=== PATIENT | male | born 1935 | race Caucasian/White ===

== ENCOUNTER 2020-03-03 06:42 | Day surgery (SDC) | payer OTHER, BC ==
[2020-02-26 11:04] VITALS: BMI 22.3
--- NOTE | 2020-02-26 11:56 | RAD REPORT ---
EXAM DESCRIPTION: Emi Wylie And Edu (2 Views)02/26/2020 11:23 am CLINICAL HISTORY: Shortness of breath/preop for cardiac catheterization COMPARISON: 2019 FINDINGS: Lungs are hyperaerated. The lungs appear clear of acute infiltrate. The heart is normal size IMPRESSION: No acute abnormalities displayed
[2020-02-26 12:00] LABS: Absolute Lymphocytes (CBC) 2.2 K/uL (0.7-4.9); Basophils % 0.7 % (0-1.3); Hematocrit 45.8 % (39.6-49.0); Lymphocytes % 37.2 % (15.3-44.8); MPV 10.5 fL (7.6-11.3); RBC Red Blood Cell Count 5.07 M/uL (4.33-5.43)
[2020-02-26 12:06] LABS: Protime INR 1.37
[2020-03-03] MEDS ORDERED: LIDOCAINE 1% 20 ML MDV ONE (07:00)
[2020-03-03] MEDS ORDERED: HEPA 1000U/500MLS 1,000 UNIT/500 ML BAG IV ONE (07:00)
[2020-03-03] MEDS ORDERED: MIDAZOLAM HCL 2 MG/2 ML INJ ONE ×2 (07:01→07:54)
[2020-03-03] MEDS ORDERED: ATROPINE SULF 1 MG/10 ML SYR IV ONE (07:03)
[2020-03-03] MEDS ORDERED: FENTANYL CITR 100 MCG/2 ML ONE (07:03)
[2020-03-03] MEDS ORDERED: NA CHLORIDE 0.9% 0 ML ONE (07:04)
[2020-03-03] MEDS ORDERED: NA CHLORIDE 0.9% 500 ML ONE (07:18)
--- NOTE | 2020-03-03 08:41 | OP ---
Date of Procedure: 03/03/2020 Surgeon: Dustin Hutchins MD [employer]: Lou Vance. Procedure: Left heart catheterization, selective coronary arteriogram. Indication: Unstable angina. Indication: Mr. Brown is a patient who is 84 years old, has a history of atrial fibrillation on Xare lto that has been stable. His atrial fibrillation is paroxysmal. Came into the office with classic unstable angina symptoms, was scheduled for a heart catheterization today on 03/03/2020. He was brou ght to the geophysical laboratory chief as an outpatient, prepped and draped in the routine sterile fashion. Given Verse d and fentanyl for sedation. Using the Seldinger technique, 10 cc of xylocaine. A 6-Danish sheath w as introduced in the right common femoral artery. Angiography in the region was normal. StarClose w as used to close the case. Deangelo catheter left and right were used to do the coronary arteriograph y. His right coronary artery was normal. He had a codominant system. The circumflex was normal, bu t he had a 60% to 70% distal left main stenosis with 80 to 90% ostial all the way to the proximal sec ond diagonal LAD stenosis. A 6-Danish sheath and catheters were used. There were no complications. Anesthesia: Total conscious sedation was 45 minutes. Postoperative Diagnosis: Severe coronary artery disease. Plan: For CABG. I will make arrangements for him to be transferred to [place] for his surgery. We will hold Ketty for now. SELINA/ILIANA Voice ID: [id number] Report ID: [id number]
[2020-03-03 11:27] VITALS: O2SAT 99
[2020-03-03 12:03] VITALS: BP 148/62; TEMP 97.1
== END 2020-03-03 12:00 | disposition short-term general hospital (02) ==
LOC: CCL 06:42
DX: I25.110 Atherosclerotic heart disease of native coronary artery with unstable angina pectoris (principal); I48.0 Paroxysmal atrial fibrillation; I34.0 Nonrheumatic mitral (valve) insufficiency; E78.2 Mixed hyperlipidemia; Z79.01 Long term (current) use of anticoagulants; Z87.891 Personal history of nicotine dependence; Z20.828 Contact with and (suspected) exposure to other viral communicable diseases
CPT/HCPCS: 85025; 80048; 36415; 85610; 85730; 71046; 93454; U0002; C1893; J2250; J3010; J7040; J1644; J0583

== ENCOUNTER 2021-06-14 18:36 | Inpatient (IN) | payer OTHER, BC ==
--- OUTSIDE RECORDS SUMMARY | 2021-06-14 18:39 | XMS REPORT | Continuity of Care Document ---
:[address] [facility] t Address [address] [place] [address] Care Team Providers Name Role Phone TONY PRIEST Primary Care Physician Unavailable COOPER DE LA ROSA Attending Clinician Unavailable COOPER DE LA ROSA Admitting Clinician Unavailable Payers Payer Name Policy Type Policy Number Effective Date Expiration Date S ource MEDICARE A B [id number] [facility] INDEMNITY [place] [id number] 2001 OS 00:00:00 Problems This patient has no known problems. Allergies, Adverse Reactions, Alerts Allergy Allergy Status Severity Reaction(s) Onset Inactive Treating Comm ents Source Name Type Date Date Clinician NO KNOWN Allergy Active Medications This patient has no known medications. Vital Signs Vital Name Observation Time Observation Value Comments Source WEIGHT 2020-03-07 04:00:00 75.161 kg WEIGHT 2020-03-06 04:40:00 75.388 kg WEIGHT 2020-03-05 03:58:00 75.796 kg WEIGHT 2020-03-18 10:57:00 74.844 kg WEIGHT 2020-03-07 04:00:00 75.161 kg WEIGHT 2020-03-06 04:40:00 75.388 kg WEIGHT 2020-03-05 03:58:00 75.796 kg Procedures This patient has no known procedures. Encounters Start End Encounter Admission Attending Care Care Encounter Source Date/Time Date/Time Type Type Clinicians Facility Department ID 2021-01-08 Inpatient ER HIRA DE LA ROSA [facility] [id number] [facility] 18:20:23 [place] 2020-03-18 2020-03-18 Out[facility] [id number] 00:00:00 00:00:00 [place] 2020-03-16 2020-03-16 Outpatient [facility] [id number] 00:[facility]:00 00:00:00 [place] Results Test Description Test Time Test Comments Results Result Comments Source TISSUE EXAM 2020-03-09 Surgical Pathology 16:17:00 Report Case: [id number] Authorizing Provider: Nadeem De La Rosa, Collected: 03/03/2020 03:01 PM Ordering Location: [facility] Received: 03/04/2020 08:21 AM PERIOPERATIVE SERVICES Pathologist: Tre Eugene MD Specimen: Chest, Mole in chest SKIN, CHEST, EXCISION: - SEBORRHEIC KERATOSIS, IRRITATED AND INFLAMED Signing Pathologist Direct Phone Line: [phone] ically signed by Tre Eugene MD on 03/09/2020 at 4:17 [id number] artery disease with angina pectoris, unspecified vessel or lesion type, unspecified whether eagle or transplanted heart ChestReceived in formalin labeled the patient's name, accession number and "mole in chest" is a unoriented 2.4 x 0.4 cm guerrero-pink skin ellipse that is excised to a depth of 0.7 cm. There is a 0.5 x 0.4 x 0.1 cm guerrero asymmetrical, keratotic lesion that is abutting the nearest long axis margin, and is 0.7 cm from the nearest tip. The margin is inked blue. The specimen is serially sectioned and entirely submitted in A1-A2, with the tips in A1.MAYCO Hunt HT (ASCP)Sections show skin with acanthosis, hyperkeratosis, and horn pseudocysts. Some keratinocytes form squamous eddies. Reactive changes are present. There is an associated infiltrate of lymphocytes and histiocytes. POCT-GLUCOSE METER 2020-03-08 10:21:00 Test Item Value Reference Range Interpretation Comme nts POC-GLUCOSE METER (BEAKER) 135 mg/dL 70-110 H : TESTED AT [facility] [address] (test code = 1538) [place], [id number]: Manager Of International/Techni suma ID = [id number] for MO DUGGAN [place] BASIC METABOLIC [id number] 07:18:00 Test Item Value Reference Range Interpretation Comments SODIUM (BEAKER) 135 meq/L 136-145 L (test code = 381) POTASSIUM (BEAKER) 3.6 meq/L 3.5-5.1 (test code = 379) CHLORIDE (BEAKER) 96 meq/L 98-107 L (test code = 382) CO2 (BEAKER) (test 31 meq/L 22-29 H code = 355) BLOOD UREA NITROGEN 12 mg/dL 7-21 (BEAKER) (test code = 354) CREATININE (BEAKER) 0.81 mg/dL 0.57-1.25 (test code = 358) GLUCOSE RANDOM 105 mg/dL 70-105 (BEAKER) (test code = 652) CALCIUM (BEAKER) 8.3 mg/dL 8.4-10.2 L (test code = 697) EGFR (BEAKER) (test 91 mL/min/1.73 ESTIMA LULU GFR IS code = 1092) sq m NOT ACCURATE CREATININE CLEARANCE IN PREDICTING GLOMERULAR FILTRATION RATE . ESTIMATED GFR I S NOT APPLICABLE FOR DIALYSIS PATIEN TS. Manager Of International ID - FIDEL [id number] 07:18:00 Test Item Value Reference Range Interpretation Comments MAGNESIUM (BEAKER) (test code = 1.7 mg/dL 1.6-2.6 627) Manager Of International ID - FIDEL [id number] 07:18:00 Test Item Value Reference Range Interpretation Comments PHOSPHORUS (BEAKER) (test code = 2.7 mg/dL 2.3-4.7 604) Manager Of International ID - FIDEL LPOCT-GLUCOSE [id number] 07:02:00 Test Item Value Reference Range Interpretation Comments POC-GLUCOSE METER 116 mg/dL 70-110 H : TESTED A T [facility] 6720 (BEAKER) (test code = [facility], 1538) [address]: Manager Of International/Techni suma ID = [id number] for FLOYD LIN POCT-GLUCOSE [id number] 07:01:00 Test Item Value Reference Range Interpretation Comments POC-GLUCOSE METER 124 mg/dL 70-110 H : TESTED A T [facility] 6720 (BEAKER) (test code = [facility], 1538) [address]: Manager Of International/Techni suma ID = [id number] for FLOYD LIN CBC (HEMOGRAM ONLY)2020-03-08 06:44:00 Test Item Value Reference Range Interpretation Comments WHITE BLOOD CELL COUNT (BEAKER) 7.4 K/ L 3.5-10.5 (test code = 775) RED BLOOD CELL COUNT (BEAKER) 3.10 M/ L 4.63-6.08 L (test code = 761) HEMOGLOBIN (BEAKER) (test code = 9.4 GM/DL 13.7-17.5 L 410) HEMATOCRIT (BEAKER) (test code = 28.4 % 40.1-51.0 L 411) MEAN CORPUSCULAR VOLUME (BEAKER) 91.6 fL 79.0-92.2 (test code = 753) MEAN CORPUSCULAR HEMOGLOBIN 30.3 pg 25.7-32.2 (BEAKER) (test code = 751) MEAN CORPUSCULAR HEMOGLOBIN CONC 33.1 GM/DL 32.3-36.5 (BEAKER) (test code = 752) RED CELL DISTRIBUTION WIDTH 12.5 % 11.6-14.4 (BEAKER) (test code = 412) PLATELET COUNT (BEAKER) (test 139 K/CU MM 150-450 L code = 756) MEAN PLATELET VOLUME (BEAKER) 12.1 fL 9.4-12.4 (test code = 754) NUCLEATED RED BLOOD CELLS 0 /100 WBC 0-0 (BEAKER) (test code = 413) POCT-GLUCOSE [id number] 21:50:00 Test Item Value Reference Range Interpretation Comments POC-GLUCOSE METER 122 mg/dL 70-110 H : TESTED A T [facility] [address] (BEAKER) (test code = [place], 1538) [address]: Manager Of International/Techni suma ID = [id number] for PE RALES, EDGARDO CT, CHEST, WITHOUT [id number] 09:41:00Unlisted Reason for Exam - Click Yes and Enter Reason Below->No [facility] 1935 Sex: MFINAL REPORT CT of the chest, without contrast, 03/07/2020. Hist ory: Shortness of breath. Posterior cardiovascular surgery. Comparison: Chest x- ray 03/05/2020, 03/03/2020. Technique: Multidetector CT scanning of the chest was performed from the level of the thoracic inlet to the upper abdomen without IV or oral contrast. This exam was performed according to our departmental dose- optimization program which includes automated exposure control, adjustment of the mA and/or kV according to patient size and/or use of iterative reconstruction technique. Discussion: Evaluation of the heart and mediastinal structures is limited secondary to lack of intravenous contrast. The heart, aorta, and pulmonary vessels are normal in size. Median sternotomy wires and post ACB findings are noted. There is no axillary or mediastinal adenopathy. The central airways are patent. 2 areas of linear opacities are present in the left lower lobe suggestive of postsurgical change versus prior chest tube tract. Small bilateral pleural effusions are present, left slightly more than right. Bibasilar dependent atelectasis isnoted. A calcified granuloma is present in the left lower lobe. There is no evidence of consolidation or suspicious nodule. The soft tissues and osseous structures are unremarkable. Limited evaluationof the upper abdomen shows normal adrenal glands. IMPRESSION:Bibasilar atelectasis and small bilateral pleural effusions. No evidence of CHF or pneumonia. Signed: Nadeem Moya MDReport Verified Date/Time: 03/07/2020 09:41:32 Reading Location: [facility] [address] [place] [address] Consult Reading Room POCT-GLUCOSE [id number] 08:43:00 Test Item Value Reference Range Interpretation Comments POC-GLUCOSE METER 110 mg/dL 70-110 : TESTED A T [facility] [address] [facility] (test code = [place], 1538) [address]: Manager Of International/Techni suma ID = [id number] for FLOYD LIN BASIC METABOLIC [id number] 05:39:00 Test Item Value Reference Range Interpretation Comments SODIUM (BEAKER) 133 meq/L 136-145 L (test code = 381) POTASSIUM (BEAKER) 3.7 meq/L 3.5-5.1 (test code = 379) CHLORIDE (BEAKER) 96 meq/L 98-107 L (test code = 382) CO2 (BEAKER) (test 29 meq/L 22-29 code = 355) BLOOD UREA NITROGEN 13 mg/dL 7-21 (BEAKER) (test code = 354) CREATININE (BEAKER) 0.83 mg/dL 0.57-1.25 (test code = 358) GLUCOSE RANDOM 116 mg/dL 70-105 H (BEAKER) (test code = 652) CALCIUM (BEAKER) 8.4 mg/dL 8.4-10.2 (test code = 697) EGFR (BEAKER) (test 88 mL/min/1.73 ESTIMA LULU GFR IS code = 1092) sq m NOT ACCURATE CREATININE CLEARANCE IN PREDICTING GLOMERULAR FILTRATION RATE . ESTIMATED GFR I S NOT APPLICABLE FOR DIALYSIS PATIEN TS. Manager Of International ID - [id number] 05:39:00 Test Item Value Reference Range Interpretation Comments MAGNESIUM (BEAKER) (test code = 1.7 mg/dL 1.6-2.6 627) Manager Of International ID - [id number] 05:39:00 Test Item Value Reference Range Interpretation Comments PHOSPHORUS (BEAKER) (test code = 2.5 mg/dL 2.3-4.7 604) Manager Of International ID - EDASICBC (HEMOGRAM ONLY)2020-03-07 05:00:00 Test Item Value Reference Range Interpretation Comments WHITE BLOOD CELL COUNT (BEAKER) 7.2 K/ L 3.5-10.5 (test code = 775) RED BLOOD CELL COUNT (BEAKER) 3.15 M/ L 4.63-6.08 L (test code = 761) HEMOGLOBIN (BEAKER) (test code = 9.5 GM/DL 13.7-17.5 L 410) HEMATOCRIT (BEAKER) (test code = 29.1 % 40.1-51.0 L 411) MEAN CORPUSCULAR VOLUME (BEAKER) 92.4 fL 79.0-92.2 H (test code = 753) MEAN CORPUSCULAR HEMOGLOBIN 30.2 pg 25.7-32.2 (BEAKER) (test code = 751) MEAN CORPUSCULAR HEMOGLOBIN CONC 32.6 GM/DL 32.3-36.5 (BEAKER) (test code = 752) RED CELL DISTRIBUTION WIDTH 12.4 % 11.6-14.4 (BEAKER) (test code = 412) PLATELET COUNT (BEAKER) (test 108 K/CU MM 150-450 L code = 756) MEAN PLATELET VOLUME (BEAKER) 12.7 fL 9.4-12.4 H (test code = 754) NUCLEATED RED BLOOD CELLS 0 /100 WBC 0-0 (BEAKER) (test code = 413) BUN AND CREATININE [id number] 17:55:00 Test Item Value Reference Range Interpretation Comments BLOOD UREA NITROGEN 12 mg/dL 7-21 (BEAKER) (test code = 354) CREATININE (BEAKER) 0.84 mg/dL 0.57-1.25 (test code = 358) BUN/CREAT RATIO 14 For a normal (BEAKER) (test code individu al on a = [id number]) normal diet, t he reference inter karol for the mass ra casie ranges between 12:1 and 20:1 (BUN i n mg/dL/creatinin e in mg/dL) EGFR (BEAKER) (test 87 mL/min/1.73 ESTIMA LULU GFR IS code = 1092) sq m NOT ACCURATE CREATININE CLEARANCE IN PREDICTING GLOMERULAR FILTRATION RATE . ESTIMATED GFR I S NOT APPLICABLE FOR DIALYSIS PATIEN TS. Manager Of International ID - ADMINPOCT-GLUCOSE [id number] 16:29:00 Test Item Value Reference Range Interpretation Comments POC-GLUCOSE METER 139 mg/dL 70-110 H : TESTED A T [facility] [address] ([employer]) (test code = [facility], 1538) [address]: Manager Of International/Techni suma ID = [id number] for Roxanne Manley POCT-GLUCOSE [id number] 12:23:00 Test Item Value Reference Range Interpretation Comments POC-GLUCOSE METER 143 mg/dL 70-110 H : TESTED A T [facility] 67[address] ([employer]) (test code = [facility], 1538) [address]: Manager Of International/Techni suma ID = [id number] for Roxanne Manley POCT-GLUCOSE [id number] 08:52:00 Test Item Value Reference Range Interpretation Comments POC-GLUCOSE METER 132 mg/dL 70-110 H : TESTED A T [facility] 6720 (BEAKER) (test code = CALE Frye [facility], 1538) [address]: Manager Of International/Techni suma ID = [id number] for Roxanne Manley BASIC METABOLIC [id number] 06:11:00 Test Item Value Reference Range Interpretation Comments SODIUM (BEAKER) 136 meq/L 136-145 (test code = 381) POTASSIUM (BEAKER) 4.0 meq/L 3.5-5.1 (test code = 379) CHLORIDE (BEAKER) 101 meq/L 98-107 (test code = 382) CO2 (BEAKER) (test 28 meq/L 22-29 code = 355) BLOOD UREA NITROGEN 13 mg/dL 7-21 (BEAKER) (test code = 354) CREATININE (BEAKER) 0.74 mg/dL 0.57-1.25 (test code = 358) GLUCOSE RANDOM 115 mg/dL 70-105 H (BEAKER) (test code = 652) CALCIUM (BEAKER) 8.3 mg/dL 8.4-10.2 L (test code = 697) EGFR (BEAKER) (test 101 mL/min/1.73 ESTIM ATED GFR IS code = 1092) sq m NOT ACCURATE CREATININE CLEARANCE IN PREDICTING GLOMERULAR FILTRATION RATE . ESTIMATED GFR I S NOT APPLICABLE FOR DIALYSIS PATIEN TS. Manager Of International ID - [id number] 06:11:00 Test Item Value Reference Range Interpretation Comments PHOSPHORUS (BEAKER) (test code = 2.1 mg/dL 2.3-4.7 L 604) Manager Of International ID - ADMINCBC W/PLT COUNT & AUTO [id number] 05:34:00 Test Item Value Reference Range Interpretation Comments WHITE BLOOD CELL COUNT (BEAKER) 7.5 K/ L 3.5-10.5 (test code = 775) RED BLOOD CELL COUNT (BEAKER) 3.06 M/ L 4.63-6.08 L (test code = 761) HEMOGLOBIN (BEAKER) (test code = 9.3 GM/DL 13.7-17.5 L 410) HEMATOCRIT (BEAKER) (test code = 28.4 % 40.1-51.0 L 411) MEAN CORPUSCULAR VOLUME (BEAKER) 92.8 fL 79.0-92.2 H (test code = 753) MEAN CORPUSCULAR HEMOGLOBIN 30.4 pg 25.7-32.2 (BEAKER) (test code = 751) MEAN CORPUSCULAR HEMOGLOBIN CONC 32.7 GM/DL 32.3-36.5 (BEAKER) (test code = 752) RED CELL DISTRIBUTION WIDTH 12.3 % 11.6-14.4 (BEAKER) (test code = 412) PLATELET COUNT (BEAKER) (test code 77 K/CU MM 150-450 L = 756) MEAN PLATELET VOLUME (BEAKER) 12.7 fL 9.4-12.4 H (test code = 754) NUCLEATED RED BLOOD CELLS (BEAKER) 0 /100 WBC 0-0 (test code = 413) NEUTROPHILS RELATIVE PERCENT 72 % (BEAKER) (test code = 429) LYMPHOCYTES RELATIVE PERCENT 17 % (BEAKER) (test code = 430) MONOCYTES RELATIVE PERCENT 9 % (BEAKER) (test code = 431) EOSINOPHILS RELATIVE PERCENT 2 % (BEAKER) (test code = 432) BASOPHILS RELATIVE PERCENT 0 % (BEAKER) (test code = 437) NEUTROPHILS ABSOLUTE COUNT 5.41 K/ L 1.78-5.38 H (BEAKER) (test code = 670) LYMPHOCYTES ABSOLUTE COUNT 1.23 K/ L 1.32-3.57 L (BEAKER) (test code = 414) MONOCYTES ABSOLUTE COUNT (BEAKER) 0.68 K/ L 0.30-0.82 (test code = 415) EOSINOPHILS ABSOLUTE COUNT 0.11 K/ L 0.04-0.54 (BEAKER) (test code = 416) BASOPHILS ABSOLUTE COUNT (BEAKER) 0.02 K/ L 0.01-0.08 (test code = 417) IMMATURE GRANULOCYTES-RELATIVE 0 % 0-1 PERCENT (BEAKER) (test code = 2801) POCT-GLUCOSE [id number] 22:09:00 Test Item Value Reference Range Interpretation Comments POC-GLUCOSE METER 127 mg/dL 70-110 H : TESTED A T [facility] 6720 (BEAKER) (test code = [place], 1538) [address]: Manager Of International/Techni suma ID = [id number] for Re yes, Sairy POCT-GLUCOSE [id number] 17:18:00 Test Item Value Reference Range Interpretation Comments POC-GLUCOSE METER 129 mg/dL 70-110 H : TESTED A T [facility] 6720 (BEAKER) (test code = [facility] Melva [facility], 1538) [address]: Manager Of International/Techni suma ID = [id number] for GO MEZ (V), SULEYDI POCT-GLUCOSE [id number] 12:42:00 Test Item Value Reference Range Interpretation Comments POC-GLUCOSE METER 151 mg/dL 70-110 H : TESTED A T [facility] 6720 (BEAKER) (test code = [facility], 1538) 31256: Manager Of International/Techni suma ID = [id number] for OR STONEY RAZO RAD, CHEST, 1 VIEW, NON [id number] 10:28:00Reason for exam:->shortness of breathShould this be performed at the bedside?->Yes [facility] 1935 Sex: MFINAL REPORT INDICATION: shortness of breath COMPARISON: March 04, 2020 TECHNIQUE: Single frontal view of the chest. FINDINGS: Lungs and pleura: Clear lungs. No effusion.Heart and mediastinum: Normal heart size. Unremarkable mediastinal contours.Osseous structures: Noacute abnormality.Other: None. IMPRESSION: No acute intrathoracic abnormality. Signed: Eddie Khalil Verified Date/Time: 03/05/2020 10:28:06 Reading Location: [facility] Reading Room POCT-GLUCOSE [id number] 08:12:00 Test Item Value Reference Range Interpretation Comments POC-GLUCOSE METER 100 mg/dL 70-110 : TESTED A T [facility] 6720 (BEAKER) (test code = [place], 1538) [address]: Manager Of International/Techni suma ID = [id number] for OR CHRISTOPHERSTONEY Porter BASIC METABOLIC [id number] 06:22:00 Test Item Value Reference Range Interpretation Comments SODIUM (BEAKER) 135 meq/L 136-145 L (test code = 381) POTASSIUM (BEAKER) 3.9 meq/L 3.5-5.1 (test code = 379) CHLORIDE (BEAKER) 101 meq/L 98-107 (test code = 382) CO2 (BEAKER) (test 26 meq/L 22-29 code = 355) BLOOD UREA NITROGEN 15 mg/dL 7-21 (BEAKER) (test code = 354) CREATININE (BEAKER) 0.86 mg/dL 0.57-1.25 (test code = 358) GLUCOSE RANDOM 120 mg/dL 70-105 H (BEAKER) (test code = 652) CALCIUM (BEAKER) 8.1 mg/dL 8.4-10.2 L (test code = 697) EGFR (BEAKER) (test 85 mL/min/1.73 ESTIMA LULU GFR IS code = 1092) sq m NOT ACCURATE CREATININE CLEARANCE IN PREDICTING GLOMERULAR FILTRATION RATE . ESTIMATED GFR I S NOT APPLICABLE FOR DIALYSIS PATIEN TS. Manager Of International ID - JEFRY [id number] 06:22:00 Test Item Value Reference Range Interpretation Comments MAGNESIUM (BEAKER) (test code = 1.9 mg/dL 1.6-2.6 627) Manager Of International ID - JEFRY [id number] 06:22:00 Test Item Value Reference Range Interpretation Comments PHOSPHORUS (BEAKER) (test code = 2.0 mg/dL 2.3-4.7 L 604) Manager Of International ID - JEFRY MCBC (HEMOGRAM ONLY)2020-03-05 05:14:00 Test Item Value Reference Range Interpretation Comments WHITE BLOOD CELL COUNT (BEAKER) 8.5 K/ L 3.5-10.5 (test code = 775) RED BLOOD CELL COUNT (BEAKER) 2.99 M/ L 4.63-6.08 L (test code = 761) HEMOGLOBIN (BEAKER) (test code = 9.1 GM/DL 13.7-17.5 L 410) HEMATOCRIT (BEAKER) (test code = 28.3 % 40.1-51.0 L 411) MEAN CORPUSCULAR VOLUME (BEAKER) 94.6 fL 79.0-92.2 H (test code = 753) MEAN CORPUSCULAR HEMOGLOBIN 30.4 pg 25.7-32.2 (BEAKER) (test code = 751) MEAN CORPUSCULAR HEMOGLOBIN CONC 32.2 GM/DL 32.3-36.5 L (BEAKER) (test code = 752) RED CELL DISTRIBUTION WIDTH 12.4 % 11.6-14.4 (BEAKER) (test code = 412) PLATELET COUNT (BEAKER) (test code 70 K/CU MM 150-450 L = 756) MEAN PLATELET VOLUME (BEAKER) 12.4 fL 9.4-12.4 (test code = 754) NUCLEATED RED BLOOD CELLS (BEAKER) 0 /100 WBC 0-0 (test code = 413) POCT-GLUCOSE [id number] 21:40:00 Test Item Value Reference Range Interpretation Comments POC-GLUCOSE METER 134 mg/dL 70-110 H : TESTED A T [facility] 6720 (BEAKER) (test code = [facility], 1538) 04692: Manager Of International/Techni suma ID = [id number] for Re yes, Sairy POCT-GLUCOSE [id number] 17:30:00 Test Item Value Reference Range Interpretation Comments POC-GLUCOSE METER 117 mg/dL 70-110 H : TESTED A T [facility] 6720 (BEAKER) (test code = [facility], 1538) 23630: Manager Of International/Techni suma ID = [id number] for MU BERNY LEVIN [id number] 11:56:00 Test Item Value Reference Range Interpretation Comments MAGNESIUM (BEAKER) (test code = 2.1 mg/dL 1.6-2.6 627) Manager Of International ID - AAHAMIDPOCT-GLUCOSE [id number] 10:28:00 Test Item Value Reference Range Interpretation Comments POC-GLUCOSE METER 136 mg/dL 70-110 H : TESTED A T [facility] 6720 (BEAKER) (test code = CALE Frye [facility], 1538) 50[address]: Manager Of International/Techni suma ID = [id number] for BERNY CALL LACTIC ACID, [id number] 05:34:00 Test Item Value Reference Range Interpretation Comments LACTATE BLOOD ARTERIAL (2) 1.2 mmol/L 0.5-2.2 (BEAKER) (test code = 2874) Manager Of International ID - EDASIBLOOD GAS, [id number] 05:19:00 Test Item Value Reference Range Interpretation Comments PH ARTERIAL (BEAKER) (test code = 7.38 7.35-7.45 383) PCO2 ARTERIAL (BEAKER) (test code 43 mm Hg 35-45 = 384) PO2 ARTERIAL (BEAKER) (test code 142 mm Hg 80-90 H = 385) O2 SATURATION ARTERIAL (BEAKER) 98.7 % 96.0-97.0 H (test code = 386) HCO3 ARTERIAL (BEAKER) (test code 25 mmol/L 21-29 = 388) BASE EXCESS ARTERIAL (BEAKER) -0.4 mmol/L -2.0-3.0 (test code = 387) PATIENT TEMPERATURE (BEAKER) 37.5 (test code = 1818) FIO2 (BEAKER) (test code = 1819) 36.0 POCT-GLUCOSE [id number] 05:17:00 Test Item Value Reference Range Interpretation Comments POC-GLUCOSE METER 168 mg/dL 70-110 H : TESTED A T [facility] 6720 (BEAKER) (test code = CALE Frye [facility], 153) 62479: Manager Of International/Techni suma ID = [id number] for Jv Domingo RAD, CHEST, 1 VIEW, NON [id number] 03:28:00while patient is intubated or has chest tubes.Reason for exam:->Status post CV SurgeryShould thisbe performed at the bedside?->Yes [facility] 1935 Sex: MFINAL REPORT CLINICAL INDICATION: Postop Comparison: 03/03/2020 The e xamination is limited by exclusion of the left costophrenic sulcus. The cardiomediastinal contours are stable. The lung volumes are stable after extubation. There is no focal consolidation, pneumothorax, large pleural effusion or evidence of overt pulmonary edema. Remaining support lines are stable. Signed: Jamil Cox MDReport Verified Date/Time: 03/04/2020 03:28:16 BASIC METABOLIC [id number] 03:25:00 Test Item Value Reference Range Interpretation Comments SODIUM (BEAKER) 138 meq/L 136-145 (test code = 381) POTASSIUM (BEAKER) 4.3 meq/L 3.5-5.1 (test code = 379) CHLORIDE (BEAKER) 106 meq/L 98-107 (test code = 382) CO2 (BEAKER) (test 21 meq/L 22-29 L code = 355) BLOOD UREA NITROGEN 13 mg/dL 7-21 (BEAKER) (test code = 354) CREATININE (BEAKER) 0.81 mg/dL 0.57-1.25 (test code = 358) GLUCOSE RANDOM 186 mg/dL 70-105 H (BEAKER) (test code = 652) CALCIUM (BEAKER) 7.8 mg/dL 8.4-10.2 L (test code = 697) EGFR (BEAKER) (test 91 mL/min/1.73 ESTIMA LULU GFR IS code = 1092) sq m NOT ACCURATE CREATININE CLEARANCE IN PREDICTING GLOMERULAR FILTRATION RATE . ESTIMATED GFR I S NOT APPLICABLE FOR DIALYSIS PATIEN TS. Manager Of International ID - [id number] 03:09:00 Test Item Value Reference Range Interpretation Comments MAGNESIUM (BEAKER) (test code = 1.8 mg/dL 1.6-2.6 627) Manager Of International ID - [id number] 03:09:00 Test Item Value Reference Range Interpretation Comments PHOSPHORUS (BEAKER) (test code = 3.1 mg/dL 2.3-4.7 604) Manager Of International ID - EDASICBC (HEMOGRAM ONLY)2020-03-04 02:54:00 Test Item Value Reference Range Interpretation Comments WHITE BLOOD CELL COUNT (BEAKER) 8.4 K/ L 3.5-10.5 (test code = 775) RED BLOOD CELL COUNT (BEAKER) 3.04 M/ L 4.63-6.08 L (test code = 761) HEMOGLOBIN (BEAKER) (test code = 9.1 GM/DL 13.7-17.5 L 410) HEMATOCRIT (BEAKER) (test code = 28.3 % 40.1-51.0 L 411) MEAN CORPUSCULAR VOLUME (BEAKER) 93.1 fL 79.0-92.2 H (test code = 753) MEAN CORPUSCULAR HEMOGLOBIN 29.9 pg 25.7-32.2 (BEAKER) (test code = 751) MEAN CORPUSCULAR HEMOGLOBIN CONC 32.2 GM/DL 32.3-36.5 L (BEAKER) (test code = 752) RED CELL DISTRIBUTION WIDTH 12.1 % 11.6-14.4 (BEAKER) (test code = 412) PLATELET COUNT (BEAKER) (test code 70 K/CU MM 150-450 L = 756) MEAN PLATELET VOLUME (BEAKER) 12.2 fL 9.4-12.4 (test code = 754) NUCLEATED RED BLOOD CELLS (BEAKER) 0 /100 WBC 0-0 (test code = 413) LACTIC ACID, [id number] 00:26:00 Test Item Value Reference Range Interpretation Comments LACTATE BLOOD ARTERIAL (2) 1.6 mmol/L 0.5-2.2 (BEAKER) (test code = 2874) Manager Of International ID - JEFRY MPOCT-GLUCOSE [id number] 00:19:00 Test Item Value Reference Range Interpretation Comments POC-GLUCOSE METER 171 mg/dL 70-110 H : TESTED A T [facility] 6720 (BEAKER) (test code = [place], 1538) [address]: Manager Of International/Techni suma ID = [id number] for Jv Domingo BLOOD GAS, [id number] 00:16:00 Test Item Value Reference Range Interpretation Comments PH ARTERIAL (BEAKER) (test code = 7.36 7.35-7.45 383) PCO2 ARTERIAL (BEAKER) (test code 42 mm Hg 35-45 = 384) PO2 ARTERIAL (BEAKER) (test code 145 mm Hg 80-90 H = 385) O2 SATURATION ARTERIAL (BEAKER) 98.7 % 96.0-97.0 H (test code = 386) HCO3 ARTERIAL (BEAKER) (test code 23 mmol/L 21-29 = 388) BASE EXCESS ARTERIAL (BEAKER) -2.2 mmol/L -2.0-3.0 L (test code = 387) PATIENT TEMPERATURE (BEAKER) 37.5 (test code = 1818) FIO2 (BEAKER) (test code = 1819) 36.0 BLOOD GAS, [id number] 21:27:00 Test Item Value Reference Range Interpretation Comments PH ARTERIAL (BEAKER) (test code = 7.37 7.35-7.45 383) PCO2 ARTERIAL (BEAKER) (test code 41 mm Hg 35-45 = 384) PO2 ARTERIAL (BEAKER) (test code 146 mm Hg 80-90 H = 385) O2 SATURATION ARTERIAL (BEAKER) 98.9 % 96.0-97.0 H (test code = 386) HCO3 ARTERIAL (BEAKER) (test code 23 mmol/L 21-29 = 388) BASE EXCESS ARTERIAL (BEAKER) -2.1 mmol/L -2.0-3.0 L (test code = 387) PATIENT TEMPERATURE (BEAKER) 36.1 (test code = 1818) FIO2 (BEAKER) (test code = 1819) 40.0 LACTIC ACID, [id number] 19:55:00 Test Item Value Reference Range Interpretation Comments LACTATE BLOOD 2.3 mmol/L 0.5-2.2 H Specimen sligh tly ARTERIAL (2) (BEAKER) hemoly zed (test code = 2874) Manager Of International ID - BSCBC W/PLT COUNT & AUTO [id number] 19:39:00 Test Item Value Reference Range Interpretation Comments WHITE BLOOD CELL COUNT (BEAKER) 15.2 K/ L 3.5-10.5 H (test code = 775) RED BLOOD CELL COUNT (BEAKER) 3.39 M/ L 4.63-6.08 L (test code = 761) HEMOGLOBIN (BEAKER) (test code = 10.4 GM/DL 13.7-17.5 L 410) HEMATOCRIT (BEAKER) (test code = 31.8 % 40.1-51.0 L 411) MEAN CORPUSCULAR VOLUME (BEAKER) 93.8 fL 79.0-92.2 H (test code = 753) MEAN CORPUSCULAR HEMOGLOBIN 30.7 pg 25.7-32.2 (BEAKER) (test code = 751) MEAN CORPUSCULAR HEMOGLOBIN CONC 32.7 GM/DL 32.3-36.5 (BEAKER) (test code = 752) RED CELL DISTRIBUTION WIDTH 12.2 % 11.6-14.4 (BEAKER) (test code = 412) PLATELET COUNT (BEAKER) (test code 91 K/CU MM 150-450 L = 756) MEAN PLATELET VOLUME (BEAKER) 12.1 fL 9.4-12.4 (test code = 754) NUCLEATED RED BLOOD CELLS (BEAKER) 0 /100 WBC 0-0 (test code = 413) NEUTROPHILS RELATIVE PERCENT 76 % (BEAKER) (test code = 429) LYMPHOCYTES RELATIVE PERCENT 19 % (BEAKER) (test code = 430) MONOCYTES RELATIVE PERCENT 4 % (BEAKER) (test code = 431) EOSINOPHILS RELATIVE PERCENT 1 % (BEAKER) (test code = 432) BASOPHILS RELATIVE PERCENT 0 % (BEAKER) (test code = 437) NEUTROPHILS ABSOLUTE COUNT 11.51 K/ L 1.78-5.38 H (BEAKER) (test code = 670) LYMPHOCYTES ABSOLUTE COUNT 2.87 K/ L 1.32-3.57 (BEAKER) (test code = 414) MONOCYTES ABSOLUTE COUNT (BEAKER) 0.57 K/ L 0.30-0.82 (test code = 415) EOSINOPHILS ABSOLUTE COUNT 0.10 K/ L 0.04-0.54 (BEAKER) (test code = 416) BASOPHILS ABSOLUTE COUNT (BEAKER) 0.04 K/ L 0.01-0.08 (test code = 417) IMMATURE GRANULOCYTES-RELATIVE 1 % 0-1 PERCENT (BEAKER) (test code = 2801) CALCIUM, [id number] 19:36:00 Test Item Value Reference Range Interpretation Comments CALCIUM IONIZED (BEAKER) (test 1.06 mmol/L 1.12-1.27 L code = 698) PH, BLOOD (BEAKER) (test code = 7.42 1810) BLOOD GAS, [id number] 19:36:00 Test Item Value Reference Range Interpretation Comments PH ARTERIAL (BEAKER) (test code = 7.42 7.35-7.45 383) PCO2 ARTERIAL (BEAKER) (test code 34 mm Hg 35-45 L = 384) PO2 ARTERIAL (BEAKER) (test code 178 mm Hg 80-90 H = 385) O2 SATURATION ARTERIAL (BEAKER) 99.3 % 96.0-97.0 H (test code = 386) HCO3 ARTERIAL (BEAKER) (test code 22 mmol/L 21-29 = 388) BASE EXCESS ARTERIAL (BEAKER) -2.9 mmol/L -2.0-3.0 L (test code = 387) PATIENT TEMPERATURE (BEAKER) 35.0 (test code = 1818) FIO2 (BEAKER) (test code = 1819) 40.0 GLUCOSE-STAT [id number] 19:36:00 Test Item Value Reference Range Interpretation Comments GLUCOSE RANDOM (BEAKER) (test code 148 mg/dL 70-110 H = 652) HGB/HCT (H&H) - STAT [id number] 19:36:00 Test Item Value Reference Range Interpretation Comments HEMOGLOBIN (BEAKER) (test code = 12.0 GM/DL 13.0-16.8 L 410) HEMATOCRIT (BEAKER) (test code = 35.0 % 40.0-50.0 L 411) SODIUM NA-STAT [id number] 19:35:00 Test Item Value Reference Range Interpretation Comments SODIUM (BEAKER) (test code = 381) 135 meq/L 136-145 L POTASSIUM-STAT [id number] 19:35:00 Test Item Value Reference Range Interpretation Comments POTASSIUM (BEAKER) (test code = 4.2 meq/L 3.6-5.5 379) SARS-COV2/RT-PCR ([facility])2020-03-03 18:50:00 Test Item Value Reference Range Interpretation Comments SARS-COV2/RT-PCR (test Negative Not Detected, Negative, code = 3130971) See external report for linked test SARS-COV-[address] [facility] (test code = 3566122) Negative result for this test determines that SARS-CoV-2 RNA was not present in the specimen above the Limit of Detection (LOD). However, Negative results do not preclude SARS-CoV-2 infection and should not be used as the sole basis for treatment or patient management decisions. Negative results mustbe combined with clinical observations, patient history, and epidemiological information. A false negative result may occur if a specimen is improperly collected, transported or handled. A false negative result should be considered if patient's recent exposures or clinical presentation indicate that COVID-19 (SARS-CoV-2) is likely and diagnostic tests for other causes of illness are negative. Re-testing should be considered in cases of suspected false negatives.The limit of detection for this assay is 800 copies/mL.This SARS CoV-2 test is a real-time RT-PCR test intended for the qualitative detection of nucleic acid from SARS-CoV-2 in a nasopharyngeal swab specimen collected from individuals susp ected of COVID-19 by their healthcare provider.This test has not been Food and Drug Administration (FDA) cleared or approved. This is a modified version of an approved Emergency Use Authorization (EUA) and is in the process of review by the FDA. Once authorized by the FDA, the issued EUA will be effective until the declaration that circumstances exist justifying the authorization of the emergency use of in vitro diagnostic tests for detection and/or diagnosis of COVID-19 is terminated under Section 564(b)(2) of the Act or the EUA is revoked under Section 564(g) of the Act.Fact Sheet for Healthcare Providers:https://www.[employer].com/sites/default/files/product/documents/Fact_Shee j_WP_Ztgxavqhc_Ayge_EAIP-LaQ-9.pdfFact Sheet for Healthcare Patients:https://www.[employer].com/sites/default/files/product/ documents/Eyss_Zkinu_Xendyjwv_Srqr_EPOX-RjM-4.pdfPerforming Laboratory:[facility], [place] [address]AX/[id number] 18:18:00 Test Item Value Reference Range Interpretation Comments PROTIME (BEAKER) (test code = 18.4 seconds 11.9-14.2 H 759) INR (BEAKER) (test code = 370) 1.58 <=5.90 PARTIAL THROMBOPLASTIN TIME 28.1 seconds 22.5-36.0 (BEAKER) (test code = 760) Effective 08/29/2018: PT Reference Range ChangeNew: 11.9-14.2 Previous: 11.7- 14.7RECOMMENDED COUMADIN/WARFARIN INR THERAPY RANGESSTANDARD DOSE: 2.0-3.0 Includes: PROPHYLAXIS for venous thrombosis, systemic embolization; TREATMENT for venous thrombosis and/or pulmonary embolus.HIGH RISK: Target INR is2.5-3.5 for patients wiht mechanical heart valves.[id number] 18:02:00 Test Item Value Reference Range Interpretation Comments MAGNESIUM (BEAKER) 1.9 mg/dL 1.6-2.6 Specimen slightly (test code = 627) hemolyzed Manager Of International ID - [id number] 18:02:00 Test Item Value Reference Range Interpretation Comments PHOSPHORUS (BEAKER) 3.3 mg/dL 2.3-4.7 Specimen slightly (test code = 604) hemolyzed Manager Of International ID - [id number] 18:00:00 Test Item Value Reference Range Interpretation Comments MAGNESIUM (BEAKER) 2.3 mg/dL 1.6-2.6 Specimen slightly (test code = 627) hemolyzed Manager Of International ID - [id number] 18:00:00 Test Item Value Reference Range Interpretation Comments PHOSPHORUS (BEAKER) 2.6 mg/dL 2.3-4.7 Specimen slightly (test code = 604) hemolyzed Manager Of International ID - BSBASIC METABOLIC [id number] 18:00:00 Test Item Value Reference Range Interpretation Comments SODIUM (BEAKER) 135 meq/L 136-145 L (test code = 381) POTASSIUM (BEAKER) 4.6 meq/L 3.5-5.1 Specimen slightly (test code = 379) hemolyzed CHLORIDE (BEAKER) 110 meq/L 98-107 H (test code = 382) CO2 (BEAKER) (test 20 meq/L 22-29 L code = 355) BLOOD UREA NITROGEN 12 mg/dL 7-21 (BEAKER) (test code = 354) CREATININE (BEAKER) 0.75 mg/dL 0.57-1.25 Specimen slightly (test code = 358) hemolyzed GLUCOSE RANDOM 137 mg/dL 70-105 H (BEAKER) (test code = 652) CALCIUM (BEAKER) 9.2 mg/dL 8.4-10.2 (test code = 697) EGFR (BEAKER) (test 99 mL/min/1.73 ESTIMA LULU GFR IS code = 1092) sq m NOT ACCURATE CREATININE CLEARANCE IN PREDICTING GLOMERULAR FILTRATION RATE . ESTIMATED GFR I S NOT APPLICABLE FOR DIALYSIS PATIEN TS. Manager Of International ID - BSRAD, CHEST, 1 VIEW, NON [id number] 18:00:00Reason for exam:- >s/p cv [facility] 1935 Sex: MFINAL REPORT CHEST ONE VIEW HISTORY: Status post cardiovascular surge ry COMPARISON: None FINDINGS: Single portable AP examination of the chest was performed. Sternotomywires are present. An endotracheal tube is present, with its tip 5.5 cm proximal to the alejandro. Right jugular catheter tip is in the SVC region. Nasogastric tube passes below the diaphragm, with the tip not imaged. A substernal drain and left-sided chest tube are present. No pneumothorax is identified. The cardiac shadow and thoracic aorta are normal in caliber. No pleural effusions are visualized. Signed: Katie [place] Verified Date/Time: 03/03/2020 18:00:39 Reading Location: [address] Transitional Reading Room LACTIC ACID, [id number] 17:56:00 Test Item Value Reference Range Interpretation Comments LACTATE BLOOD 1.2 mmol/L 0.5-2.2 Specimen sligh tly ARTERIAL (2) (BEAKER) hemoly zed (test code = 2874) Manager Of International ID - ADMINPROTHROMBIN TIME/[id number] 17:50:00 Test Item Value Reference Range Interpretation Comments PROTIME (BEAKER) (test code = 17.5 seconds 11.9-14.2 H 759) INR (BEAKER) (test code = 370) 1.48 <=5.90 Effective 08/29/2018: PT Reference Range ChangeNew: 11.9-14.2 Previous: 11.7- 14.7RECOMMENDED COUMADIN/WARFARIN INR THERAPY RANGESSTANDARD DOSE: 2.0-3.0 Includes: PROPHYLAXIS for venous thrombosis, systemic embolization; TREATMENT for venous thrombosis and/or pulmonary embolus.HIGH RISK: Target INR is2.5-3.5 for patients wiht mechanical heart valves.[id number] 17:50:00 Test Item Value Reference Range Interpretation Comments FIBRINOGEN LEVEL (BEAKER) (test 233 mg/dl 225-434 code = 658) [id number] 17:50:00 Test Item Value Reference Range Interpretation Comments PARTIAL THROMBOPLASTIN TIME 28.3 seconds 22.5-36.0 (BEAKER) (test code = 760) CBC W/PLT COUNT & AUTO [id number] 17:47:00 Test Item Value Reference Range Interpretation Comments WHITE BLOOD CELL COUNT (BEAKER) 16.9 K/ L 3.5-10.5 H (test code = 775) RED BLOOD CELL COUNT (BEAKER) 3.97 M/ L 4.63-6.08 L (test code = 761) HEMOGLOBIN (BEAKER) (test code = 11.8 GM/DL 13.7-17.5 L 410) HEMATOCRIT (BEAKER) (test code = 36.2 % 40.1-51.0 L 411) MEAN CORPUSCULAR VOLUME (BEAKER) 91.2 fL 79.0-92.2 (test code = 753) MEAN CORPUSCULAR HEMOGLOBIN 29.7 pg 25.7-32.2 (BEAKER) (test code = 751) MEAN CORPUSCULAR HEMOGLOBIN CONC 32.6 GM/DL 32.3-36.5 (BEAKER) (test code = 752) RED CELL DISTRIBUTION WIDTH 12.2 % 11.6-14.4 (BEAKER) (test code = 412) PLATELET COUNT (BEAKER) (test 108 K/CU MM 150-450 L code = 756) MEAN PLATELET VOLUME (BEAKER) 11.8 fL 9.4-12.4 (test code = 754) NUCLEATED RED BLOOD CELLS 0 /100 WBC 0-0 (BEAKER) (test code = 413) NEUTROPHILS RELATIVE PERCENT 79 % (BEAKER) (test code = 429) LYMPHOCYTES RELATIVE PERCENT 13 % (BEAKER) (test code = 430) MONOCYTES RELATIVE PERCENT 6 % (BEAKER) (test code = 431) EOSINOPHILS RELATIVE PERCENT 1 % (BEAKER) (test code = 432) BASOPHILS RELATIVE PERCENT 0 % (BEAKER) (test code = 437) NEUTROPHILS ABSOLUTE COUNT 13.38 K/ L 1.78-5.38 H (BEAKER) (test code = 670) LYMPHOCYTES ABSOLUTE COUNT 2.26 K/ L 1.32-3.57 (BEAKER) (test code = 414) MONOCYTES ABSOLUTE COUNT (BEAKER) 0.93 K/ L 0.30-0.82 H (test code = 415) EOSINOPHILS ABSOLUTE COUNT 0.14 K/ L 0.04-0.54 (BEAKER) (test code = 416) BASOPHILS ABSOLUTE COUNT (BEAKER) 0.04 K/ L 0.01-0.08 (test code = 417) IMMATURE GRANULOCYTES-RELATIVE 1 % 0-1 PERCENT (BEAKER) (test code = 2801) POTASSIUM-STAT [id number] 17:34:00 Test Item Value Reference Range Interpretation Comments POTASSIUM (BEAKER) (test code = 4.7 meq/L 3.6-5.5 379) OXYGEN SATURATION, [id number] 17:34:00 Test Item Value Reference Range Interpretation Comments O2 SATURATION (MEASURED) (BEAKER) 69.3 % (test code = 1455) CALCIUM, [id number] 17:34:00 Test Item Value Reference Range Interpretation Comments CALCIUM IONIZED (BEAKER) (test 1.34 mmol/L 1.12-1.27 H code = 698) PH, BLOOD (BEAKER) (test code = 7.45 1810) BLOOD GAS, [id number] 17:34:00 Test Item Value Reference Range Interpretation Comments PH ARTERIAL (BEAKER) (test code = 7.45 7.35-7.45 383) PCO2 ARTERIAL (BEAKER) (test code 32 mm Hg 35-45 L = 384) PO2 ARTERIAL (BEAKER) (test code 226 mm Hg 80-90 H = 385) O2 SATURATION ARTERIAL (BEAKER) 99.5 % 96.0-97.0 H (test code = 386) HCO3 ARTERIAL (BEAKER) (test code 23 mmol/L 21-29 = 388) BASE EXCESS ARTERIAL (BEAKER) -1.3 mmol/L -2.0-3.0 (test code = 387) PATIENT TEMPERATURE (BEAKER) 35.4 (test code = 1818) FIO2 (BEAKER) (test code = 1819) 50.0 SODIUM NA-STAT [id number] 17:34:00 Test Item Value Reference Range Interpretation Comments SODIUM (BEAKER) (test code = 381) 133 meq/L 136-145 L GLUCOSE-STAT [id number] 17:34:00 Test Item Value Reference Range Interpretation Comments GLUCOSE RANDOM (BEAKER) (test code 137 mg/dL 70-110 H = 652) HGB/HCT (H&H) - STAT [id number] 17:34:00 Test Item Value Reference Range Interpretation Comments HEMOGLOBIN (BEAKER) (test code = 12.8 GM/DL 13.0-16.8 L 410) HEMATOCRIT (BEAKER) (test code = 38.0 % 40.0-50.0 L 411) [id number] 17:24:00 Test Item Value Reference Range Interpretation Comments ACTIVATED CLOTTING TIME 109 sec : 74 -137 seconds, (BEAKER) (test code = Baseli ne: TESTED AT 441) [facility] [address] [place] [address], [facility] 30: Manager Of International/Techni suma ID = [id number] for MASON TRAVIS [id number] 17:24:00 Test Item Value Reference Range Interpretation Comments ACTIVATED CLOTTING TIME 488 sec : 74 -137 seconds, (BEAKER) (test code = Baseli ne: TESTED AT 441) [address], [facility] 30: Manager Of International/Techni suma ID = [id number] for MASON TRAVIS [id number] 17:24:00 Test Item Value Reference Range Interpretation Comments ACTIVATED CLOTTING TIME 494 sec : 74 -137 seconds, (BEAKER) (test code = Baseli ne: TESTED AT 441) [address], [facility] 30: Manager Of International/Techni suma ID = [id number] for MAOSN TRAVIS [id number] 17:23:00 Test Item Value Reference Range Interpretation Comments ACTIVATED CLOTTING TIME 527 sec : 74 -137 seconds, (BEAKER) (test code = Baseli ne: TESTED AT 441) [address], [facility] 30: Manager Of International/Techni suma ID = [id number] for MASON TRAVIS PLATELET [id number] 17:14:00 Test Item Value Reference Range Interpretation Comments PLATELET COUNT (BEAKER) (test code 91 K/CU MM 150-450 L = 756) Manager Of International ID - [id number] ID - [id number] 16:59:00 Test Item Value Reference Range Interpretation Comments FIBRINOGEN LEVEL (BEAKER) (test 233 mg/dl 225-434 code = 658) HGB/HCT (H&H) - STAT [id number] 16:40:00 Test Item Value Reference Range Interpretation Comments HEMOGLOBIN (BEAKER) (test code = 10.7 GM/DL 13.0-16.8 L 410) HEMATOCRIT (BEAKER) (test code = 31.0 % 40.0-50.0 L 411) CALCIUM, [id number] 16:39:00 Test Item Value Reference Range Interpretation Comments CALCIUM IONIZED (BEAKER) (test 1.17 mmol/L 1.12-1.27 code = 698) PH, BLOOD (BEAKER) (test code = 7.36 1810) POTASSIUM-STAT [id number] 16:39:00 Test Item Value Reference Range Interpretation Comments POTASSIUM (BEAKER) (test code = 5.0 meq/L 3.6-5.5 379) BLOOD GAS, [id number] 16:39:00 Test Item Value Reference Range Interpretation Comments PH ARTERIAL (BEAKER) (test code = 7.36 7.35-7.45 383) PCO2 ARTERIAL (BEAKER) (test code 44 mm Hg 35-45 = 384) PO2 ARTERIAL (BEAKER) (test code 406 mm Hg 80-90 H = 385) O2 SATURATION ARTERIAL (BEAKER) 99.8 % 96.0-97.0 H (test code = 386) HCO3 ARTERIAL (BEAKER) (test code 25 mmol/L 21-29 = 388) BASE EXCESS ARTERIAL (BEAKER) -1.2 mmol/L -2.0-3.0 (test code = 387) PATIENT TEMPERATURE (BEAKER) 36.0 (test code = 1818) FIO2 (BEAKER) (test code = 1819) 100.0 SODIUM NA-STAT [id number] 16:39:00 Test Item Value Reference Range Interpretation Comments SODIUM (BEAKER) (test code = 381) 131 meq/L 136-145 L GLUCOSE-STAT [id number] 16:39:00 Test Item Value Reference Range Interpretation Comments GLUCOSE RANDOM (BEAKER) (test code 156 mg/dL 70-110 H = 652) BLOOD GAS, [id number] 16:10:00 Test Item Value Reference Range Interpretation Comments PH ARTERIAL (BEAKER) (test code = 7.42 7.35-7.45 383) PCO2 ARTERIAL (BEAKER) (test code 38 mm Hg 35-45 = 384) PO2 ARTERIAL (BEAKER) (test code 330 mm Hg 80-90 H = 385) O2 SATURATION ARTERIAL (BEAKER) 99.7 % 96.0-97.0 H (test code = 386) HCO3 ARTERIAL (BEAKER) (test code 24 mmol/L 21-29 = 388) BASE EXCESS ARTERIAL (BEAKER) -0.6 mmol/L -2.0-3.0 (test code = 387) PATIENT TEMPERATURE (BEAKER) 36.6 (test code = 1818) FIO2 (BEAKER) (test code = 1819) 70.0 SODIUM NA-STAT [id number] 16:10:00 Test Item Value Reference Range Interpretation Comments SODIUM (BEAKER) (test code = 381) 129 meq/L 136-145 L POTASSIUM-STAT [id number] 16:10:00 Test Item Value Reference Range Interpretation Comments POTASSIUM (BEAKER) (test code = 5.6 meq/L 3.6-5.5 H 379) GLUCOSE-STAT [id number] 16:10:00 Test Item Value Reference Range Interpretation Comments GLUCOSE RANDOM (BEAKER) (test code 174 mg/dL 70-110 H = 652) HGB/HCT (H&H) - STAT [id number] 16:10:00 Test Item Value Reference Range Interpretation Comments HEMOGLOBIN (BEAKER) (test code = 10.5 GM/DL 13.0-16.8 L 410) HEMATOCRIT (BEAKER) (test code = 31.0 % 40.0-50.0 L 411) POTASSIUM-STAT [id number] 15:42:00 Test Item Value Reference Range Interpretation Comments POTASSIUM (BEAKER) (test code = 4.5 meq/L 3.6-5.5 379) BLOOD GAS, [id number] 15:42:00 Test Item Value Reference Range Interpretation Comments PH ARTERIAL (BEAKER) (test code = 7.42 7.35-7.45 383) PCO2 ARTERIAL (BEAKER) (test code 37 mm Hg 35-45 = 384) PO2 ARTERIAL (BEAKER) (test code 310 mm Hg 80-90 H = 385) O2 SATURATION ARTERIAL (BEAKER) 99.7 % 96.0-97.0 H (test code = 386) HCO3 ARTERIAL (BEAKER) (test code 26 mmol/L 21-29 = 388) BASE EXCESS ARTERIAL (BEAKER) -0.8 mmol/L -2.0-3.0 (test code = 387) PATIENT TEMPERATURE (BEAKER) 28.5 (test code = 1818) FIO2 (BEAKER) (test code = 1819) 60.0 SODIUM NA-STAT [id number] 15:42:00 Test Item Value Reference Range Interpretation Comments SODIUM (BEAKER) (test code = 381) 130 meq/L 136-145 L GLUCOSE-STAT [id number] 15:42:00 Test Item Value Reference Range Interpretation Comments GLUCOSE RANDOM (BEAKER) (test code 168 mg/dL 70-110 H = 652) HGB/HCT (H&H) - STAT [id number] 15:42:00 Test Item Value Reference Range Interpretation Comments HEMOGLOBIN (BEAKER) (test code = 10.7 GM/DL 13.0-16.8 L 410) HEMATOCRIT (BEAKER) (test code = 31.0 % 40.0-50.0 L 411) BLOOD GAS, [id number] 15:29:00 Test Item Value Reference Range Interpretation Comments PH ARTERIAL (BEAKER) (test code = 7.33 7.35-7.45 L 383) PCO2 ARTERIAL (BEAKER) (test code 41 mm Hg 35-45 = 384) PO2 ARTERIAL (BEAKER) (test code 424 mm Hg 80-90 H = 385) O2 SATURATION ARTERIAL (BEAKER) 99.8 % 96.0-97.0 H (test code = 386) HCO3 ARTERIAL (BEAKER) (test code 22 mmol/L 21-29 = 388) BASE EXCESS ARTERIAL (BEAKER) -4.8 mmol/L -2.0-3.0 L (test code = 387) PATIENT TEMPERATURE (BEAKER) 35.0 (test code = 1818) FIO2 (BEAKER) (test code = 1819) 80.0 SODIUM NA-STAT [id number] 15:29:00 Test Item Value Reference Range Interpretation Comments SODIUM (BEAKER) (test code = 381) 125 meq/L 136-145 L HGB/HCT (H&H) - STAT [id number] 15:29:00 Test Item Value Reference Range Interpretation Comments HEMOGLOBIN (BEAKER) (test code = 9.8 GM/DL 13.0-16.8 L 410) HEMATOCRIT (BEAKER) (test code = 29.0 % 40.0-50.0 L 411) GLUCOSE-STAT [id number] 15:27:00 Test Item Value Reference Range Interpretation Comments GLUCOSE RANDOM (BEAKER) (test code = 91 mg/dL 70-110 652) POTASSIUM-STAT [id number] 15:27:00 Test Item Value Reference Range Interpretation Comments POTASSIUM (BEAKER) (test code = 3.9 meq/L 3.6-5.5 379) BLOOD GAS, [id number] 14:51:00 Test Item Value Reference Range Interpretation Comments PH ARTERIAL (BEAKER) (test code = 7.44 7.35-7.45 383) PCO2 ARTERIAL (BEAKER) (test code 36 mm Hg 35-45 = 384) PO2 ARTERIAL (BEAKER) (test code 479 mm Hg 80-90 H = 385) O2 SATURATION ARTERIAL (BEAKER) 99.9 % 96.0-97.0 H (test code = 386) HCO3 ARTERIAL (BEAKER) (test code 24 mmol/L 21-29 = 388) BASE EXCESS ARTERIAL (BEAKER) -0.2 mmol/L -2.0-3.0 (test code = 387) PATIENT TEMPERATURE (BEAKER) 36.0 (test code = 1818) FIO2 (BEAKER) (test code = 1819) 100.0 CALCIUM, [id number] 14:51:00 Test Item Value Reference Range Interpretation Comments CALCIUM IONIZED (BEAKER) (test 1.11 mmol/L 1.12-1.27 L code = 698) PH, BLOOD (BEAKER) (test code = 7.43 1810) GLUCOSE-STAT [id number] 14:50:00 Test Item Value Reference Range Interpretation Comments GLUCOSE RANDOM (BEAKER) (test code 108 mg/dL 70-110 = 652) SODIUM NA-STAT [id number] 14:50:00 Test Item Value Reference Range Interpretation Comments SODIUM (BEAKER) (test code = 381) 137 meq/L 136-145 POTASSIUM-STAT [id number] 14:50:00 Test Item Value Reference Range Interpretation Comments POTASSIUM (BEAKER) (test code = 3.6 meq/L 3.6-5.5 379) HGB/HCT (H&H) - STAT [id number] 14:50:00 Test Item Value Reference Range Interpretation Comments HEMOGLOBIN (BEAKER) (test code = 14.6 GM/DL 13.0-16.8 410) HEMATOCRIT (BEAKER) (test code = 43.0 % 40.0-50.0 411) COMPREHENSIVE METABOLIC [id number] 14:15:00 Test Item Value Reference Range Interpretation Comments TOTAL PROTEIN 6.7 gm/dL 6.0-8.3 (BEAKER) (test code = 770) ALBUMIN (BEAKER) 4.0 g/dL 3.5-5.0 (test code = 1145) ALKALINE PHOSPHATASE 77 U/L 40-150 (BEAKER) (test code = 346) BILIRUBIN TOTAL 0.6 mg/dL 0.2-1.2 (BEAKER) (test code = 377) SODIUM (BEAKER) (test 137 meq/L 136-145 code = 381) POTASSIUM (BEAKER) 4.3 meq/L 3.5-5.1 (test code = 379) CHLORIDE (BEAKER) 103 meq/L 98-107 (test code = 382) CO2 (BEAKER) (test 30 meq/L 22-29 H code = 355) BLOOD UREA NITROGEN 12 mg/dL 7-21 (BEAKER) (test code = 354) CREATININE (BEAKER) 0.85 mg/dL 0.57-1.25 (test code = 358) GLUCOSE RANDOM 89 mg/dL 70-105 (BEAKER) (test code = 652) CALCIUM (BEAKER) 8.9 mg/dL 8.4-10.2 (test code = 697) AST (SGOT) (BEAKER) 16 U/L 5-34 (test code = 353) ALT (SGPT) (BEAKER) 8 U/L 6-55 (test code = 347) EGFR (BEAKER) (test 86 mL/min/1.73 ESTIMA LULU GFR IS code = 1092) sq m NOT ACCURATE CREATININE CLEARANCE IN PREDICTING GLOMERULAR FILTRATION RATE . ESTIMATED GFR I S NOT APPLICABLE FOR DIALYSIS PATIEN TS. Manager Of International ID - ROSIANGCBC W/PLT COUNT & AUTO [id number] 14:12:00 Test Item Value Reference Range Interpretation Comments WHITE BLOOD CELL COUNT (BEAKER) 7.1 K/ L 3.5-10.5 (test code = 775) RED BLOOD CELL COUNT (BEAKER) 4.82 M/ L 4.63-6.08 (test code = 761) HEMOGLOBIN (BEAKER) (test code = 14.7 GM/DL 13.7-17.5 410) HEMATOCRIT (BEAKER) (test code = 44.5 % 40.1-51.0 411) MEAN CORPUSCULAR VOLUME (BEAKER) 92.3 fL 79.0-92.2 H (test code = 753) MEAN CORPUSCULAR HEMOGLOBIN 30.5 pg 25.7-32.2 (BEAKER) (test code = 751) MEAN CORPUSCULAR HEMOGLOBIN CONC 33.0 GM/DL 32.3-36.5 (BEAKER) (test code = 752) RED CELL DISTRIBUTION WIDTH 12.2 % 11.6-14.4 (BEAKER) (test code = 412) PLATELET COUNT (BEAKER) (test 155 K/CU MM 150-450 code = 756) MEAN PLATELET VOLUME (BEAKER) 12.0 fL 9.4-12.4 (test code = 754) NUCLEATED RED BLOOD CELLS 0 /100 WBC 0-0 (BEAKER) (test code = 413) NEUTROPHILS RELATIVE PERCENT 52 % (BEAKER) (test code = 429) LYMPHOCYTES RELATIVE PERCENT 39 % (BEAKER) (test code = 430) MONOCYTES RELATIVE PERCENT 7 % (BEAKER) (test code = 431) EOSINOPHILS RELATIVE PERCENT 2 % (BEAKER) (test code = 432) BASOPHILS RELATIVE PERCENT 1 % (BEAKER) (test code = 437) NEUTROPHILS ABSOLUTE COUNT 3.67 K/ L 1.78-5.38 (BEAKER) (test code = 670) LYMPHOCYTES ABSOLUTE COUNT 2.72 K/ L 1.32-3.57 (BEAKER) (test code = 414) MONOCYTES ABSOLUTE COUNT (BEAKER) 0.49 K/ L 0.30-0.82 (test code = 415) EOSINOPHILS ABSOLUTE COUNT 0.12 K/ L 0.04-0.54 (BEAKER) (test code = 416) BASOPHILS ABSOLUTE COUNT (BEAKER) 0.05 K/ L 0.01-0.08 (test code = 417) IMMATURE GRANULOCYTES-RELATIVE 0 % 0-1 PERCENT (BEAKER) (test code = 2801) PROTHROMBIN TIME/[id number] 14:09:00 Test Item Value Reference Range Interpretation Comments PROTIME (BEAKER) (test code = 13.1 seconds 11.9-14.2 759) INR (BEAKER) (test code = 370) 1.02 <=5.90 Effective 08/29/2018: PT Reference Range ChangeNew: 11.9-14.2 Previous: 11.7- 14.7RECOMMENDED COUMADIN/WARFARIN INR THERAPY RANGESSTANDARD DOSE: 2.0-3.0 Includes: PROPHYLAXIS for venous thrombosis, systemic embolization; TREATMENT for venous thrombosis and/or pulmonary embolus.HIGH RISK: Target INR is2.5-3.5 for patients wiht mechanical heart valves.
[2021-06-14 19:08] LABS: Absolute Lymphocytes (CBC) 2.4 K/uL (0.7-4.9); Hematocrit 44.9 % (39.6-49.0); Lymphocytes % 42.7 % (15.3-44.8); MPV 10.8 fL (7.6-11.3); RBC Red Blood Cell Count 5.06 M/uL (4.33-5.43)
[2021-06-14] MEDS ORDERED: METHYLPREDNISOLONE 125 MG INJ ONE (19:11)
[2021-06-14] MEDS ORDERED: ALBUTEROL 2.5 MG/3 ML NEB SOL ONE (19:12)
[2021-06-14 19:13] LABS: Protime INR 1.09
[2021-06-14] MEDS ORDERED: Levofloxacin500mg IV 500 MG/100 ML BAG IV ONE (19:25)
[2021-06-14 19:56] LABS: Albumin 3.9 g/dL (3.4-5.0); Bilirubin Direct 0.2 mg/dL (0-0.2); Bilirubin Total 0.6 mg/dL (0.2-1.0); C-Reactive Protein 15.2 mg/L (<3.00); Ferritin 276.3 ng/mL (26-388); Potassium 4.4 mmol/L (3.5-5.1); Protein, Total 7.6 g/dL (6.4-8.2)
--- NOTE | 2021-06-14 20:26 | RAD REPORT ---
EXAM DESCRIPTION: Emi Single View06/14/2021 8:03 pm CLINICAL HISTORY: sob COMPARISON: 2020 FINDINGS: The lungs are hyperaerated The lungs appear clear of acute infiltrate. The heart is normal size. Postsurgical changes involve the chest. IMPRESSION: No acute abnormalities displayed
[2021-06-14] MEDS ORDERED: NA CHLORIDE 0.9% 500 ML ONE (20:51)
--- NOTE | 2021-06-14 21:06 | RAD REPORT ---
EXAM DESCRIPTION: CT - Chest For Pe Angio - 06/14/2021 8:47 pm CLINICAL HISTORY: sob COMPARISON: None. TECHNIQUE: Dynamically enhanced axial 3 mm thick images of the chest were obtained during administra tion of <100> mL Isovue 370 IV contrast. Coronal and oblique reconstruction images were generated and reviewed. Exam utilizes a protocol for optimal evaluation of pulmonary arterial tree. Maximum intensity projections 3D imaging was utilized All CT scans are performed using dose optimization technique as appropriate and may include automated exposure control or mA/KV adjustment according to patient size. FINDINGS: A pulmonary embolus is not seen. A thoracic aortic aneurysm is not noted. A pleural effusion is not seen. A pericardial effusion is not seen. A lung consolidation is not present. Moderate COPD IMPRESSION: Negative for a pulmonary embolism.
[2021-06-14 21:16] LABS: SARS-COV-2 RT PCR NEGATIVE (NEGATIVE)
--- NOTE | 2021-06-14 21:42 | EDPHYS ---
Physician Documentation [facility] Name: Jacques Brown Age: 86 yrs Sex: Male : 1935 Arrival Date: 06/14/2021 Time: 18:38 Bed 8 Private MD: Jose Medina V ED Physician Raji Martinez HPI: 06/14 20:22 This 86 yrs old Male presents to ER via Wheelchair with complaints of Shortness Of jr8 Breath. 20:22 The patient has shortness of breath at rest. Onset: The symptoms/episode began/occurred jr8 acutely, today. Duration: The symptoms are continuous. The patient's shortness of breath is aggravated by exertion. Associated signs and symptoms: Pertinent positives: non-productive cough. Severity of symptoms: At their worst the symptoms were moderate in the emergency department the symptoms are unchanged. It is unknown whether or not the patient has had similar symptoms in the past. The patient has been recently seen by a physician:. Patient stated that he was feeling bad since this past Monday. Stated that he had cough and congestion. Was tested for covid which was negative. Had increased shortness of breath today. EMS arrived and found patient to be hypoxic in the low 80s . Historical: - Allergies: 18:52 No Known Allergies; ap3 - Home Meds: 19:49 metoprolol tartrate 25 mg Oral tab 1 tab 2 times per day [Active]; duloxetine 30 mg sm5 oral CDRS 1 cap once daily [Active]; Lasix 20 mg Oral tab 1 tab once daily [Active]; aspirin 81 mg Oral tab daily [Active]; pregabalin 50 mg Oral cap daily [Active]; - Immunization history:: Client reports receiving the 2nd dose of the Covid vaccine, and booster. - Social history:: Smoking status: Patient reports use of chewing tobacco. ROS: 20:24 Eyes: Negative for injury, pain, redness, and discharge, ENT: Negative for injury, jr8 pain, and discharge, Neck: Negative for injury, pain, and swelling, Cardiovascular: Negative for chest pain, palpitations, and edema, Abdomen/GI: Negative for abdominal pain, nausea, vomiting, diarrhea, and constipation, Back: Negative for injury and pain, MS/Extremity: Negative for injury and deformity, Skin: Negative for injury, rash, and discoloration, Neuro: Negative for headache, weakness, numbness, tingling, and seizure. 20:24 Respiratory: Positive for cough, dyspnea on exertion, shortness of breath. Exam: 20:24 Constitutional: This is a well developed, well nourished patient who is awake, alert, jr8 and in no acute distress. ENT: Nares patent. No nasal discharge, no septal abnormalities noted. Tympanic membranes are normal and external auditory canals are clear. Oropharynx with no redness, swelling, or masses, exudates, or evidence of obstruction, uvula midline. Mucous membranes moist. Neck: Trachea midline, no thyromegaly or masses palpated, and no cervical lymphadenopathy. Supple, full range of motion without nuchal rigidity, or vertebral point tenderness. No Meningismus. Cardiovascular: Regular rate and rhythm with a normal S1 and S2. No gallops, murmurs, or rubs. Normal PMI, no JVD. No pulse deficits. Abdomen/GI: Soft, non-tender, with normal bowel sounds. No distension or tympany. No guarding or rebound. No evidence of tenderness throughout. Back: No spinal tenderness. No costovertebral tenderness. Full range of motion. Skin: Warm, dry with normal turgor. Normal color with no rashes, no lesions, and no evidence of cellulitis. MS/ Extremity: Pulses equal, no cyanosis. Neurovascular intact. Full, normal range of motion. Neuro: Awake and alert, GCS 15, oriented to person, place, time, and situation. Cranial nerves II-XII grossly intact. Motor strength 5/5 in all extremities. Sensory grossly intact. 20:24 Respiratory: mild respiratory distress is noted, Respirations: tachypnea, that is mild, Breath sounds: wheezing: expiratory that is mild, is heard diffusely. Vital Signs: 18:38 BP 179 / 91; Pulse 95; Resp 29; Temp 98.9; Pulse Ox 91% on R/A; Weight 68.49 kg; Height ap3 5 ft. 11 in. (180.34 cm); 19:00 BP 149 / 86; Pulse 88; Resp 23; Pulse Ox 100% on 15% Non-rebreather mask; sm5 20:00 BP 146 / 77; Pulse 92; Resp 22; Pulse Ox 100% on 15% Non-rebreather mask; sm5 21:00 BP 137 / 73; Pulse 92; Resp 22; Pulse Ox 100% on 5 lpm NC; sm5 22:00 BP 145 / 86; Pulse 88; Resp 20; Pulse Ox 100% on 2 lpm NC; sm5 18:38 Body Mass Index 21.06 (68.49 kg, 180.34 cm) ap3 MDM: 18:48 Patient medically screened. [facility] 21:39 Data reviewed: vital signs, nurses notes, lab test result(s), EKG, radiologic studies, [facility] CT scan, plain films. Data interpreted: Pulse oximetry: on room air is 80 %. Interpretation: hypoxia. Counseling: I had a detailed discussion with the patient and/or guardian regarding: the historical points, exam findings, and any diagnostic results supporting the discharge/admit diagnosis, lab results, radiology results, the need for further work-up and treatment in the hospital. Physician consultation: Jose Medina MD was called at 21:40, was contacted at 21:40, regarding admission, to the telemetry unit. and will see patient. 06/14 18:50 Order name: BMP [facility] 06/14 18:50 Order name: Blood Culture Adult (2) [facility] 06/14 18:50 Order name: C-Reactive Protein; Complete Time: 20:00 [facility] 06/14 18:50 Order name: CBC with Diff; Complete Time: 19:15 [facility] 06/14 18:50 Order name: Ferritin; Complete Time: 20:00 [facility] 06/14 18:50 Order name: LFT's; Complete Time: 20: [facility] 06/14 18:50 Order name: Lactate; Complete Time: 20:00 [facility] 06/14 18:50 Order name: PT-INR; Complete Time: 19:15 [facility] 06/14 18:50 Order name: Procalcitonin; Complete Time: 20:00 [facility] 06/14 18:50 Order name: Ptt, Activated; Complete Time: 19:15 [facility] 06/14 18:50 Order name: Troponin HS; Complete Time: 20:00 06/14 18:51 Order name: Basic Metabolic Panel; Complete Time: 20:00 EDMS 06/14 18:52 Order name: COVID-19/FLU A+B (Document "Date of Onset" if Symptomatic); Complete Time: [facility] 06/14 20:26 Order name: BNP 06/14 18:50 Order name: CXR XRAY; Complete Time: 20:28 06/14 18:50 Order name: EKG; Complete Time: 18:51 06/14 18:50 Order name: Cardiac monitoring; Complete Time: 19:06/14 18:50 Order name: Droplet/Contact Precautions; Complete Time: 19: 06/14 18:50 Order name: EKG - Nurse/Tech; Complete Time: 19:06/14 18:50 Order name: IV Start; Complete Time: 19:06/14 18:50 Order name: Labs collected and sent; Complete Time: 19: 06/14 20:26 Order name: NT PRO-BNP; Complete Time: 21:04 EDMS 06/14 20:28 Order name: CT Chest For PE Angio; Complete Time: 21:22 06/14 22:08 Order name: Urine Dipstick-Ancillary; Complete Time: 22:37 EDMS 06/14 22:17 Order name: Lactate Sepsis 2 HR Follow-up; Complete Time: 22:37 EDMS 06/14 18:50 Order name: O2 Per Protocol; Complete Time: :06/14 18:50 Order name: O2 Sat Monitoring; Complete Time: : Administered Medications: 19:19 Drug: Albuterol 2.5 mg Route: Inhalation; ke1 19:19 Drug: SOLU-Medrol (methylPrednisoLONE) 125 mg Route: IVP; Site: right antecubital; ke1 23:51 Follow up: Response: No adverse reaction ke1 19:32 Drug: LevaQUIN (levofloxacin) 500 mg Volume: 100 ml; Route: IVPB; Infused Over: 60 ke1 mins; Site: right antecubital; 23:51 Follow up: IV Status: Completed infusion ke1 21:05 Drug: NS 0.9% 500 ml Route: IV; Rate: bolus; Site: right antecubital; sm5 23:51 Follow up: IV Status: Completed infusion ke1 21:59 Drug: Tamiflu (oseltamivir) 75 mg Route: PO; ke1 23:50 Follow up: Response: No adverse reaction ke1 Disposition Summary: 06/14/21 21:41 Hospitalization Ordered Hospitalization Status: Inpatient Admission jr8 Provider: Jose Meidna jr8 [facility] jr8 Condition: Stable jr8 Problem: new jr8 Symptoms: have improved jr8 Bed/Room Type: Standard 8 Room Assignment: 225(06/14/21 22:21) mw Diagnosis - Acute respiratory failure with hypoxia jr8 - Influenza due to identified novel influenza A virus jr8 Forms: - Medication Reconciliation Form jr8 - SBAR form jr8 Signatures: Dispatcher [employer] EDMS Marimar Wiggins RN RN mw Keyshawn Anaya PA PA jr8 Sharron Durand RN RN ap3 Shara Frye RN RN sm5 Juanito Rios RN RN ke1 Corrections: (The following items were deleted from the chart) 22:21 21:41 jr8
--- NOTE | 2021-06-14 21:42 | ER ---
Nurse's Notes [facility] Name: Jacques Brown Age: 86 yrs Sex: Male : 1935 Arrival Date: 06/14/2021 Time: 18:38 Bed 8 Private MD: Jose Medina V Diagnosis: Acute respiratory failure with hypoxia;Influenza due to identified novel influenza A virus Presentation: 06/14 18:38 Initial Sepsis Screen: Does the patient meet any 2 criteria? RR > 20 per min. No. ap3 Patient's initial sepsis screen is negative. Does the patient have a suspected source of infection? No. Patient's initial sepsis screen is negative. 18:50 Chief complaint: Patient states: he started having shortness of breath Monday ap3 06/11/2021. Patient comes into the ED today for worsening of symptoms. Coronavirus screen: Client presents with at least one sign or symptom that may indicate coronavirus-19. Ebola Screen: No symptoms or risks identified at this time. 18:50 Method Of Arrival: Wheelchair ap3 18:52 Risk Assessment: Do you want to hurt yourself or someone else? Patient reports no ap3 desire to harm self or others. Onset of symptoms was June 11, 2021. 18:52 Acuity: FRAN 2 ap3 Triage Assessment: 18:38 Respiratory: Reports shortness of breath Airway is patent Respiratory effort is even, ap3 labored, Respiratory pattern is regular, tachypnea patient appears blue in color around the lips Breath sounds are diminished Breath sounds with wheezes Onset: The symptoms/episode began/occurred gradually, the patient has severe shortness of breath. 18:52 General: Appears distressed, Behavior is calm. Pain: Denies pain. Neuro: Level of ap3 Consciousness is awake, alert, obeys commands, Oriented to person, place, time, situation, Speech is normal. Cardiovascular: Patient's skin is warm and dry. Historical: - Allergies: 18:52 No Known Allergies; ap3 - Home Meds: 19:49 metoprolol tartrate 25 mg Oral tab 1 tab 2 times per day [Active]; duloxetine 30 mg sm5 oral CDRS 1 cap once daily [Active]; Lasix 20 mg Oral tab 1 tab once daily [Active]; aspirin 81 mg Oral tab daily [Active]; pregabalin 50 mg Oral cap daily [Active]; - Immunization history:: Client reports receiving the 2nd dose of the Covid vaccine, and booster. - Social history:: Smoking status: Patient reports use of chewing tobacco. Screenin:54 Abuse screen: Denies threats or abuse. Nutritional screening: No deficits noted. ap3 Tuberculosis screening: No symptoms or risk factors identified. 19:30 Fall Risk No fall in past 12 months (0 pts). No secondary diagnosis (0 pts). IV access ke1 (20 points). Ambulatory Aid- None/Bed Rest/Nurse Assist (0 pts). Gait- Normal/Bed Rest/Wheelchair (0 pts) Mental Status- Oriented to own ability (0 pts). Total Wolfe Fall Scale indicates No Risk (0-24 pts). Assessment: 18:59 General: Appears in no apparent distress. uncomfortable, Behavior is calm, cooperative, ab2 appropriate for age. Pain: Denies pain. Neuro: Level of Consciousness is awake, alert, obeys commands, Oriented to person, place, time, situation, Appropriate for age Sales Service Promoter are equal bilaterally Moves all extremities. Gait is steady, Speech is normal. Cardiovascular: No deficits noted. Denies chest pain, shortness of breath, Heart tones S1 S2 present Patient's skin is warm and dry. Rhythm is sinus rhythm. Respiratory: Airway is patent Respiratory effort is labored, Respiratory pattern is symmetrical, Breath sounds are diminished bilaterally. GI: No deficits noted. No signs and/or symptoms were reported involving the gastrointestinal system. : No deficits noted. No signs and/or symptoms were reported regarding the genitourinary system. EENT: No deficits noted. No signs and/or symptoms were reported regarding the EENT system. Derm: No deficits noted. No signs and/or symptoms reported regarding the dermatologic system. Skin is intact, is healthy with good turgor, Skin is pink, warm \\T\\ dry. Musculoskeletal: No deficits noted. No signs and/or symptoms reported regarding the musculoskeletal system. 21:05 Reassessment: pt taken off of nonrebreather and placed on 5L nasal cannula. 5 21:45 Reassessment: O2 decreased to 2 L. ke1 22:25 Reassessment: attempted to call report to floor, nurse unavailable. 5 22:30 Reassessment: Patient at 100 % at 2 L per NC, NC removed, will continue to monitor. ke1 22:31 Respiratory: Respiratory effort is even, unlabored, Respiratory pattern is regular, ke1 symmetrical. Vital Signs: 18:38 BP 179 / 91; Pulse 95; Resp 29; Temp 98.9; Pulse Ox 91% on R/A; Weight 68.49 kg; Height ap3 5 ft. 11 in. (180.34 cm); 19:00 BP 149 / 86; Pulse 88; Resp 23; Pulse Ox 100% on 15% Non-rebreather mask; sm5 20:00 BP 146 / 77; Pulse 92; Resp 22; Pulse Ox 100% on 15% Non-rebreather mask; sm5 21:00 BP 137 / 73; Pulse 92; Resp 22; Pulse Ox 100% on 5 lpm NC; sm5 22:00 BP 145 / 86; Pulse 88; Resp 20; Pulse Ox 100% on 2 lpm NC; sm5 18:38 Body Mass Index 21.06 (68.49 kg, 180.34 cm) ap3 ED Course: 18:38 Patient arrived in ED. as 18:38 Jose Medina MD is Private Physician. as 18:43 Akhil Reyes PA is PHCP. cp 18:43 Raji Martinez MD is Attending Physician. cp 18:44 Raji Martinez MD is Attending Physician. cp 18:48 Keyshawn Anaya PA is PHCP. jr8 18:52 Triage completed. ap3 18:54 Arm band placed on right wrist. ap3 18:59 Bryon Colvin is Primary Nurse. ab2 19:00 No provider procedures requiring assistance completed. Inserted saline lock: 18 gauge ab2 in right antecubital area, using aseptic technique. Blood collected. 19:01 BMP Sent. ab2 19:02 Blood Culture Adult (2) Sent. ab2 19:02 C-Reactive Protein Sent. ab2 19:02 CBC with Diff Sent. ab2 19:02 Ferritin Sent. ab2 19:02 LFT's Sent. ab2 19:02 Lactate Sent. ab2 19:02 PT-INR Sent. ab2 19:02 Procalcitonin Sent. ab2 19:02 Ptt, Activated Sent. ab2 19:02 Troponin HS Sent. ab2 19:03 Juanito Rios, BINH is Primary Nurse. ke1 19:03 Patient has correct armband on for positive identification. Bed in low position. Call ab2 light in reach. Side rails up X2. Adult w/ patient. 19:03 Basic Metabolic Panel Sent. ab2 19:05 COVID-19/FLU A+B (Document "Date of Onset" if Symptomatic) Sent. ab2 20:08 CXR XRAY In Process Unspecified. EDMS 20:47 CT Chest For PE Angio In Process Unspecified. EDMS 21:40 Jose Medina MD is Hospitalizing Provider. jr8 Administered Medications: 19:19 Drug: Albuterol 2.5 mg Route: Inhalation; ke1 19:19 Drug: SOLU-Medrol (methylPrednisoLONE) 125 mg Route: IVP; Site: right antecubital; ke1 23:51 Follow up: Response: No adverse reaction ke1 19:32 Drug: LevaQUIN (levofloxacin) 500 mg Volume: 100 ml; Route: IVPB; Infused Over: 60 ke1 mins; Site: right antecubital; 23:51 Follow up: IV Status: Completed infusion ke1 21:05 Drug: NS 0.9% 500 ml Route: IV; Rate: bolus; Site: right antecubital; sm5 23:51 Follow up: IV Status: Completed infusion ke1 21:59 Drug: Tamiflu (oseltamivir) 75 mg Route: PO; ke1 23:50 Follow up: Response: No adverse reaction ke1 Outcome: 21:41 Decision to Hospitalize by Provider. jr8 23:50 Admitted to Med/surg accompanied by tech. ke1 23:50 Condition: good 23:50 Instructed on the need for admit. 23:52 Patient left the ED. ke1 Signatures: Dispatcher [employer] EDMS Preethi Calero Josh, PA PA jr8 Akhil Reyes PA PA cp Prokisch, Amanda RN RN ap3 Shara Frye RN RN 5 Bryon Colvin Juanito Rios RN RN ke1 Corrections: (The following items were deleted from the chart) 22:32 22:30 Reassessment: Patient at 100 % at 2 L per NC, NC removed ke1 ke1
[2021-06-14] MEDS ORDERED: OSELTAMIVIR 75 MG CAP ONE (21:51)
[2021-06-14 22:07] LABS: Urine Blood Negative (Negative); Urine Glucose Negative (Negative); Urine Protein Negative (Negative); Urine Specific Gravity 1.015 (1.005-1.030); Urine pH 5.5 (5.0-7.0)
[2021-06-15] MEDS ORDERED: ONDANSETRON 4 MG/2 ML VIAL IV PRN (00:01)
[2021-06-15] MEDS ORDERED: ACETAMINOPHEN 500 MG TAB PO PRN (00:01)
[2021-06-15] MEDS ORDERED: ALBUTEROL 2.5 MG/3 ML NEB SOL NEB PRN (00:01)
[2021-06-15 00:23] VITALS: BMI 21.0
[2021-06-15] MEDS: METHYLPREDNISOLONE 40 MG INJ IV SCH ×3 (00:44→16:40)
[2021-06-15 04:46] LABS: Absolute Lymphocytes (CBC) 0.4 K/uL (0.7-4.9); Lymphocytes % 19.7 % (15.3-44.8); MPV 10.8 fL (7.6-11.3); RBC Red Blood Cell Count 4.51 M/uL (4.33-5.43)
[2021-06-15 04:53] LABS: Potassium 4.3 mmol/L (3.5-5.1)
[2021-06-15] MEDS: IPRATROPIUM BROM 0.5MG/2.5ML NEB PRN ×2 (05:06→13:56)
[2021-06-15 05:22] LABS: Blood Morphology Comment NOTED (NOT SEEN); Burr Cells 2+; Platelet Estimate DECR; White Blood Cell Scan OK (OK)
[2021-06-15] MEDS ORDERED: cloNIDine HCL 0.1 MG TAB PO PRN (05:39)
[2021-06-15] MEDS ORDERED: PNEUMOCOCCAL VACCINE 0.5 ML IMVAC ONE (08:00)
--- NOTE | 2021-06-15 08:26 | P.SSS ---
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 HIS PULSE OX WAS DOWN TO 70% ON RA LAST NIGHT, AND THIS AM IS UP TO95% ON 1 LT NC. HE IS ALSO FLU POS BUT COVID NEG AND CT SHOWS NO PNEUMONIA OR EMBOLISM. Allergies No Known Allergies Allergy (Unverified 02/26/20 11:05) Home Medications: Aspirin [Aspirin EC 81 MG] 81 mg PO DAILY 06/15/21 Duloxetine HCl [Cymbalta] 30 mg PO DAILY 06/15/21 Furosemide [Lasix] 20 mg PO DAILY 06/15/21 Metoprolol Tartrate 25 mg PO BID 06/15/21 - Past Medical/Surgical History Has patient received pneumonia vaccine in the past: No Diabetic: No -: A fib -: CABG - Social History Smoking Status: Former smoker Place of Residence: Home Review of Systems 10-point ROS is otherwise unremarkable General: Weakness Respiratory: Shortness of Breath Physical Examination - Vital Signs Temperature: 98.1 F Blood Pressure: 157/79 Pulse: 97 Respirations: 17 Pulse Ox (%): 97 - Physical Exam General: Oriented x3, Mild distress HEENT: Atraumatic, PERRLA, Mucous membr. moist/pink, EOMI, Sclerae nonicteric Neck: Supple, 2+ carotid pulse no bruit, No LAD, Without JVD or thyroid abnormality Respiratory: Clear to auscultation bilaterally, Normal air movement Cardiovascular: Regular rate/rhythm, Normal S1 S2 Gastrointestinal: Normal bowel sounds, No tenderness Musculoskeletal: No tenderness Integumentary: No rashes Neurological: Normal gait, Normal speech, Normal strength at 5/5 x4 extr, Normal tone, Normal affect Lymphatics: No axilla or inguinal lymphadenopathy - Studies Laboratory Data (last 24 hrs) 06/14/21 18:50: PT 12.0, INR 1.09, APTT 34.1 06/14/21 18:50: WBC 5.60, Hgb 15.0, Hct 44.9, Plt Count 130 L 06/14/21 18:50: Sodium 133 L, Potassium 4.4, BUN 23 H, Creatinine 1.35 H, Glucose 121 H, Total Bilirubin 0.6, AST 48 H, ALT 38, Alkaline Phosphatase 130 H - Diagnosis (Problem(s)) (1) COPD (chronic obstructive pulmonary disease) Current Visit: Yes Status: Acute Plan: IV STEROIDS NEBS TAMILFLU BID. HE HAS IMPROVED WELL. HE WANTS TO GO HOME. I WILL WAIT UNTIL ABOUT 3 PM, LET HIM AMBULATE AND DECIDE. DOES NOT WANT HIM TO COME HOME. (2) Influenza Current Visit: Yes Status: Acute (3) Bicytopenia Current Visit: Yes Status: Acute Plan: REDO CBC VIRAL INFECTION CAN GIVE RISE TO THIS. HEMATOLOGY CONSULTED. MOST LIKELY WILL IMPROVE ON ITS OWN. - Disposition Disposition: ROUTINE DISCHARGE
[2021-06-15] MEDS: DULOXETINE 30 MG CAP PO SCH (08:56)
[2021-06-15] MEDS: METOPROLOL TAR 25 MG TAB PO SCH ×2 (08:56→21:51)
[2021-06-15] MEDS: OSELTAMIVIR PHOSPHATE 30 MG/5 ML SUSPENSION UD PO SCH ×2 (08:57→21:51)
[2021-06-15 09:00] LABS: Absolute Lymphocytes (CBC) 0.3 K/uL (0.7-4.9); MPV 10.3 fL (7.6-11.3); RBC Red Blood Cell Count 4.67 M/uL (4.33-5.43)
[2021-06-15] MEDS ORDERED: OSELTAMIVIR 75 MG CAP PO ONE (09:00)
[2021-06-15] MEDS ORDERED: ASPIRIN EC 81 MG TAB PO SCH (09:00)
[2021-06-15 09:40] LABS: Thyroid Stimulating Hormone 1.73 uIU/mL (0.360-3.740)
[2021-06-15 09:50] LABS: Blood Morphology Comment NOT SEEN (NOT SEEN); Platelet Estimate DECR; White Blood Cell Scan OK (OK)
[2021-06-16 01:05] VITALS: O2SAT 94
[2021-06-16] MEDS: METHYLPREDNISOLONE 40 MG INJ IV SCH ×2 (01:08→08:59)
[2021-06-16 05:59] LABS: Absolute Lymphocytes (CBC) 1.1 K/uL (0.7-4.9); Lymphocytes % 18.1 % (15.3-44.8); MPV 10.3 fL (7.6-11.3); RBC Red Blood Cell Count 4.98 M/uL (4.33-5.43)
[2021-06-16 06:14] LABS: Potassium 4.1 mmol/L (3.5-5.1)
--- NOTE | 2021-06-16 07:27 | EKG ---
Test Date: 2021-06-14 Test Time: 18:03:52 Skein Bander: EMILI MEASUREMENT RESULTS: Intervals: Rate: 86 NM: QRSD: 74 QT: 350 QTc: 418 [place]: P: NM: QRS: 103 T: 74 INTERPRETIVE STATEMENTS: Atrial fibrillation with premature ventricular or aberrantly conducted complexes Rightward axis Septal infarct, age undetermined Abnormal ECG No previous ECG available for comparison Electronically Signed On 06-16-21 07:22:26 CDT by Dustin Hutchins
[2021-06-16] MEDS: METOPROLOL TAR 25 MG TAB PO SCH (08:59)
[2021-06-16] MEDS: OSELTAMIVIR PHOSPHATE 30 MG/5 ML SUSPENSION UD PO SCH (08:59)
[2021-06-16] MEDS: DULOXETINE 30 MG CAP PO SCH (08:59)
[2021-06-16 12:01] VITALS: BP 173/72; TEMP 97.8
--- NOTE | 2021-06-16 18:12 | P.DS ---
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 HIS PULSE OX WAS DOWN TO 70% ON RA LAST NIGHT, AND THIS AM IS UP TO95% ON 1 LT NC. HE IS ALSO FLU POS BUT COVID NEG AND CT SHOWS NO PNEUMONIA OR EMBOLISM. Hospital Course: RAGHU CAME WITH DYSPNEA, COUGH, FLU WAS POSITIVE. HE IMPROVED WITH STEROIDS, NEBS AND TAMIFLU. HE NEEDED OXYGEN SUPPLY FOR HOME. 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 I ASKED HIM TO REDUCE DOSE TO HALF OR 1/4TH. HE LIKED ATROVENT ALONE BETTER. Vital Signs/Physical Exam: Temp Pulse Resp BP Pulse Ox 97.8 F 77 16 173/72 H 91 06/16/21 12:00 06/16/21 12:00 06/16/21 12:00 06/16/21 12:00 06/16/21 12:00 Laboratory Data at Discharge: WBC 5.90 K/uL (4.3-10.9) D 06/16/21 05:45 Hgb 14.6 g/dL (13.6-17.9) 06/16/21 05:45 Hct 44.0 % (39.6-49.0) 06/16/21 05:45 Plt Count 134 K/uL (152-406) L D 06/16/21 05:45 PT 12.0 SECONDS (9.5-12.5) 06/14/21 18:50 INR 1.09 06/14/21 18:50 APTT 34.1 SECONDS (24.3-36.9) 06/14/21 18:50 Sodium 134 mmol/L (136-145) L 06/16/21 05:45 Potassium 4.1 mmol/L (3.5-5.1) 06/16/21 05:45 BUN 21 mg/dL (7-18) H 06/16/21 05:45 Creatinine 1.29 mg/dL (0.55-1.3) 06/16/21 05:45 Glucose 143 mg/dL (74-106) H 06/16/21 05:45 Magnesium 2.0 mg/dL (1.8-2.4) 06/15/21 03:41 Total Bilirubin 0.6 mg/dL (0.2-1.0) 06/14/21 18:50 AST 48 U/L (15-37) H 06/14/21 18:50 ALT 38 U/L (12-78) 06/14/21 18:50 Alkaline Phosphatase 130 U/L (45-117) H 06/14/21 18:50 Home Medications: Aspirin [Aspirin EC 81 MG] 81 mg PO DAILY 06/15/21 Duloxetine HCl [Cymbalta] 30 mg PO DAILY 06/15/21 Furosemide [Lasix] 20 mg PO DAILY 06/15/21 Metoprolol Tartrate 25 mg PO BID 06/15/21 Oseltamivir [Tamiflu] 75 mg PO BID #8 cap 06/16/21 dexAMETHasone [Decadron*] 4 mg PO BID #30 tab 06/16/21 New Medications: dexAMETHasone [Decadron*] 4 mg PO BID #30 tab Oseltamivir [Tamiflu] 75 mg PO BID #8 cap Followup: Jose Medina MD [Primary Care Provider] - (Call to schedule follow up appointment)
== END 2021-06-16 14:15 | disposition home or self-care (01) | DRG 193 ==
LOC: ER 18:36 → ERHOLD 22:16 → 2ND 22:51
PROVIDERS: ADMIT Internal Medicine; ATTEND Internal Medicine
DX: J09.X2 Influenza due to identified novel influenza A virus with other respiratory manifestations (principal); J96.01 Acute respiratory failure with hypoxia; J44.9 Chronic obstructive pulmonary disease, unspecified; Z79.82 Long term (current) use of aspirin; Z79.899 Other long term (current) drug therapy; Z95.1 Presence of aortocoronary bypass graft; Z87.891 Personal history of nicotine dependence; Z20.822 Contact with and (suspected) exposure to COVID-19
CPT/HCPCS: 0240U; 36415; 71045; 71275; 80048; 80076; 81003; 82607; 82728; 83605; 83735; 83880; 84145; 84443; 84484; 85025; 85610; 85730; 86140; 87040; 93005; 94010; 94640; 94760; 96365; 96366; 96375; 99285; J2920; J2930; J7040; Q9967

== ENCOUNTER 2021-06-19 08:43 | Inpatient (IN) | payer OTHER, BC ==
--- OUTSIDE RECORDS SUMMARY | 2021-06-19 08:48 | XMS REPORT | Continuity of Care Document ---
:1935 Author Organization [facility] t Address [address] [place] [address] Care Team Providers Name Role Phone TONY PRIEST Primary Care Physician Unavailable COOPER DE LA ROSA Attending Clinician Unavailable COOPER DE LA ROSA Admitting Clinician Unavailable Payers Payer Name Policy Type Policy Number Effective Date Expiration Date S ource MEDICARE A B [id number] [facility] [place] [id number] 2001 OS 00:00:00 Problems This patient has no known problems. Allergies, Adverse Reactions, Alerts Allergy Allergy Status Severity Reaction(s) Onset Inactive Treating Comm ents Source Name Type Date Date Clinician NO KNOWN Allergy Active [facility] Medications This patient has no known medications. [...] Inpatient ER HIRA DE LA ROSA Surgery [id number] [facility] 18:20:23 NADEEM 2020-03-18 2020-03-18 Outpatient EL HIRA DE LA ROSA [facility] [id number] [facility] 00:00:00 00:00:00 NADEEM 2020-03-16 2020-03-16 Outpatient EL HIRA DE LA ROSA [facility] [id number] [facility] 00:00:00 00:00:00 NADEEM Results Test Description Test Time Test Comments Results Result Comments Source TISSUE EXAM 2020-03-09 Surgical Pathology 16:17:00 Report Case: [id number] Authorizing Provider: Nadeem De La Rosa, Collected: 03/03/2020 03:01 PM Ordering Location: [facility] Received: 03/04/2020 08:21 AM PERIOPERATIVE SERVICES Pathologist: Tre Eugene MD Specimen: Chest, Mole in chest SKIN, CHEST, EXCISION: - SEBORRHEIC KERATOSIS, IRRITATED AND INFLAMED Signing Pathologist Direct Phone Line: [phone] ically signed by Tre Eugene MD on 03/09/2020 at 4:17 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 Banana Grader ID - FIDEL [id number] 07:18:00 Test Item Value Reference Range Interpretation Comments MAGNESIUM (BEAKER) (test code = 1.7 mg/dL 1.6-2.6 627) Banana Grader ID - FIDEL [id number] 07:18:00 Test Item Value Reference Range Interpretation Comments PHOSPHORUS (BEAKER) (test code = 2.7 mg/dL 2.3-4.7 604) Banana Grader ID - FIDEL LPOCT-GLUCOSE [id number] 07:02:00 Test Item Value Reference Range Interpretation Comments POC-GLUCOSE METER 116 mg/dL 70-110 H : TESTED A T [facility] [address]20 (BEAKER) (test code = [facility], 1538) [address]: Banana Grader/Techni suma ID = [id number] for FLOYD LIN POCT-GLUCOSE [id number] 07:01:00 Test Item Value Reference Range Interpretation Comments POC-GLUCOSE METER 124 mg/dL 70-110 H : TESTED A T [facility] 6720 (BEAKER) (test code = [facility], 1538) [address]: Banana Grader/Techni suma ID = [id number] for FLOYD LIN CBC (HEMOGRAM ONLY)2020-03-08 06:44:00 [...] 0-0 (BEAKER) (test code = 413) POCT-GLUCOSE [id number] 21:50:00 Test Item Value Reference Range Interpretation Comments POC-GLUCOSE METER 122 mg/dL 70-110 H : TESTED A T [facility] [address] (BEAKER) (test code = [place], 1538) [address]: Banana Grader/Techni suma ID = [id number] for PE RALES, EDGARDO CT, CHEST, WITHOUT [id number] 09:41:00Unlisted Reason for Exam - Click Yes and Enter Reason Below->No [facility] 1935 Sex: MFINAL [...] MDReport Verified Date/Time: 03/07/2020 09:41:32 Reading Location: [facility] [address] [place] [address] Consult Reading Room POCT-GLUCOSE [id number] 08:43:00 Test Item Value Reference Range Interpretation Comments POC-GLUCOSE METER 110 mg/dL 70-110 : TESTED A T [facility] [address] [facility] (test code = [place], 1538) [address]: Banana Grader/Techni suma ID = [id number] for FLOYD LIN BASIC METABOLIC [id number] 05:39:00 Test Item Value Reference Range Interpretation [...] S NOT APPLICABLE FOR DIALYSIS PATIEN TS. Banana Grader ID - [id number] 05:39:00 Test Item Value Reference Range Interpretation Comments MAGNESIUM (BEAKER) (test code = 1.7 mg/dL 1.6-2.6 627) Banana Grader ID - [id number] 05:39:00 Test Item Value Reference Range Interpretation Comments PHOSPHORUS (BEAKER) (test code = 2.5 mg/dL 2.3-4.7 604) Banana Grader ID - EDASICBC (HEMOGRAM ONLY)2020-03-07 05:00:00 Test [...] (test code = 413) BUN AND CREATININE [id number] 17:55:00 Test Item Value Reference Range Interpretation Comments BLOOD UREA NITROGEN 12 mg/dL 7-21 (BEAKER) (test code = 354) CREATININE (BEAKER) 0.84 mg/dL 0.57-1.25 (test code = 358) BUN/CREAT RATIO 14 For a normal (BEAKER) (test code individu al on a = [id number]) normal diet, t he reference inter karol for the mass ra casie ranges between 12:1 and 20:1 (BUN i n mg/dL/creatinin e in mg/dL) EGFR (BEAKER) (test 87 mL/min/1.73 ESTIMA LULU GFR IS code = 1092) sq m NOT ACCURATE CREATININE CLEARANCE IN PREDICTING GLOMERULAR FILTRATION RATE . ESTIMATED GFR I S NOT APPLICABLE FOR DIALYSIS PATIEN TS. Banana Grader ID - ADMINPOCT-GLUCOSE [id number] 16:29:00 Test Item Value Reference Range Interpretation Comments POC-GLUCOSE METER 139 mg/dL 70-110 H : TESTED A T [facility] 67[address] ([employer]) (test code = [facility], 1538) [address]: Banana Grader/Techni suma ID = [id number] for Roxanne Manley POCT-GLUCOSE [id number] 12:23:00 Test Item Value Reference Range Interpretation Comments POC-GLUCOSE METER 143 mg/dL 70-110 H : TESTED A T [facility] [address] ([employer]) (test code = [facility], 1538) [address]: Banana Grader/Techni suma ID = [id number] for Roxanne Manley POCT-GLUCOSE [id number] 08:52:00 Test Item Value Reference Range Interpretation Comments POC-GLUCOSE METER 132 mg/dL 70-110 H : TESTED A T [facility] 6720 (BEAKER) (test code = [facility] [facility], 1538) [address]: Banana Grader/Techni suma ID = [id number] for Roxanne Manley BASIC METABOLIC [id number] 06:11:00 Test Item Value Reference Range Interpretation [...] S NOT APPLICABLE FOR DIALYSIS PATIEN TS. Banana Grader ID - [id number] 06:11:00 Test Item Value Reference Range Interpretation Comments PHOSPHORUS (BEAKER) (test code = 2.1 mg/dL 2.3-4.7 L 604) Banana Grader ID - ADMINCBC W/PLT COUNT & AUTO [id number] 05:34:00 Test Item Value Reference Range Interpretation [...] PERCENT (BEAKER) (test code = 2801) POCT-GLUCOSE [id number] 22:09:00 Test Item Value Reference Range Interpretation Comments POC-GLUCOSE METER 127 mg/dL 70-110 H : TESTED A T [facility] [address] (BEAKER) (test code = [place], 1538) [address]: Banana Grader/Techni suma ID = [id number] for Re yes, Sairy POCT-GLUCOSE [id number] 17:18:00 Test Item Value Reference Range Interpretation Comments POC-GLUCOSE METER 129 mg/dL 70-110 H : TESTED A T [facility] 6720 (BEAKER) (test code = [facility] Melva [facility], 1538) [address]: Banana Grader/Techni suma ID = [id number] for GO MEZ (V), SULEYDI POCT-GLUCOSE [id number] 12:42:00 Test Item Value Reference Range Interpretation Comments POC-GLUCOSE METER 151 mg/dL 70-110 H : TESTED A T [facility] 6720 (BEAKER) (test code = [facility], 1538) [address]: Banana Grader/Techni suma ID = [id number] for OR STONEY RAZO RAD, CHEST, 1 VIEW, NON [id number] 10:28:00Reason for exam:->shortness of breathShould this be performed at the bedside?->Yes [facility] 1935 Sex: MFINAL REPORT INDICATION: shortness of breath COMPARISON: March 04, 2020 TECHNIQUE: Single frontal view of the chest. FINDINGS: Lungs and pleura: Clear lungs. No effusion.Heart and mediastinum: Normal heart size. Unremarkable mediastinal contours.Osseous structures: Noacute abnormality.Other: None. IMPRESSION: No acute intrathoracic abnormality. Signed: Eddie Khalil Verified Date/Time: 03/05/2020 10:28:06 Reading Location: [facility] Radiology Reading Room POCT-GLUCOSE [id number] 08:12:00 Test Item Value Reference Range Interpretation Comments POC-GLUCOSE METER 100 mg/dL 70-110 : TESTED A T [facility] [address] (BEAKER) (test code = [place], 1538) [address]: Banana Grader/Techni suma ID = [id number] for OR CHRISTOPHERSTONEY Porter BASIC METABOLIC [id number] 06:22:00 Test Item Value Reference Range Interpretation [...] S NOT APPLICABLE FOR DIALYSIS PATIEN TS. Banana Grader ID - JEFRY [id number] 06:22:00 Test Item Value Reference Range Interpretation Comments MAGNESIUM (BEAKER) (test code = 1.9 mg/dL 1.6-2.6 627) Banana Grader ID - JEFRY [id number] 06:22:00 Test Item Value Reference Range Interpretation Comments PHOSPHORUS (BEAKER) (test code = 2.0 mg/dL 2.3-4.7 L 604) Banana Grader ID - JEFRY MCBC (HEMOGRAM ONLY)2020-03-05 05:14:00 [...] WBC 0-0 (test code = 413) POCT-GLUCOSE [id number] 21:40:00 Test Item Value Reference Range Interpretation Comments POC-GLUCOSE METER 134 mg/dL 70-110 H : TESTED A T [facility] 6720 (BEAKER) (test code = [facility], 1538) [address]: Banana Grader/Techni suma ID = [id number] for Re yes, Sairy POCT-GLUCOSE [id number] 17:30:00 Test Item Value Reference Range Interpretation Comments POC-GLUCOSE METER 117 mg/dL 70-110 H : TESTED A T [facility] 67[address] (BEAKER) (test code = [facility], 1538) [address]: Banana Grader/Techni suam ID = [id number] for MU BERNY LEVIN [id number] 11:56:00 Test Item Value Reference Range Interpretation Comments MAGNESIUM (BEAKER) (test code = 2.1 mg/dL 1.6-2.6 627) Banana Grader ID - AAHAMIDPOCT-GLUCOSE [id number] 10:28:00 Test Item Value Reference Range Interpretation Comments POC-GLUCOSE METER 136 mg/dL 70-110 H : TESTED A T [facility] [address]20 (BEAKER) (test code = [facility] [facility], 1538) [address]: Banana Grader/Techni suma ID = [id number] for BERNY CALL LACTIC ACID, [id number] 05:34:00 Test Item Value Reference Range Interpretation Comments LACTATE BLOOD ARTERIAL (2) 1.2 mmol/L 0.5-2.2 (BEAKER) (test code = 2874) Banana Grader ID - EDASIBLOOD GAS, [id number] 05:19:00 Test Item Value Reference Range Interpretation [...] (BEAKER) (test code = 1819) 36.0 POCT-GLUCOSE [id number] 05:17:00 Test Item Value Reference Range Interpretation Comments POC-GLUCOSE METER 168 mg/dL 70-110 H : TESTED A T [facility] 6720 (BEAKER) (test code = [place] [facility], 153) [address]: Banana Grader/Techni suma ID = [id number] for Jv Domingo RAD, CHEST, 1 VIEW, NON [id number] 03:28:00while patient is intubated or has chest tubes.Reason for exam:->Status post CV SurgeryShould thisbe performed at the bedside?->Yes [facility] 1935 Sex: MFINAL REPORT [...] MDReport Verified Date/Time: 03/04/2020 03:28:16 BASIC METABOLIC [id number] 03:25:00 Test Item Value Reference Range Interpretation [...] S NOT APPLICABLE FOR DIALYSIS PATIEN TS. Banana Grader ID - [id number] 03:09:00 Test Item Value Reference Range Interpretation Comments MAGNESIUM (BEAKER) (test code = 1.8 mg/dL 1.6-2.6 627) Banana Grader ID - [id number] 03:09:00 Test Item Value Reference Range Interpretation Comments PHOSPHORUS (BEAKER) (test code = 3.1 mg/dL 2.3-4.7 604) Banana Grader ID - EDASICBC (HEMOGRAM ONLY)2020-03-04 02:54:00 Test [...] 0-0 (test code = 413) LACTIC ACID, [id number] 00:26:00 Test Item Value Reference Range Interpretation Comments LACTATE BLOOD ARTERIAL (2) 1.6 mmol/L 0.5-2.2 (BEAKER) (test code = 2874) Banana Grader ID - JEFRY MPOCT-GLUCOSE [id number] 00:19:00 Test Item Value Reference Range Interpretation Comments POC-GLUCOSE METER 171 mg/dL 70-110 H : TESTED A T [facility] [address] (BEAKER) (test code = [place], 1538) [address]: Banana Grader/Techni suma ID = [id number] for Jv Domingo BLOOD GAS, [id number] 00:16:00 Test Item Value Reference Range Interpretation [...] (test code = 1819) 36.0 BLOOD GAS, [id number] 21:27:00 Test Item Value Reference Range Interpretation [...] (test code = 1819) 40.0 LACTIC ACID, [id number] 19:55:00 Test Item Value Reference Range Interpretation Comments LACTATE BLOOD 2.3 mmol/L 0.5-2.2 H Specimen sligh tly ARTERIAL (2) (BEAKER) hemoly zed (test code = 2874) Banana Grader ID - BSCBC W/PLT COUNT & AUTO [id number] 19:39:00 Test Item Value Reference Range Interpretation [...] PERCENT (BEAKER) (test code = 2801) CALCIUM, [id number] 19:36:00 Test Item Value Reference Range Interpretation Comments CALCIUM IONIZED (BEAKER) (test 1.06 mmol/L 1.12-1.27 L code = 698) PH, BLOOD (BEAKER) (test code = 7.42 1810) BLOOD GAS, [id number] 19:36:00 Test Item Value Reference Range Interpretation [...] (BEAKER) (test code = 1819) 40.0 GLUCOSE-STAT [id number] 19:36:00 Test Item Value Reference Range Interpretation Comments GLUCOSE RANDOM (BEAKER) (test code 148 mg/dL 70-110 H = 652) HGB/HCT (H&H) - STAT [id number] 19:36:00 Test Item Value Reference Range Interpretation Comments HEMOGLOBIN (BEAKER) (test code = 12.0 GM/DL 13.0-16.8 L 410) HEMATOCRIT (BEAKER) (test code = 35.0 % 40.0-50.0 L 411) SODIUM NA-STAT [id number] 19:35:00 Test Item Value Reference Range Interpretation Comments SODIUM (BEAKER) (test code = 381) 135 meq/L 136-145 L POTASSIUM-STAT [id number] 19:35:00 Test Item Value Reference Range Interpretation Comments POTASSIUM (BEAKER) (test code = 4.2 meq/L 3.6-5.5 379) SARS-COV2/RT-PCR ([facility])2020-03-03 18:50:00 Test Item Value Reference Range Interpretation Comments SARS-COV2/RT-PCR (test Negative Not Detected, Negative, code = 3383633) See external report for linked test SARS-COV-2 PERFORMING LAB [facility] (test code = 5735384) Negative result for this test determines that [...] 564(g) of the Act.Fact Sheet for Healthcare Providers:https://www.MyOutdoorTV.comidel.com/sites/default/files/product/documents/Fact_Shee s_FT_Agvxzkqpn_Rowj_OSGH-WvL-6.pdfFact Sheet for Healthcare Patients:https://www.MyOutdoorTV.comidel.com/sites/default/files/product/ documents/Boux_Blfdc_Wfctikpm_Tuot_XVVO-KhD-3.pdfPerforming Laboratory:[facility], [place] [address]EG/[id number] 18:18:00 Test Item Value Reference Range Interpretation [...] INR is2.5-3.5 for patients wiht mechanical heart valves.[id number] 18:02:00 Test Item Value Reference Range Interpretation Comments MAGNESIUM (BEAKER) 1.9 mg/dL 1.6-2.6 Specimen slightly (test code = 627) hemolyzed Banana Grader ID - [id number] 18:02:00 Test Item Value Reference Range Interpretation Comments PHOSPHORUS (BEAKER) 3.3 mg/dL 2.3-4.7 Specimen slightly (test code = 604) hemolyzed Banana Grader ID - [id number] 18:00:00 Test Item Value Reference Range Interpretation Comments MAGNESIUM (BEAKER) 2.3 mg/dL 1.6-2.6 Specimen slightly (test code = 627) hemolyzed Banana Grader ID - [id number] 18:00:00 Test Item Value Reference Range Interpretation Comments PHOSPHORUS (BEAKER) 2.6 mg/dL 2.3-4.7 Specimen slightly (test code = 604) hemolyzed Banana Grader ID - BSBASIC METABOLIC [id number] 18:00:00 Test Item Value Reference Range Interpretation [...] S NOT APPLICABLE FOR DIALYSIS PATIEN TS. Banana Grader ID - BSRAD, CHEST, 1 VIEW, NON [id number] 18:00:00Reason for exam:- >s/p cv surgery [facility] 1935 Sex: MFINAL [...] [place] Verified Date/Time: 03/03/2020 18:00:39 Reading Location: [address] Transitional Reading Room LACTIC ACID, [id number] 17:56:00 Test Item Value Reference Range Interpretation Comments LACTATE BLOOD 1.2 mmol/L 0.5-2.2 Specimen sligh tly ARTERIAL (2) (BEAKER) hemoly zed (test code = 2874) Banana Grader ID - ADMINPROTHROMBIN [id number] 17:50:00 Test Item Value Reference Range Interpretation [...] INR is2.5-3.5 for patients wiht mechanical heart valves.[id number] 17:50:00 Test Item Value Reference Range Interpretation Comments FIBRINOGEN LEVEL (BEAKER) (test 233 mg/dl 225-434 code = 658) [id number] 17:50:00 Test Item Value Reference Range Interpretation Comments PARTIAL THROMBOPLASTIN TIME 28.3 seconds 22.5-36.0 (BEAKER) (test code = 760) CBC W/PLT COUNT & AUTO [id number] 17:47:00 Test Item Value Reference Range Interpretation [...] PERCENT (BEAKER) (test code = 2801) POTASSIUM-STAT [id number] 17:34:00 Test Item Value Reference Range Interpretation Comments POTASSIUM (BEAKER) (test code = 4.7 meq/L 3.6-5.5 379) OXYGEN SATURATION, [id number] 17:34:00 Test Item Value Reference Range Interpretation Comments O2 SATURATION (MEASURED) (BEAKER) 69.3 % (test code = 1455) CALCIUM, [id number] 17:34:00 Test Item Value Reference Range Interpretation Comments CALCIUM IONIZED (BEAKER) (test 1.34 mmol/L 1.12-1.27 H code = 698) PH, BLOOD (BEAKER) (test code = 7.45 1810) BLOOD GAS, [id number] 17:34:00 Test Item Value Reference Range Interpretation [...] (test code = 1819) 50.0 SODIUM NA-STAT [id number] 17:34:00 Test Item Value Reference Range Interpretation Comments SODIUM (BEAKER) (test code = 381) 133 meq/L 136-145 L GLUCOSE-STAT [id number] 17:34:00 Test Item Value Reference Range Interpretation Comments GLUCOSE RANDOM (BEAKER) (test code 137 mg/dL 70-110 H = 652) HGB/HCT (H&H) - STAT [id number] 17:34:00 Test Item Value Reference Range Interpretation Comments HEMOGLOBIN (BEAKER) (test code = 12.8 GM/DL 13.0-16.8 L 410) HEMATOCRIT (BEAKER) (test code = 38.0 % 40.0-50.0 L 411) [id number] 17:24:00 Test Item Value Reference Range Interpretation Comments ACTIVATED CLOTTING TIME 109 sec : 74 -137 seconds, (BEAKER) (test code = Baseli ne: TESTED AT 441) [facility] [address] [place] [address], [facility] 30: Banana Grader/Techni suma ID = [id number] for MASON TRAVIS [id number] 17:24:00 Test Item Value Reference Range Interpretation Comments ACTIVATED CLOTTING TIME 488 sec : 74 -137 seconds, (BEAKER) (test code = Baseli ne: TESTED AT 441) [address], [facility] 30: Banana Grader/Techni suma ID = [id number] for MASON TRAVIS [id number] 17:24:00 Test Item Value Reference Range Interpretation Comments ACTIVATED CLOTTING TIME 494 sec : 74 -137 seconds, (BEAKER) (test code = Baseli ne: TESTED AT 441) [address], [facility] 30: Banana Grader/Techni suma ID = [id number] for MASON TRAVIS [id number] 17:23:00 Test Item Value Reference Range Interpretation Comments ACTIVATED CLOTTING TIME 527 sec : 74 -137 seconds, (BEAKER) (test code = Baseli ne: TESTED AT 441) [address], [facility] 30: Banana Grader/Techni suma ID = [id number] for MASON TRAVIS PLATELET [id number] 17:14:00 Test Item Value Reference Range Interpretation Comments PLATELET COUNT (BEAKER) (test code 91 K/CU MM 150-450 L = 756) Banana Grader ID - [id number] ID - [id number] 16:59:00 Test Item Value Reference Range Interpretation Comments FIBRINOGEN LEVEL (BEAKER) (test 233 mg/dl 225-434 code = 658) HGB/HCT (H&H) - STAT [id number] 16:40:00 Test Item Value Reference Range Interpretation Comments HEMOGLOBIN (BEAKER) (test code = 10.7 GM/DL 13.0-16.8 L 410) HEMATOCRIT (BEAKER) (test code = 31.0 % 40.0-50.0 L 411) CALCIUM, [id number] 16:39:00 Test Item Value Reference Range Interpretation Comments CALCIUM IONIZED (BEAKER) (test 1.17 mmol/L 1.12-1.27 code = 698) PH, BLOOD (BEAKER) (test code = 7.36 1810) POTASSIUM-STAT [id number] 16:39:00 Test Item Value Reference Range Interpretation Comments POTASSIUM (BEAKER) (test code = 5.0 meq/L 3.6-5.5 379) BLOOD GAS, [id number] 16:39:00 Test Item Value Reference Range Interpretation [...] (test code = 1819) 100.0 SODIUM NA-STAT [id number] 16:39:00 Test Item Value Reference Range Interpretation Comments SODIUM (BEAKER) (test code = 381) 131 meq/L 136-145 L GLUCOSE-STAT [id number] 16:39:00 Test Item Value Reference Range Interpretation Comments GLUCOSE RANDOM (BEAKER) (test code 156 mg/dL 70-110 H = 652) BLOOD GAS, [id number] 16:10:00 Test Item Value Reference Range Interpretation [...] (test code = 1819) 70.0 SODIUM NA-STAT [id number] 16:10:00 Test Item Value Reference Range Interpretation Comments SODIUM (BEAKER) (test code = 381) 129 meq/L 136-145 L POTASSIUM-STAT [id number] 16:10:00 Test Item Value Reference Range Interpretation Comments POTASSIUM (BEAKER) (test code = 5.6 meq/L 3.6-5.5 H 379) GLUCOSE-STAT [id number] 16:10:00 Test Item Value Reference Range Interpretation Comments GLUCOSE RANDOM (BEAKER) (test code 174 mg/dL 70-110 H = 652) HGB/HCT (H&H) - STAT [id number] 16:10:00 Test Item Value Reference Range Interpretation Comments HEMOGLOBIN (BEAKER) (test code = 10.5 GM/DL 13.0-16.8 L 410) HEMATOCRIT (BEAKER) (test code = 31.0 % 40.0-50.0 L 411) POTASSIUM-STAT [id number] 15:42:00 Test Item Value Reference Range Interpretation Comments POTASSIUM (BEAKER) (test code = 4.5 meq/L 3.6-5.5 379) BLOOD GAS, [id number] 15:42:00 Test Item Value Reference Range Interpretation [...] (test code = 1819) 60.0 SODIUM NA-STAT [id number] 15:42:00 Test Item Value Reference Range Interpretation Comments SODIUM (BEAKER) (test code = 381) 130 meq/L 136-145 L GLUCOSE-STAT [id number] 15:42:00 Test Item Value Reference Range Interpretation Comments GLUCOSE RANDOM (BEAKER) (test code 168 mg/dL 70-110 H = 652) HGB/HCT (H&H) - STAT [id number] 15:42:00 Test Item Value Reference Range Interpretation Comments HEMOGLOBIN (BEAKER) (test code = 10.7 GM/DL 13.0-16.8 L 410) HEMATOCRIT (BEAKER) (test code = 31.0 % 40.0-50.0 L 411) BLOOD GAS, [id number] 15:29:00 Test Item Value Reference Range Interpretation [...] (test code = 1819) 80.0 SODIUM NA-STAT [id number] 15:29:00 Test Item Value Reference Range Interpretation Comments SODIUM (BEAKER) (test code = 381) 125 meq/L 136-145 L HGB/HCT (H&H) - STAT [id number] 15:29:00 Test Item Value Reference Range Interpretation Comments HEMOGLOBIN (BEAKER) (test code = 9.8 GM/DL 13.0-16.8 L 410) HEMATOCRIT (BEAKER) (test code = 29.0 % 40.0-50.0 L 411) GLUCOSE-STAT [id number] 15:27:00 Test Item Value Reference Range Interpretation Comments GLUCOSE RANDOM (BEAKER) (test code = 91 mg/dL 70-110 652) POTASSIUM-STAT [id number] 15:27:00 Test Item Value Reference Range Interpretation Comments POTASSIUM (BEAKER) (test code = 3.9 meq/L 3.6-5.5 379) BLOOD GAS, [id number] 14:51:00 Test Item Value Reference Range Interpretation [...] (BEAKER) (test code = 1819) 100.0 CALCIUM, [id number] 14:51:00 Test Item Value Reference Range Interpretation Comments CALCIUM IONIZED (BEAKER) (test 1.11 mmol/L 1.12-1.27 L code = 698) PH, BLOOD (BEAKER) (test code = 7.43 1810) GLUCOSE-STAT [id number] 14:50:00 Test Item Value Reference Range Interpretation Comments GLUCOSE RANDOM (BEAKER) (test code 108 mg/dL 70-110 = 652) SODIUM NA-STAT [id number] 14:50:00 Test Item Value Reference Range Interpretation Comments SODIUM (BEAKER) (test code = 381) 137 meq/L 136-145 POTASSIUM-STAT [id number] 14:50:00 Test Item Value Reference Range Interpretation Comments POTASSIUM (BEAKER) (test code = 3.6 meq/L 3.6-5.5 379) HGB/HCT (H&H) - STAT [id number] 14:50:00 Test Item Value Reference Range Interpretation Comments HEMOGLOBIN (BEAKER) (test code = 14.6 GM/DL 13.0-16.8 410) HEMATOCRIT (BEAKER) (test code = 43.0 % 40.0-50.0 411) COMPREHENSIVE METABOLIC [id number] 14:15:00 Test Item Value Reference Range Interpretation [...] S NOT APPLICABLE FOR DIALYSIS PATIEN TS. Ban[employer]ader ID - [id number] W/PLT COUNT & AUTO [id number] 14:12:00 Test Item Value Reference Range Interpretation [...] PERCENT (BEAKER) (test code = 2801) PROTHROMBIN [id number] 14:09:00 Test Item Value Reference Range Interpretation [...]
[2021-06-19] MEDS ORDERED: ALBUTEROL 2.5 MG/3 ML NEB SOL NEB PRN (09:09)
[2021-06-19] MEDS ORDERED: IPRATROPIUM BROM 0.5MG/2.5ML NEB PRN (09:09)
[2021-06-19] MEDS ORDERED: ONDANSETRON 4 MG/2 ML VIAL IV PRN (09:09)
[2021-06-19] MEDS ORDERED: NA CHLORIDE 0.9% 250 ML ONE ×2 (09:10→20:56)
[2021-06-19] MEDS ORDERED: AZITHROMYCIN 500 MG INJ IVPB ONE (09:10)
[2021-06-19] MEDS ORDERED: CEFTRIAXONE 1000 MG/VIAL ONE ×2 (09:10→20:22)
[2021-06-19 09:35] LABS: Absolute Lymphocytes (CBC) 2.1 K/uL (0.7-4.9); Hematocrit 47.2 % (39.6-49.0); Lymphocytes % 16.3 % (15.3-44.8); MPV 10.1 fL (7.6-11.3); RBC Red Blood Cell Count 5.39 M/uL (4.33-5.43)
[2021-06-19 09:42] LABS: Protime INR 0.94
[2021-06-19] MEDS ORDERED: LEVALBUTEROL 1.25 MG/3 ML NEB ONE (09:42)
[2021-06-19] MEDS ORDERED: METHYLPREDNISOLONE 125 MG INJ ONE (09:42)
[2021-06-19] MEDS ORDERED: IPRATROPIUM BROM 0.5MG/2.5ML ONE (09:42)
--- NOTE | 2021-06-19 09:42 | RAD REPORT ---
EXAM DESCRIPTION: Emi Single View06/19/2021 9:35 am CLINICAL HISTORY: Congestion COMPARISON: June 14, 2021 FINDINGS: Lungs are moderately hyperaerated. Nodular opacities which overlie the lung bases represen t nipple shadows. The lungs appear clear of acute infiltrate. The heart is normal size IMPRESSION: COPD without visualization of an acute abnormality
[2021-06-19 09:54] LABS: Albumin 3.6 g/dL (3.4-5.0); Bilirubin Direct 0.4 mg/dL (0-0.2); CKMB Creatine Kinase MB 5.7 ng/mL (1.0-3.6); Magnesium 2.2 mg/dL (1.8-2.4); Potassium 3.6 mmol/L (3.5-5.1)
--- NOTE | 2021-06-19 10:03 | EDPHYS ---
Physician Documentation [facility] Name: Jacques Brown Age: 86 yrs Sex: Male : 1935 Arrival Date: 06/19/2021 Time: 08:44 Bed 6 Private MD: Jose Medina V ED Physician Alfredito Ruiz HPI: 06/19 08:56 This 86 yrs old Male presents to ER via Unassigned with complaints of Shortness Of ma2 Breath. 08:56 Onset: The symptoms/episode began/occurred gradually, 1 day(s) ago. Associated signs ma2 and symptoms: Pertinent negatives: productive cough, fever, loss of consciousness, numbness in extremities. Severity of symptoms: At their worst the symptoms were mild. The patient has experienced similar episodes in the past. Historical: - Allergies: 08:59 Albuterol; vg1 08:59 Mold; vg1 08:59 Dust mites; vg1 - Home Meds: 08:59 aspirin 81 mg Oral tab daily [Active]; duloxetine 30 mg Oral CDRS 1 cap once daily vg1 [Active]; Lasix 20 mg Oral tab 1 tab once daily [Active]; metoprolol tartrate 25 mg Oral tab 1 tab 2 times per day [Active]; pregabalin 50 mg Oral cap daily [Active]; Lyrica Oral [Active]; - PMHx: 08:59 Atrial fibrillation; Shingles; Restless Leg Syndrome; vg1 - PSHx: 08:59 Coronary artery bypass graft; vg1 - Immunization history:: Adult Immunizations up to date. - Social history:: Patient/guardian denies using alcohol, street drugs, The patient lives with family, Smoking status: Patient denies any tobacco usage or history of. - Family history:: not pertinent. ROS: 08:56 Constitutional: Negative for fever, chills, and weight loss. ma2 08:56 All other systems are negative. Exam: 08:56 Constitutional: This is a well developed, well nourished patient who is awake, alert, ma2 and in no acute distress. ENT: Nares patent. No nasal discharge, no septal abnormalities noted. Tympanic membranes are normal and external auditory canals are clear. Oropharynx with no redness, swelling, or masses, exudates, or evidence of obstruction, uvula midline. Mucous membranes moist. Neck: Trachea midline, no thyromegaly or masses palpated, and no cervical lymphadenopathy. Supple, full range of motion without nuchal rigidity, or vertebral point tenderness. No Meningismus. Chest/axilla: Normal chest wall appearance and motion. Nontender with no deformity. No lesions are appreciated. Cardiovascular: Regular rate and rhythm with a normal S1 and S2. No gallops, murmurs, or rubs. Normal PMI, no JVD. No pulse deficits. Respiratory: Lungs have equal breath sounds bilaterally, clear to auscultation and percussion. No rales, rhonchi or wheezes noted. No increased work of breathing, no retractions or nasal flaring. Abdomen/GI: Soft, non-tender, with normal bowel sounds. No distension or tympany. No guarding or rebound. No evidence of tenderness throughout. MS/ Extremity: Pulses equal, no cyanosis. Neurovascular intact. Full, normal range of motion. Neuro: Awake and alert, GCS 15, oriented to person, place, time, and situation. Cranial nerves II-XII grossly intact. Motor strength 5/5 in all extremities. Sensory grossly intact. Cerebellar exam normal. Normal gait. Vital Signs: 08:55 BP 152 / 89; Pulse 97; Resp 29; Temp 98.1; Pulse Ox 93% on 4 lpm NC; Weight 68.04 kg; vg1 Height 5 ft. 11 in. (180.34 cm); Pain 0/10; 10:02 BP 157 / 104; Pulse 92; Resp 24; Pulse Ox 96% on 4 lpm NC; huynh 08:55 Body Mass Index 20.92 (68.04 kg, 180.34 cm) vg1 MDM: 08:53 Patient medically screened. ma2 10:01 Differential diagnosis: asthma, Bronchitis CHF exacerbation, Chronic Obstructive ma2 Pulmonary Disease. Data reviewed: vital signs, EMS record. Data reviewed: [facility] records. Counseling: I had a detailed discussion with the patient and/or guardian regarding: the historical points, exam findings, and any diagnostic results supporting the discharge/admit diagnosis, the presence of at least one elevated blood pressure reading (>120/80) during this emergency department visit, the need for outpatient follow up. Response to treatment: the patient's symptoms have markedly improved after treatment. 06/19 08:55 Order name: BMP [facility] 06/19 08:55 Order name: Blood Culture Adult (2) [facility] 06/19 08:55 Order name: CBC with Diff; Complete Time: 10:01 [facility] 06/19 08:55 Order name: CPK; Complete Time: 10:01 [facility] 06/19 08:55 Order name: Ckmb; Complete Time: 10:01 [facility] 06/19 08:55 Order name: Hepatic Function; Complete Time: 10:01 [facility] 06/19 08:55 Order name: Lipase; Complete Time: 10:01 [facility] 06/19 08:55 Order name: Magnesium; Complete Time: 10:01 [facility] 06/19 08:55 Order name: NT PRO-BNP; Complete Time: 10:01 [facility] 06/19 08:55 Order name: PT-INR; Complete Time: 10:01 [facility] 06/19 08:55 Order name: Ptt, Activated; Complete Time: 10:01 [facility] 06/19 08:55 Order name: SARS-COV-2 RT PCR (Document "Date of Onset" if Symptomatic) [facility] 06/19 08:56 Order name: Basic Metabolic Panel; Complete Time: 10:01 [facility] 06/19 09:13 Order name: Basic Metabolic Panel [facility] 06/19 08:55 Order name: XRAY CXR (1 view) [facility] 06/19 08:55 Order name: EKG; Complete Time: 08:56 [facility] 06/19 09:13 Order name: Regular [facility] 06/19 09:13 Order name: Basic Metabolic Panel [facility] 06/19 09:13 Order name: CBC with Automated Diff [facility] 06/19 09:13 Order name: CBC with Automated Diff [facility] 06/19 09:13 Order name: NT PRO-BNP [facility] 06/19 09:13 Order name: NT PRO-BNP [facility] 06/19 09:43 Order name: RAD; Complete Time: 10:01 [facility] 06/19 10:54 Order name: CT [facility] 06/19 11:49 Order name: ABG Arterial Blood Gas [facility] 06/19 08:55 Order name: Cardiac monitoring; Complete Time: 09:33 [facility] 06/19 08:55 Order name: EKG - Nurse/Tech; Complete Time: 08:59 [facility] 06/19 08:55 Order name: IV Saline Lock; Complete Time: 09:33 [facility] 06/19 08:55 Order name: Labs collected and sent; Complete Time: : [facility] 06/19 08:55 Order name: O2 Per Protocol; Complete Time: [facility] 06/19 08:55 Order name: O2 Sat Monitoring; Complete Time: ma Administered Medications: 09:32 Drug: Rocephin (cefTRIAXone) 1 grams Route: IV; Rate: calculated rate; Site: right huynh antecubital; 09:32 Drug: AZITHromycin 500 mg Route: IVPB; Infused Over: 1 hrs; Site: right antecubital; huynh 09:45 Drug: SOLU-Medrol (methylPrednisoLONE) 125 mg Route: IVP; Site: right antecubital; 09:46 Follow up: Response: No adverse reaction 09:45 Drug: Xopenex (levalbuterol) 1.25 mg Route: Inhalation; 09:46 Drug: AtroVENT (ipratropium) Aerosol 0.5 mg Route: Inhalation; Disposition Summary: 06/19/21 10:02 Hospitalization Ordered Hospitalization Status: Observation [facility] Provider: Jose Medina [facility] Location: Telemetry/MedSurg (observation) ma2 Condition: Stable ma2 Problem: new ma2 Symptoms: are unchanged co2 Bed/Room Type: Standard [facility] Room Assignment: [facility](06/19/21 11:58) Diagnosis - COPD/ Chronic obstructive pulmonary disease with (acute) exacerbation [facility] Forms: - Medication Reconciliation Form ma2 - SBAR form co2 Signatures: Dispatcher [employer] EDMS Alfredito Ruiz MD MD co2 Kathy Carrera Victoria, RN RN vg1 Janice Louise RN RN huynh Corrections: (The following items were deleted from the chart) 11:58 10:02 [facility] eb
--- NOTE | 2021-06-19 10:03 | ER ---
Nurse's Notes [facility] Name: Jacques Brown Age: 86 yrs Sex: Male : 1935 Arrival Date: 06/19/2021 Time: 08:44 Bed 6 Private MD: Jose Medina V Diagnosis: COPD/ Chronic obstructive pulmonary disease with (acute) exacerbation Presentation: 06/19 08:55 Chief complaint: Patient states: around mid night last night pt states became Shortness vg1 of breath; states was d/c on Monday, was admitted with Flu; pt states productive cough, denies chest pain. Pt is on 2L NC at home, in room pt O2 was 87% on 2 L, placed pt on 4 L NC O2 at 93%. Coronavirus screen: Vaccine status: Client denies travel out of the [place] in the last 14 days. Client presents with at least one sign or symptom that may indicate coronavirus-19. Standard/surgical mask placed on the client. Ebola Screen: Patient negative for fever greater than or equal to 101.5 degrees Fahrenheit, and additional compatible Ebola Virus Disease symptoms. Initial Sepsis Screen: Does the patient meet any 2 criteria? RR > 20 per min. Risk Assessment: Do you want to hurt yourself or someone else? Patient reports no desire to harm self or others. Onset of symptoms was June 18, 2021. 08:55 Method Of Arrival: Wheelchair vg1 08:55 Acuity: FRAN 3 vg1 09:35 Initial Sepsis Screen: Does the patient have a suspected source of infection? No. huynh Patient's initial sepsis screen is negative. Triage Assessment: 08:59 General: Appears in no apparent distress. uncomfortable, Behavior is calm, cooperative. vg1 Pain: Denies pain. Respiratory: Reports shortness of breath at rest on exertion cough that is productive, labored breathing Onset: The symptoms/episode began/occurred June 18 2021, the patient has moderate shortness of breath. Historical: - Allergies: 08:59 Albuterol; vg1 08:59 Mold; vg1 08:59 Dust mites; vg1 - Home Meds: 08:59 aspirin 81 mg Oral tab daily [Active]; duloxetine 30 mg Oral CDRS 1 cap once daily vg1 [Active]; Lasix 20 mg Oral tab 1 tab once daily [Active]; metoprolol tartrate 25 mg Oral tab 1 tab 2 times per day [Active]; pregabalin 50 mg Oral cap daily [Active]; Lyrica Oral [Active]; - PMHx: 08:59 Atrial fibrillation; Shingles; Restless Leg Syndrome; vg1 - PSHx: 08:59 Coronary artery bypass graft; vg1 - Immunization history:: Adult Immunizations up to date. - Social history:: Patient/guardian denies using alcohol, street drugs, The patient lives with family, Smoking status: Patient denies any tobacco usage or history of. - Family history:: not pertinent. Screenin:34 Abuse screen: Denies threats or abuse. Denies injuries from another. Nutritional huynh screening: No deficits noted. Tuberculosis screening: No symptoms or risk factors identified. Fall Risk IV access (20 points). Assessment: 09:34 Cardiovascular: Reports shortness of breath, Rhythm is atrial fibrillation. huynh Respiratory: Airway is patent Respiratory effort is labored, shallow, Breath sounds with crackles bilaterally. Vital Signs: 08:55 BP 152 / 89; Pulse 97; Resp 29; Temp 98.1; Pulse Ox 93% on 4 lpm NC; Weight 68.04 kg; vg1 Height 5 ft. 11 in. (180.34 cm); Pain 0/10; 10:02 BP 157 / 104; Pulse 92; Resp 24; Pulse Ox 96% on 4 lpm NC; huynh 08:55 Body Mass Index 20.92 (68.04 kg, 180.34 cm) vg1 ED Course: 08:44 Patient arrived in ED. as 08:44 Jose Medina MD is Private Physician. as 08:51 Janice Louise, RN is Primary Nurse. huynh 08:53 Alfredito Ruiz MD is Attending Physician. ma2 08:59 Triage completed. vg1 08:59 Arm band placed on. vg1 09:32 SARS-COV-2 RT PCR (Document "Date of Onset" if Symptomatic) Sent. huynh 09:32 Basic Metabolic Panel Sent. huynh 09:32 BMP Sent. huynh 09:33 Blood Culture Adult (2) Sent. huynh 09:33 CBC with Diff Sent. huynh 09:33 CPK Sent. huynh 09:33 Hepatic Function Sent. huynh 09:33 Ckmb Sent. huynh 09:33 Lipase Sent. huynh 09:33 Magnesium Sent. huynh 09:33 NT PRO-BNP Sent. huynh 09:33 PT-INR Sent. huynh 09:33 Ptt, Activated Sent. huynh 09:34 Patient has correct armband on for positive identification. Bed in low position. huynh 09:34 No provider procedures requiring assistance completed. Inserted saline lock: 20 gauge huynh in right antecubital area, using aseptic technique. 10:02 Jose Medina MD is Hospitalizing Provider. ma2 Administered Medications: 09:32 Drug: Rocephin (cefTRIAXone) 1 grams Route: IV; Rate: calculated rate; Site: right huynh antecubital; 09:32 Drug: AZITHromycin 500 mg Route: IVPB; Infused Over: 1 hrs; Site: right antecubital; huynh 09:45 Drug: SOLU-Medrol (methylPrednisoLONE) 125 mg Route: IVP; Site: right antecubital; huynh 09:46 Follow up: Response: No adverse reaction huynh 09:45 Drug: Xopenex (levalbuterol) 1.25 mg Route: Inhalation; huynh 09:46 Drug: AtroVENT (ipratropium) Aerosol 0.5 mg Route: Inhalation; huynh Outcome: 10:02 Decision to Hospitalize by Provider. ma2 12:41 Patient left the ED. mb7 Signatures: Preethi Calero Mohammad, MD MD ma2 Jenn Olivares RN RN Tamra Khan mb7 Janice Louise RN RN huynh
--- NOTE | 2021-06-19 10:13 | P.HP ---
Certification for Inpatient Patient admitted to: Inpatient With expected LOS: >2 Midnights Practitioner: I am a practitioner with admitting privileges, knowledge of patient current condition, hospital course, and medical plan of care. Services: Services provided to patient in accordance with Admission requirements found in Title 42 Section 412.3 of the Code of Federal Regulations Patient History Date of Service: 06/19/21 Reason for admission: DYSPNEA History of Present Illness: MR. PACKER IS COPD PATIENT WHO RECENTLY HAD FLU. HE WAS GOOD UNTIL LAST NIGHT. HE GOT DYSPNEA AND WAS BROUGHT HERE. I SAW HIM IN ER JUST HE CAME IN I WAS SEEING SOME OTHER PATIENT OF MINE. Allergies No Known Allergies Allergy (Unverified 02/26/20 11:05) Home medications list reviewed: Yes Home Medications: Aspirin [Aspirin EC 81 MG] 81 mg PO DAILY 06/15/21 Duloxetine HCl [Cymbalta] 30 mg PO DAILY 06/15/21 Furosemide [Lasix] 20 mg PO DAILY 06/15/21 Metoprolol Tartrate 25 mg PO BID 06/15/21 Oseltamivir [Tamiflu] 75 mg PO BID #8 cap 06/16/21 dexAMETHasone [Decadron*] 4 mg PO BID #30 tab 06/16/21 - Past Medical/Surgical History Diabetic: No -: A fib -: CABG Review of Systems 10-point ROS is otherwise unremarkable General: Weakness, Malaise Respiratory: Shortness of Breath, SOB with Excertion Physical Examination - Physical Exam General: Oriented x3, Moderate distress, Other HEENT: Atraumatic, PERRLA, Mucous membr. moist/pink, EOMI, Sclerae nonicteric Neck: Supple, 2+ carotid pulse no bruit, No LAD, Without JVD or thyroid abnormality Respiratory: Diminished, Expiratory wheezes Cardiovascular: Regular rate/rhythm, Normal S1 S2 Gastrointestinal: Normal bowel sounds, No tenderness Musculoskeletal: No tenderness Integumentary: No rashes Neurological: Normal gait, Normal speech, Normal strength at 5/5 x4 extr, Normal tone, Normal affect Lymphatics: No axilla or inguinal lymphadenopathy - Studies Laboratory Data (last 24 hrs) 06/19/21 09:00: PT 10.3, INR 0.94, APTT 24.0 L 06/19/21 09:00: WBC 12.80 H D, Hgb 15.5, Hct 47.2, Plt Count 145 L 06/19/21 09:00: Sodium 138, Potassium 3.6, BUN 22 H, Creatinine 1.01, Glucose 104, Magnesium 2.2, Total Bilirubin 1.0, AST 31, ALT 43, Alkaline Phosphatase 93, Lipase 129 Assessment and Plan - Problems (Diagnosis) (1) COPD (chronic obstructive pulmonary disease) Current Visit: No Status: Chronic Plan: IV STEROIDS NEBS DR BLANCO PROGNOSIS IS GUARDED CT ANGIO CHEST Qualifiers: COPD type: COPD with acute exacerbation Qualified Code(s): J44.1 - Chronic obstructive pulmonary disease with (acute) exacerbation - Advance Directives Does patient have a Living Will: Yes Does patient have a Durable POA for Healthcare: Yes
--- NOTE | 2021-06-19 10:15 | P.CNS ---
Date of Consult: 06/19/21 Reason for Consult: Respiratory distress Chief Complaint: DYSPNEA History of Present Illness: Patient is 86 years of age he has been sick for about 3 weeks caught influenza infection is here discharged came back again hypoxic chest congested former smoking quit many years ago he has had a history of coronary artery disease nonproductive cough sent home on oxygen he appears to be in distress Allergies No Known Allergies Allergy (Unverified 02/26/20 11:05) Home Medications: Aspirin [Aspirin EC 81 MG] 81 mg PO DAILY 06/15/21 Duloxetine HCl [Cymbalta] 30 mg PO DAILY 06/15/21 Furosemide [Lasix] 20 mg PO DAILY 06/15/21 Metoprolol Tartrate 25 mg PO BID 06/15/21 Oseltamivir [Tamiflu] 75 mg PO BID #8 cap 06/16/21 dexAMETHasone [Decadron*] 4 mg PO BID #30 tab 06/16/21 - Past Medical/Surgical History Diabetic: No -: A fib -: CABG Review of Systems 10-point ROS is otherwise unremarkable General: Weakness Respiratory: Cough, Shortness of Breath Physical Examination General: Alert, Moderate distress Respiratory: Expiratory wheezes Cardiovascular: No edema, Regular rate/rhythm, Normal S1 S2 Gastrointestinal: Normal bowel sounds, Hypoactive Musculoskeletal: No clubbing, No swelling Integumentary: No rashes Laboratory Data (last 24 hrs) 06/19/21 09:00: PT 10.3, INR 0.94, APTT 24.0 L 06/19/21 09:00: WBC 12.80 H D, Hgb 15.5, Hct 47.2, Plt Count 145 L 06/19/21 09:00: Sodium 138, Potassium 3.6, BUN 22 H, Creatinine 1.01, Glucose 104, Magnesium 2.2, Total Bilirubin 1.0, AST 31, ALT 43, Alkaline Phosphatase 93, Lipase 129 - Problems (1) COPD exacerbation Current Visit: Yes Status: Acute Plan: Patient is 86 years of age admitted with worsening dyspnea been sick for about 3 weeks after he contracted the flu will having cough congestion agree with the steroids add levofloxacin x-ray shows hyperinflation continue with bronchodilators and steroids arterial blood gases patient was discharged last time on dexamethasone and Tamiflu
--- NOTE | 2021-06-19 10:53 | RAD REPORT ---
EXAM DESCRIPTION: CT - Chest For Pe Angio - 06/19/2021 10:45 am CLINICAL HISTORY: HYPOXIA COMPARISON: Chest For Pe Angio dated 06/14/2021hest For Pe Angio dated 06/14/2021 FINDINGS: Chest Wall: No suspicious thyroid nodules or pathologic lymphadenopathy. Lungs: Scattered areas of mild nodularity and micro nodularity bilaterally. This is predominantly rig ht-sided. Motion artifact limits evaluation for small nodules. Scarring in left lung apex. Pleura: No significant effusions or pneumothorax. Mediastinum/evelia: No pathologic lymphadenopathy. Pulmonary arteries/Aorta: No filling defect identified. No aortic aneurysm. Heart: No significant pericardial effusion. Normal heart size. Mild coronary artery calcifications . Upper abdomen: No acute abnormality. Sternotomy. Bones: No acute abnormality. All CT scans are performed using dose optimization technique as appropriate and may include automated exposure control or mA/KV adjustment according to patient size. IMPRESSION: Negative for pulmonary embolism. New mild scattered micronodularity likely reflecting in fection or inflammation, including viral pneumonia.
[2021-06-19 11:41] LABS: Arterial Blood Carboxyhemoglob 1.1 % (0-1.5); Blood Gas Oxyhemoglobin 93.8 % (94-97); Blood O2 Saturation 95.8 % (92-98.5)
[2021-06-19 13:23] VITALS: BMI 20.9
[2021-06-19] MEDS: IPRATROPIUM BROM 0.5MG/2.5ML NEB SCH ×2 (13:35→21:30)
[2021-06-19] MEDS: ALBUTEROL 2.5 MG/3 ML NEB SOL NEB SCH ×2 (13:54→20:00)
[2021-06-19] MEDS: LEVALBUTEROL 0.63 MG/3 ML NEB NEB SCH ×2 (14:11→21:30)
[2021-06-19] MEDS ORDERED: LEVALBUTEROL 0.63 MG/3 ML NEB ONE (14:17)
[2021-06-19] MEDS: METHYLPREDNISOLONE 40 MG INJ IV SCH ×2 (14:41→17:17)
[2021-06-19] MEDS: levoFLOXacin 750 MG TAB PO SCH (14:41)
[2021-06-19] MEDS: ENOXAPARIN 40 MG/0.4 ML SQ SCH (14:41)
[2021-06-19] MEDS ORDERED: CEFTRIAXONE 1,000 MG in NA CHLORIDE 0.9% 50 ML IVPB SCH (21:00)
[2021-06-20] MEDS: METHYLPREDNISOLONE 40 MG INJ IV SCH ×4 (00:39→17:53)
[2021-06-20] MEDS: LEVALBUTEROL 0.63 MG/3 ML NEB NEB SCH ×4 (01:30→20:00)
[2021-06-20] MEDS: IPRATROPIUM BROM 0.5MG/2.5ML NEB SCH ×4 (01:30→20:00)
[2021-06-20] MEDS: ALBUTEROL 2.5 MG/3 ML NEB SOL NEB SCH ×4 (02:00→20:00)
[2021-06-20 05:53] LABS: Absolute Lymphocytes (CBC) 0.6 K/uL (0.7-4.9); Hematocrit 41.6 % (39.6-49.0); Lymphocytes % 4.1 % (15.3-44.8); MPV 10.3 fL (7.6-11.3); RBC Red Blood Cell Count 4.76 M/uL (4.33-5.43)
[2021-06-20 06:17] LABS: Potassium 4.2 mmol/L (3.5-5.1)
[2021-06-20] MEDS ORDERED: AZITHROMYCIN IV 250 MG in NA CHLORIDE 0.9% 250 ML IVPB SCH (09:00)
[2021-06-20] MEDS ORDERED: prednisoLONE 15 MG/5 ML OSYR PO SCH (09:00)
[2021-06-20] MEDS ORDERED: INFLUENZA VACCINE (for 6+ mo) 0.5 ML DOSE IMVAC ONE (09:00)
[2021-06-20] MEDS: levoFLOXacin 750 MG TAB PO SCH (09:24)
[2021-06-20] MEDS: FUROSEMIDE 20 MG TABLET PO SCH (09:25)
[2021-06-20] MEDS: METOPROLOL TAR 25 MG TAB PO SCH ×2 (09:25→20:43)
[2021-06-20] MEDS: DULOXETINE 30 MG CAP PO SCH (09:26)
[2021-06-20] MEDS: ASPIRIN EC 81 MG TAB PO SCH (09:26)
[2021-06-20] MEDS: ATORVASTATIN 80 MG TAB PO SCH (09:26)
[2021-06-20] MEDS: ENOXAPARIN 40 MG/0.4 ML SQ SCH (09:27)
[2021-06-20 09:47] LABS: Blood Morphology Comment NOT SEEN (NOT SEEN); Platelet Estimate ADEQ; White Blood Cell Scan OK (OK)
--- NOTE | 2021-06-20 14:56 | P.PN ---
Subjective Date of Service: 06/20/21 Chief Complaint: DYSPNEA Subjective: Improving HE IS LOT BETTER. HE DENIES PAIN. HE IS WEAK AND WILL NEED ONE MORE DAY HE HAD RECURRENT ADMISSIONS AND HE GOT WORSE AFTER HE GOT BETTER AFTER LAST ADMISSION. Review of Systems 10-point ROS is otherwise unremarkable General: Weakness, Malaise Respiratory: Shortness of Breath Physical Examination - Vital Signs Temperature: 98.3 F Blood Pressure: 138/67 Pulse: 82 Respirations: 21 Pulse Ox (%): 98 - Physical Exam General: Oriented x3, Cachectic, Mild distress HEENT: Atraumatic, PERRLA, EOMI Neck: Supple, JVD not distended Respiratory: Clear to auscultation bilaterally, Normal air movement Cardiovascular: Regular rate/rhythm, Normal S1 S2 Gastrointestinal: Normal bowel sounds, No tenderness Musculoskeletal: No tenderness Integumentary: No rashes Neurological: Normal speech, Normal tone, Normal affect Lymphatics: No axilla or inguinal lymphadenopathy - Studies Medications List Reviewed: Yes Assessment And Plan - Current Problems (Diagnosis) (1) COPD (chronic obstructive pulmonary disease) Current Visit: No Status: Chronic Plan: IV STEROIDS NEBS DR BLANCO PROGNOSIS IS GUARDED CT ANGIO CHEST HE IS BETTER BUT NOT CLOSE TO HIS BASLINE YET. HE IS NOT ABLE TO TOLERATE ALBUEROL. HE DOES TOLERATE XOPENEX. XOPENEX IS NOT AVAILABLE ON OUTPATIENT BASIS. ONE MORE DAY HERE WILL SUFFICE FOR HIM TO TRANSITION TO ORAL DRUGS AND INHALERS. HE ALREADY HAD NEBULIZER AT HOME FOR ATROVENT. Qualifiers: COPD type: COPD with acute exacerbation Qualified Code(s): J44.1 - Chronic obstructive pulmonary disease with (acute) exacerbation
[2021-06-20] MEDS ORDERED: ROPINIROLE HCL 0.25 MG TAB PO SCH (21:00)
[2021-06-21] MEDS: METHYLPREDNISOLONE 40 MG INJ IV SCH ×2 (00:52→05:35)
[2021-06-21] MEDS: LEVALBUTEROL 0.63 MG/3 ML NEB NEB SCH ×2 (01:20→08:20)
[2021-06-21] MEDS: IPRATROPIUM BROM 0.5MG/2.5ML NEB SCH ×2 (01:20→08:20)
[2021-06-21] MEDS: ALBUTEROL 2.5 MG/3 ML NEB SOL NEB SCH ×2 (02:00→08:00)
[2021-06-21 08:04] VITALS: BP 128/76; TEMP 97.7
--- NOTE | 2021-06-21 08:24 | EKG ---
Test Date: 2021-06-19 Test Time: 08:58:35 [employer] Dispatcher: SUAD MEASUREMENT RESULTS: Intervals: Rate: 97 AL: QRSD: 72 QT: 344 QTc: 436 [place]: P: AL: QRS: 94 T: 75 INTERPRETIVE STATEMENTS: Atrial fibrillation with premature ventricular or aberrantly conducted complexes Rightward axis Possible Anterior infarct, age undetermined Abnormal ECG Compared to ECG 06/14/2021 18:03:52 No significant changes Electronically Signed On 06-21-21 08:20:56 CDT by Dustin Hutchins
[2021-06-21] MEDS: DULOXETINE 30 MG CAP PO SCH (09:49)
[2021-06-21] MEDS: ENOXAPARIN 40 MG/0.4 ML SQ SCH (09:49)
[2021-06-21] MEDS: METOPROLOL TAR 25 MG TAB PO SCH (09:50)
[2021-06-21] MEDS: ATORVASTATIN 80 MG TAB PO SCH (09:50)
[2021-06-21] MEDS: ASPIRIN EC 81 MG TAB PO SCH (09:50)
[2021-06-21] MEDS: FUROSEMIDE 20 MG TABLET PO SCH (09:51)
[2021-06-21] MEDS: levoFLOXacin 750 MG TAB PO SCH (09:51)
[2021-06-21 10:33] VITALS: O2SAT 96
--- NOTE | 2021-06-21 13:32 | P.DS ---
Admission Date: 06/20/21 Discharge Date: 06/21/21 Disposition: ROUTINE DISCHARGE Discharge Condition: FAIR Reason for Admission: DYSPNEA - Problems (1) COPD (chronic obstructive pulmonary disease) Status: Chronic Qualifiers: COPD type: COPD with acute exacerbation Qualified Code(s): J44.1 - Chronic obstructive pulmonary disease with (acute) exacerbation Brief History of Present Illness: MR. PACKER IS COPD PATIENT WHO RECENTLY HAD FLU. HE WAS GOOD UNTIL LAST NIGHT. HE GOT DYSPNEA AND WAS BROUGHT HERE. I SAW HIM IN ER JUST HE CAME IN I WAS SEEING SOME OTHER PATIENT OF MINE. Hospital Course: RAGHU IS DOING GREAT. ONCE AGAIN HE WANTS TO BE SENT WITHIN ONE HOUR. I CALLED IN DEXAMETHASONE TAPER AND REQUIP FROM OFFICE. HE HAS COPD AND HE UNDERSTANDS OFF AND ON HE WILL FLARE UP. Vital Signs/Physical Exam: Temp Pulse Resp BP Pulse Ox 97.7 F 107 H 18 128/76 97 06/21/21 08:00 06/21/21 09:51 06/21/21 08:00 06/21/21 09:51 06/21/21 08:00 Laboratory Data at Discharge: WBC 14.80 K/uL (4.3-10.9) H D 06/20/21 05:20 Hgb 13.8 g/dL (13.6-17.9) 06/20/21 05:20 Hct 41.6 % (39.6-49.0) 06/20/21 05:20 Plt Count 111 K/uL (152-406) L D 06/20/21 05:20 PT 10.3 SECONDS (9.5-12.5) 06/19/21 09:00 INR 0.94 06/19/21 09:00 APTT 24.0 SECONDS (24.3-36.9) L 06/19/21 09:00 Sodium 138 mmol/L (136-145) 06/20/21 05:20 Potassium 4.2 mmol/L (3.5-5.1) 06/20/21 05:20 BUN 15 mg/dL (7-18) 06/20/21 05:20 Creatinine 1.00 mg/dL (0.55-1.3) 06/20/21 05:20 Glucose 178 mg/dL (74-106) H 06/20/21 05:20 Magnesium 2.2 mg/dL (1.8-2.4) 06/19/21 09:00 Total Bilirubin 1.0 mg/dL (0.2-1.0) 06/19/21 09:00 AST 31 U/L (15-37) 06/19/21 09:00 ALT 43 U/L (12-78) 06/19/21 09:00 Alkaline Phosphatase 93 U/L (45-117) 06/19/21 09:00 Lipase 129 U/L (73-393) 06/19/21 09:00 Home Medications: Aspirin [Aspirin EC 81 MG] 81 mg PO DAILY 06/15/21 Duloxetine HCl [Cymbalta] 30 mg PO DAILY 06/15/21 Furosemide [Lasix] 20 mg PO DAILY 06/15/21 Metoprolol Tartrate 12.5 mg PO BID 06/15/21 dexAMETHasone [Decadron*] 4 mg PO BID #30 tab 06/16/21 Atorvastatin Calcium [Lipitor] 80 mg PO DAILY 06/19/21 Ipratropium Neb [Atrovent*] 1 vial NEB Q6HR 06/19/21 Followup: Jose Medina MD [Primary Care Provider] -
== END 2021-06-21 10:00 | disposition home or self-care (01) | DRG 190 ==
LOC: ER 08:43 → ERHOLD 09:12 → 2ND 12:13 → OBSVTOIN 06-20 17:30
PROVIDERS: ADMIT Internal Medicine; ATTEND Internal Medicine
DX: J44.1 Chronic obstructive pulmonary disease with (acute) exacerbation (principal); J96.01 Acute respiratory failure with hypoxia; I48.91 Unspecified atrial fibrillation; Z20.822 Contact with and (suspected) exposure to COVID-19; Z79.82 Long term (current) use of aspirin; Z95.1 Presence of aortocoronary bypass graft
CPT/HCPCS: 36415; 71045; 71275; 80048; 80076; 82550; 82553; 82805; 83690; 83735; 83880; 85025; 85610; 85730; 87040; 93005; 94640; 94760; 96374; 96375; 99284; G0378; J0456; J1650; J2920; J2930; J7050; Q9967; U0003

== ENCOUNTER 2022-11-23 16:03 | Emergency (ER) | payer OTHER, BC ==
--- OUTSIDE RECORDS SUMMARY | 2022-11-23 16:07 | XMS REPORT | Continuity of Care Document ---
:1935 Author Organization [facility] t Address [address] [place] [address] [address] [place] [address] Care Team Providers Name Role Phone CRISTINA PRIEST Primary Care Physician NADEEM Mccauley Attending Clinician Unavailable NADEEM DE LA ROSA Admitting Clinician Unavailable Payers Payer Name Policy Type Policy Number Effective Date Expiration Date S ource MEDICARE A B [id number] [place] [id number] 2001 OS 00:00:00 Problems Condition Condition Condition Status Onset Resolution Last Treating Co mments Source Name Details Category Date Date Treatment Clinician Date Coronary Coronary Disease [facility] disease disease [facility]:00[facility] 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 Vaca Est[facility] Acute Acute Disease Active [facility] respirator respirator Millie kes y y Medical insufficie insufficie Ce nter ncy ncy Acute Acute Disease Active [facility] blood loss blood loss Millie kes anemia anemia [facility] Acute Acute Disease Active [facility] post-opera post-opera Millie kes tive pain tive pain [facility] Allergies, Adverse Reactions, Alerts Allergy Allergy Status Severity Reaction(s) Onset Inactive Treating Comm ents Source Name Type Date Date Clinician NO KNOWN Allergy Active [facility] ALLERG[facility] Social History Social Habit Start Date Stop Date Quantity Comments Source Sex Assigned At [address] [address] Millie kes 00:00:00 00:00:00 [facility] Medications Ordered Filled Start Stop Current Ordering Indication Dosage Frequency Signature Comments Components Source Medication Medication Date Date Medication? Clinician (SIG) Name Name potassium 2019-04 Yes 20meq QD Take [address] chloride SA 2-16 mEq [facility] (K-DUR,KLOR 11:04: mouth Medic al -CON) 20 11 daily. Center MEQ tablet furosemide 2019-04 Yes 40mg Q.5D Take [address] (LASIX) 40 2-16 by mouth 2 Dominik es MG tablet 11:04: (two) Medical 11 times Center daily. aspirin 81 2019-04 Yes 81mg QD Take 1 [facility] MG EC 2-07 tablet (81 [facility] tablet 00:00: mg total) Medica l 00 by mouth Center daily. tiotropium 2019-04 Yes 18ug QD Inhale [address] (SPIRIVA) 2-07 capsule [facility] 18 mcg 00:00: (18 mcg Medical inhalation 00 total) by Cent er capsule mouth via inhaler daily. amiodarone 2019-04 Yes 200mg Q.5D Take [address] (PACERONE) 2-06 tablet [facility] 200 MG 00:00: (200 mg Medical tablet 00 total) by Center mouth 2 (two) times daily. atorvastati 2019-04 Yes 80mg QD Take [address] n (LIPITOR) 2-06 tablet (80 Millie kes 80 MG 00:00: mg total) Medical tablet 00 by mouth Center nightly. metoprolol 2019-04 Yes 50mg Q.5D Take 1 [facility] tartrate 2-06 tablet (50 [facility] (LOPRESSOR) 00:00: mg total) M edical 50 MG 00 by mouth 2 Center tablet (two) times daily. rivaroxaban 2019-04 Yes 15mg Take [address] (XARELTO) 2-06 tablet (15 Luke s 15 mg Tab 00:00: mg total) Med ical tablet 00 by mouth Center daily with dinner. fluticasone 2019-04 Yes 1{puff} Inhale [address] propion-ming 2-06 puff by [facility] meteroL 00:00: mouth via Medic al (Advair 00 inhaler Center Diskus) every 12 250-50 (twelve) mcg/dose hours. diskus inhaler Vital Signs Vital Name Observation Time Observation Value Comments Source WEIGHT 2020-03-07 04:00:00 75.161 kg WEIGHT 2020-03-06 04:40:00 75.388 kg WEIGHT 2020-03-05 03:58:00 75.796 kg WEIGHT 2020-03-18 10:57:00 74.844 kg WEIGHT 2020-03-07 04:00:00 75.161 kg WEIGHT 2020-03-06 04:40:00 75.388 kg WEIGHT 2020-03-05 03:58:00 75.796 kg Procedures This patient has no known procedures. Plan of Care Planned Activity Planned Date Details Comments Source Future Scheduled 2022-12-02 Influenza Vaccine (#1) [facility] 00:00:00 [code = Influenza Medical Ce nter Vaccine (#1)] Future Scheduled 2022-04-[address] [facility] Test 00:00:00 (12+) [code = Medical Center DEPRESSION SCREENING (12+)] Future Scheduled 2022-04-03 FALLS RISK SCREENING [facility] Test 00:00:00 [code = FALLS RISK Medical C enter SCREENING] Future Scheduled 2002-04-[address] [facility] Test 00:00:00 WELLNESS (YEAR 2 or Medical Center FIRST YEAR if no IPPE) [code = MEDICARE ANNUAL WELLNESS (YEAR 2 or FIRST YEAR if no IPPE)] Future Scheduled 1986 SHINGLES VACCINES ([address] [facility] Test 00:00:00 of 2) [code = SHINGLES Medic al Center VACCINES (1 of 2)] Future Scheduled 1955 DTAP/TDAP/TD VACCINES [facility] Test 00:00:00 (1 - Tdap) [code = Medical C enter DTAP/TDAP/TD VACCINES (1 - Tdap)] Future Scheduled [address] [facility] Test 00:00:00 Counseling and Medical Cente r Screening (12+) [code = Tobacco Cessation Counseling and Screening (12+)] Future Scheduled 1942 PNEUMOCOCCAL 65+ Y[facility] Test 00:00:00 (1 - PCV) [code = Medical Ce nter PNEUMOCOCCAL 65+ YRS (1 - PCV)] Future Scheduled 1936 COVID-19 VACCINE (#1) [facility] Test 00:00:00 [code = COVID-[address] VACCINE (#1)] Encounters Start End Encounter Admission Attending Care Care Encounter Source Date/Time Date/Time Type Type Clinicians Facility Department ID 2021-01-08 Inpatient ER HIRA DE LA ROSA Surgery [id number] [facility] 18:20:23 NADEEM 2020-03-18 2020-03-18 Outpatient HIRA SANTIAGO [facility] [id number] [facility] 00:00:00 00:00:00 NADEEM 2020-03-16 2020-03-16 Outpatient HIRA SANTIAGO [facility] [id number] [facility] 00:00:00 00:00:00 NADEEM Results Test Description Test Time Test Comments Results Result Comments Source TISSUE EXAM 2020-03-09 Surgical Pathology 16:17:00 Report Case: [id number] Authorizing Provider: Nadeem De La Rosa, Collected: 03/03/2020 03:01 PM Ordering Location: [facility] Received: 03/04/2020 08:21 AM PERIOPERATIVE SERVICES Pathologist: Tre Eugene MD Specimen: Chest, Mole in chest SKIN, CHEST, EXCISION: - SEBORRHEIC KERATOSIS, IRRITATED AND INFLAMED Signing Pathologist Direct Phone Line: [phone] ically signed by Tre Eugene MD on 03/09/2020 at 4:17 [id number] artery disease with angina pectoris, unspecified vessel or lesion type, unspecified whether lytton or transplanted heart ChestReceived in formalin labeled [...] 135 mg/dL 70-110 H : TESTED AT [facility] [address] [facility] (test code = 1538) [facility] X, [address]: Digital Data Analyst/Techni suma ID = [id number] for MO DUGGAN BASIC METABOLIC [id number] 07:18:00 Test Item Value Reference Range Interpretation [...] S NOT APPLICABLE FOR DIALYSIS PATIEN TS. Digital Data Analyst ID - FIDEL [id number] 07:18:00 Test Item Value Reference Range Interpretation Comments MAGNESIUM (BEAKER) (test code = 1.7 mg/dL 1.6-2.6 627) Digital Data Analyst ID - FIDEL [id number] 07:18:00 Test Item Value Reference Range Interpretation Comments PHOSPHORUS (BEAKER) (test code = 2.7 mg/dL 2.3-4.7 604) Digital Data Analyst ID - FIDEL LPOCT-GLUCOSE [id number] 07:02:00 Test Item Value Reference Range Interpretation Comments POC-GLUCOSE METER 116 mg/dL 70-110 H : TESTED A T [facility] 6720 (BEAKER) (test code = [place], 1538) [address]: Digital Data Analyst/Techni suma ID = [id number] for FLOYD LIN POCT-GLUCOSE [id number] 07:01:00 Test Item Value Reference Range Interpretation Comments POC-GLUCOSE METER 124 mg/dL 70-110 H : TESTED A T [facility] 6720 (BEAKER) (test code = [place] [facility], 1538) [address]: Digital Data Analyst/Techni suma ID = [id number] for FLOYD LIN CBC (HEMOGRAM ONLY)2020-03-08 06:44:00 [...] 0-0 (BEAKER) (test code = 413) POCT-GLUCOSE [id number] 21:50:00 Test Item Value Reference Range Interpretation Comments POC-GLUCOSE METER 122 mg/dL 70-110 H : TESTED A T [facility] 6720 (BEAKER) (test code = [place] [facility], 1538) [address]: Digital Data Analyst/Techni suma ID = [id number] for PE RALES, EDGARDO CT, CHEST, WITHOUT [id number] 09:41:00Unlisted Reason for Exam - Click Yes and Enter Reason Below->No [facility] : 1935 Sex: MFINAL REPORT CT of the chest, without contrast, 03/07/2020. History: Shortness of breath. Posterior cardiovascular surgery. Comparison: Chest x-ray 03/05/2020, 03/03/2020. Technique: Multidetector CT scanning of the chest was performed from the level of the thoracic inlet to the upper abdomen without IV or oral contrast. This exam was performed according to our departmental dose-optimization program which includes automated exposure control, adjustment of the mA and/or kV according to patient size and/or use of iterative reconstruction technique. Discussion: Evaluation of the heart andmediastinal structures is limited secondary to lack of intravenous contrast. The heart, aorta, and pulmonary vessels are normal in size. Median sternotomy wires and post ACB findings are noted. There is no axillary or mediastinal adenopathy. The central airways are patent. 2 areas of linear opacities are present in the left lower lobe suggestive of postsurgical change versus prior chest tube tract. Sm all bilateral pleural effusions are present, left slightly more than right. Bibasilar dependent atelectasis is noted. A calcified granuloma is present in the left lower lobe. There is no evidence of consolidation or suspicious nodule. The soft tissues and osseous structures are unremarkable. Limited evaluation of the upper abdomen shows normal adrenal glands. IMPRESSION:Bibasilar atelectasis and small bilateral pleural effusions. No evidence of CHF or pneumonia. Signed: Nadeem Moyaeport Verified Date/Time: 03/07/2020 09:41:32 Reading Location: [address] Ortho Consult Reading Room POCT-GLUCOSE [id number] 08:43:00 Test Item Value Reference Range Interpretation Comments POC-GLUCOSE METER 110 mg/dL 70-110 : TESTED A T [facility] 6720 (BEAKER) (test code = [place], 1538) [address]: Digital Data Analyst/Techni suma ID = [id number] for FLOYD LIN BASIC METABOLIC [id number] 05:39:00 Test Item Value Reference Range Interpretation [...] S NOT APPLICABLE FOR DIALYSIS PATIEN TS. Digital Data Analyst ID - [id number] 05:39:00 Test Item Value Reference Range Interpretation Comments MAGNESIUM (BEAKER) (test code = 1.7 mg/dL 1.6-2.6 627) Digital Data Analyst ID - [id number] 05:39:00 Test Item Value Reference Range Interpretation Comments PHOSPHORUS (BEAKER) (test code = 2.5 mg/dL 2.3-4.7 604) Digital Data Analyst ID - EDASICBC (HEMOGRAM ONLY)2020-03-07 05:00:00 Test [...] (test code = 413) BUN AND CREATININE [id number] 17:55:00 Test Item Value Reference Range Interpretation Comments BLOOD UREA NITROGEN 12 mg/dL 7-21 (BEAKER) (test code = 354) CREATININE (BEAKER) 0.84 mg/dL 0.57-1.25 (test code = 358) BUN/CREAT RATIO 14 For a normal (BEAKER) (test code individu al on a = 5980515765) normal diet, t he reference inter karol for the mass ra casie ranges between 12:1 and 20:1 (BUN i n mg/dL/creatinin e in mg/dL) EGFR (BEAKER) (test 87 mL/min/1.73 ESTIMA LULU GFR IS code = 1092) sq m NOT ACCURATE CREATININE CLEARANCE IN PREDICTING GLOMERULAR FILTRATION RATE . ESTIMATED GFR I S NOT APPLICABLE FOR DIALYSIS PATIEN TS. Digital Data Analyst ID - ADMINPOCT-GLUCOSE [id number] 16:29:00 Test Item Value Reference Range Interpretation Comments POC-GLUCOSE METER 139 mg/dL 70-110 H : [facility] (BE[facility]ER) (test code = [facility], 1538) [address]: Digital Data Analyst/Techni suma ID = [id number] for Vineet Roxanne POCT-GLUCOSE [id number] 12:23:00 Test Item Value Reference Range Interpretation Comments POC-GLUCOSE METER 143 mg/dL 70-110 H : TESTED A T [facility] 6720 (BEAKER) (test code = [facility], 1538) [address]: Digital Data Analyst/Techni suma ID = [id number] for Vineet, Roxanne POCT-GLUCOSE [id number] 08:52:00 Test Item Value Reference Range Interpretation Comments POC-GLUCOSE METER 132 mg/dL 70-110 H : TESTED A T [facility] 6720 (BEAKER) (test code = [facility], 1538) [address]: Digital Data Analyst/Techni suma ID = [id number] for Vineet, Roxanne BASIC METABOLIC [id number] 06:11:00 Test Item Value Reference Range Interpretation [...] S NOT APPLICABLE FOR DIALYSIS PATIEN TS. Digital Data Analyst ID - [id number] 06:11:00 Test Item Value Reference Range Interpretation Comments PHOSPHORUS (BEAKER) (test code = 2.1 mg/dL 2.3-4.7 L 604) Digital Data Analyst ID - ADMINCBC W/PLT COUNT & AUTO [id number] 05:34:00 Test Item Value Reference Range Interpretation [...] PERCENT (BEAKER) (test code = 2801) POCT-GLUCOSE [id number] 22:09:00 Test Item Value Reference Range Interpretation Comments POC-GLUCOSE METER 127 mg/dL 70-110 H : TESTED A T [facility] 6720 (BEAKER) (test code = [facility], 1538) [address]: Digital Data Analyst/Techni suma ID = [id number] for Re yes, Sairy POCT-GLUCOSE [id number] 17:18:00 Test Item Value Reference Range Interpretation Comments POC-GLUCOSE METER 129 mg/dL 70-110 H : TESTED A T [facility] 6720 ([facility]) (test code = [facility], 1538) [address]: Digital Data Analyst/Techni suma ID = [id number] for GO MEZ (V), SULEYDI POCT-GLUCOSE [id number] 12:42:00 Test Item Value Reference Range Interpretation Comments POC-GLUCOSE METER 151 mg/dL 70-110 H : TESTED A T [facility] 6720 ([facility] (test code = [facility], 1538) [address]: Digital Data Analyst/Techni suma ID = [id number] for OR STONEY RAZO RAD, CHEST, 1 VIEW, NON [id number] 10:28:00Reason for exam:->shortness of breathShould this be performed at the bedside?->Yes [facility] 1935 Sex: MFINAL REPORT INDICATION: shortness of breath COMPARISON: March 04, 2020 TECHNIQUE:Single frontal view of the chest. FINDINGS: Lungs and pleura: Clear lungs. No effusion.Heart and mediastinum: Normal heart size. Unremarkable mediastinal contours.Osseous structures: No acute abnormality.Other: None. IMPRESSION: No acute intrathoracic abnormality. Signed: Eddie Khalileport Verified Date/Time: 03/05/2020 10:28:06 Reading Location: [facility] Radiology Reading Room POCT-GLUCOSE [id number] 08:12:00 Test Item Value Reference Range Interpretation Comments POC-GLUCOSE METER 100 mg/dL 70-110 : TESTED A T [facility] 6720 (BEAKER) (test code = [place], 1538) [address]: Digital Data Analyst/Techni suma ID = [id number] for OR STONEY RAZO BASIC METABOLIC [id number] 06:22:00 Test Item Value Reference Range Interpretation [...] S NOT APPLICABLE FOR DIALYSIS PATIEN TS. Digital Data Analyst ID - JEFRY [id number] 06:22:00 Test Item Value Reference Range Interpretation Comments MAGNESIUM (BEAKER) (test code = 1.9 mg/dL 1.6-2.6 627) Digital Data Analyst ID - JEFRY [id number] 06:22:00 Test Item Value Reference Range Interpretation Comments PHOSPHORUS (BEAKER) (test code = 2.0 mg/dL 2.3-4.7 L 604) Digital Data Analyst ID - JEFRY MCBC (HEMOGRAM ONLY)2020-03-05 05:14:00 [...] WBC 0-0 (test code = 413) POCT-GLUCOSE [id number] 21:40:00 Test Item Value Reference Range Interpretation Comments POC-GLUCOSE METER 134 mg/dL 70-110 H : TESTED A T [facility] 6720 (BEAKER) (test code = [employer] [facility], 1538) [address]344: Digital Data Analyst/Techni suma ID = [id number] for Re yes, Sairy POCT-GLUCOSE [id number] 17:30:00 Test Item Value Reference Range Interpretation Comments POC-GLUCOSE METER 117 mg/dL 70-110 H : TESTED A T [facility] 6720 (BEAKER) (test code = [facility] [employer] [facility], 1538) 69[address]: Digital Data Analyst/Techni suma ID = [id number] for MU RPHY, BERNY [id number] 11:56:00 Test Item Value Reference Range Interpretation Comments MAGNESIUM (BEAKER) (test code = 2.1 mg/dL 1.6-2.6 627) Digital Data Analyst ID - AAHAMIDPOCT-GLUCOSE [id number] 10:28:00 Test Item Value Reference Range Interpretation Comments POC-GLUCOSE METER 136 mg/dL 70-110 H : TESTED A T [facility] 6720 (BEAKER) (test code = [facility], 1538) [address]71: Digital Data Analyst/Techni suma ID = [id number] for MU RPHY, BERNY LACTIC ACID, [id number] 05:34:00 Test Item Value Reference Range Interpretation Comments LACTATE BLOOD ARTERIAL (2) 1.2 mmol/L 0.5-2.2 (BEAKER) (test code = 2874) Digital Data Analyst ID - EDASIBLOOD GAS, [id number] 05:19:00 Test Item Value Reference Range Interpretation [...] (BEAKER) (test code = 1819) 36.0 POCT-GLUCOSE [id number] 05:17:00 Test Item Value Reference Range Interpretation Comments POC-GLUCOSE METER 168 mg/dL 70-110 H : TESTED A T [facility] 6720 (BEAKER) (test code = [facility], 1538) 99980: Digital Data Analyst/Techni suma ID = [id number] for Tiara mcwilliamsno, Jv RAD, CHEST, 1 VIEW, NON [id number] 03:28:00while patient is intubated or has chest tubes.Reason for exam:->Status post CV SurgeryShould thisbe performed at the bedside?->Yes [facility] 1935 Sex: MFINAL REPORT CLINICAL INDICATION: Postop Comparison: 03/03/2020 The examination is limited by exclusion of the left costophrenic sulcus. The cardiomediastinal contours are stable. The lung volumes are stable after extubation. There is no focal consolidation, pneumothorax, large pleural e ffusion or evidence of overt pulmonary edema. Remaining support lines are stable. Signed: Jamil Cox MDReport Verified Date/Time: 03/04/2020 03:28:16 BASIC METABOLIC [id number] 03:25:00 Test Item Value Reference Range Interpretation [...] S NOT APPLICABLE FOR DIALYSIS PATIEN TS. Digital Data Analyst ID - [id number] 03:09:00 Test Item Value Reference Range Interpretation Comments MAGNESIUM (BEAKER) (test code = 1.8 mg/dL 1.6-2.6 627) Digital Data Analyst ID - [id number] 03:09:00 Test Item Value Reference Range Interpretation Comments PHOSPHORUS (BEAKER) (test code = 3.1 mg/dL 2.3-4.7 604) Digital Data Analyst ID - EDASICBC (HEMOGRAM ONLY)2020-03-04 02:54:00 Test [...] 0-0 (test code = 413) LACTIC ACID, [id number] 00:26:00 Test Item Value Reference Range Interpretation Comments LACTATE BLOOD ARTERIAL (2) 1.6 mmol/L 0.5-2.2 (BEAKER) (test code = 9127) Digital Data Analyst ID - JEFRY MPOCT-GLUCOSE [id number] 00:19:00 Test Item Value Reference Range Interpretation Comments POC-GLUCOSE METER 171 mg/dL 70-110 H : TESTED Wanda Allan [facility] 6720 (BEAKER) (test code = [place], 1538) [address]: Digital Data Analyst/Techni suma ID = [id number] for Jv Domingo BLOOD GAS, [id number] 00:16:00 Test Item Value Reference Range Interpretation [...] (test code = 1819) 36.0 BLOOD GAS, [id number] 21:27:00 Test Item Value Reference Range Interpretation [...] (test code = 1819) 40.0 LACTIC ACID, [id number] 19:55:00 Test Item Value Reference Range Interpretation Comments LACTATE BLOOD 2.3 mmol/L 0.5-2.2 H Specimen sligh tly ARTERIAL (2) (BEAKER) hemoly zed (test code = 2874) Digital Data Analyst ID - BSCBC W/PLT COUNT & AUTO [id number] 19:39:00 Test Item Value Reference Range Interpretation [...] PERCENT (BEAKER) (test code = 2801) CALCIUM, [id number] 19:36:00 Test Item Value Reference Range Interpretation Comments CALCIUM IONIZED (BEAKER) (test 1.06 mmol/L 1.12-1.27 L code = 698) PH, BLOOD (BEAKER) (test code = 7.42 1810) BLOOD GAS, [id number] 19:36:00 Test Item Value Reference Range Interpretation [...] (BEAKER) (test code = 1819) 40.0 GLUCOSE-STAT [id number] 19:36:00 Test Item Value Reference Range Interpretation Comments GLUCOSE RANDOM (BEAKER) (test code 148 mg/dL 70-110 H = 652) HGB/HCT (H&H) - STAT [id number] 19:36:00 Test Item Value Reference Range Interpretation Comments HEMOGLOBIN (BEAKER) (test code = 12.0 GM/DL 13.0-16.8 L 410) HEMATOCRIT (BEAKER) (test code = 35.0 % 40.0-50.0 L 411) SODIUM NA-STAT [id number] 19:35:00 Test Item Value Reference Range Interpretation Comments SODIUM (BEAKER) (test code = 381) 135 meq/L 136-145 L POTASSIUM-STAT [id number] 19:35:00 Test Item Value Reference Range Interpretation Comments POTASSIUM (BEAKER) (test code = 4.2 meq/L 3.6-5.5 379) SARS-COV2/RT-PCR ([facility])2020-03-03 18:50:00 Test Item Value Reference Range Interpretation Comments SARS-COV2/RT-PCR (test Negative Not Detected, Negative, code = 5504492) See external report for linked test SARS-COV-2 PERFORMING LAB [facility] (test code = 3335141) Negative result for this test determines that SARS-CoV-2 RNA was not present in the specimen above the Limit of Detection (LOD). However, Negative results do not preclude SARS-CoV-2 infection and should not be used as the sole basis for treatment or patient management decisions. Negative results must be combined with clinical observations, patient history, and [...] a nasopharyngeal swab specimen collected from individuals suspected of COVID-19 by their healthcare provider.This test [...] justifying the authorization of the emergency use ofin vitro diagnostic tests for detection and/or diagnosis of COVID-19 is terminated under Section 564(b)(2) of the Act or the EUA is revoked under Section 564(g) of the Act.Fact Sheet for Healthcare Prov iders:https://www.[employer].Lánzanos/sites/default/files/product/documents/Fact_Sheet_HC _Ifpwjpmil_Dzvr_YWSS-IwR-9.pdfFact Sheet for Healthcare Patients:https://www.[employer]án[employer]anos/sites/default/files/product/docume nts/Uxxl_Hypmv_Xnnujqaa_Gbbu_DNSJ-VqR-3.pdfPerforming Laboratory:[facility], [place] [id number] 18:18:00 Test Item Value Reference Range Interpretation [...] thrombosis and/or pulmonary embolus.HIGH RISK: Target INR is 2.5-3.5 for patients wiht mechanical heart valves.[id number] 18:02:00 Test Item Value Reference Range Interpretation Comments MAGNESIUM (BEAKER) 1.9 mg/dL 1.6-2.6 Specimen slightly (test code = 627) hemolyzed Digital Data Analyst ID - [id number] 18:02:00 Test Item Value Reference Range Interpretation Comments PHOSPHORUS (BEAKER) 3.3 mg/dL 2.3-4.7 Specimen slightly (test code = 604) hemolyzed Digital Data Analyst ID - [id number] 18:00:00 Test Item Value Reference Range Interpretation Comments MAGNESIUM (BEAKER) 2.3 mg/dL 1.6-2.6 Specimen slightly (test code = 627) hemolyzed Digital Data Analyst ID - [id number] 18:00:00 Test Item Value Reference Range Interpretation Comments PHOSPHORUS (BEAKER) 2.6 mg/dL 2.3-4.7 Specimen slightly (test code = 604) hemolyzed Digital Data Analyst ID - BSBASIC METABOLIC [id number] 18:00:00 Test Item Value Reference Range Interpretation [...] S NOT APPLICABLE FOR DIALYSIS PATIEN TS. Digital Data Analyst ID - BSRAD, CHEST, 1 VIEW, NON [id number] 18:00:00Reason for exam:- >s/p cv [facility] 1935 Sex: MFINAL REPORT CHEST ONE VIEW HISTORY: Status post cardiovascular surgery COMPARISON: None FINDINGS: Single portable AP examination of the chest was performed. Sternotomy wires are present. An endotracheal tube is present, [...] No pleural effusions are visualized. Signed: Katie Woods MDReport Verified Date/Time: 03/03/2020 18:00:39 Reading Location: [facility] C013T Transitional Reading Room IC ACID, [id number] 17:56:00 Test Item Value Reference Range Interpretation Comments LACTATE BLOOD 1.2 mmol/L 0.5-2.2 Specimen [facility] ARTERIAL (2) (BEAKER) hemoly zed (test code = 2874) Digital Data Analyst ID - ADMINPROTHROMBIN [id number] 17:50:00 Test Item Value Reference Range Interpretation Comments PROTIME (BEAKER) (test code = 17.5 seconds 11.9-14.2 H 759) INR (BEAKER) (test code = 370) 1.48 <=5.90 Effective 08/29/2018: PT Reference Range ChangeNew: 11.9-14.2 Previous: 11.7- 14.7RECOMMENDED COUMADIN/WARFARIN INR THERAPY RANGESSTANDARD DOSE: 2.0-3.0 Includes: PROPHYLAXIS for venous thrombosis, systemic embolization; TREATMENT for venous thrombosis and/or pulmonary embolus.HIGH RISK: Target INR is 2.5-3.5 for patients wiht mechanical heart valves.[id number] 17:50:00 Test Item Value Reference Range Interpretation Comments FIBRINOGEN LEVEL (BEAKER) (test 233 mg/dl 225-434 code = 658) [id number] 17:50:00 Test Item Value Reference Range Interpretation Comments PARTIAL THROMBOPLASTIN TIME 28.3 seconds 22.5-36.0 (BEAKER) (test code = 760) CBC W/PLT COUNT & AUTO [id number] 17:47:00 Test Item Value Reference Range Interpretation [...] PERCENT (BEAKER) (test code = 2801) POTASSIUM-STAT [id number] 17:34:00 Test Item Value Reference Range Interpretation Comments POTASSIUM (BEAKER) (test code = 4.7 meq/L 3.6-5.5 379) OXYGEN SATURATION, [id number] 17:34:00 Test Item Value Reference Range Interpretation Comments O2 SATURATION (MEASURED) (BEAKER) 69.3 % (test code = 1455) CALCIUM, [id number] 17:34:00 Test Item Value Reference Range Interpretation Comments CALCIUM IONIZED (BEAKER) (test 1.34 mmol/L 1.12-1.27 H code = 698) PH, BLOOD (BEAKER) (test code = 7.45 1810) BLOOD GAS, [id number] 17:34:00 Test Item Value Reference Range Interpretation [...] (test code = 1819) 50.0 SODIUM NA-STAT [id number] 17:34:00 Test Item Value Reference Range Interpretation Comments SODIUM (BEAKER) (test code = 381) 133 meq/L 136-145 L GLUCOSE-STAT [id number] 17:34:00 Test Item Value Reference Range Interpretation Comments GLUCOSE RANDOM (BEAKER) (test code 137 mg/dL 70-110 H = 652) HGB/HCT (H&H) - STAT [id number] 17:34:00 Test Item Value Reference Range Interpretation Comments HEMOGLOBIN (BEAKER) (test code = 12.8 GM/DL 13.0-16.8 L 410) HEMATOCRIT (BEAKER) (test code = 38.0 % 40.0-50.0 L 411) [id number] 17:24:00 Test Item Value Reference Range Interpretation Comments ACTIVATED CLOTTING TIME 109 sec : 74 -137 seconds, (BEAKER) (test code = Baseli ne: TESTED AT 441) [facility] [address] [place], [address]: Digital Data Analyst/Techni suma ID = [id number] for [place] [id number] 17:24:00 Test Item Value Reference Range Interpretation Comments ACTIVATED CLOTTING TIME 488 sec : 74 -137 seconds, (BEAKER) (test code = Baseli ne: TESTED AT 441) [address], [address]: Digital Data Analyst/Techni suma ID = [id number] for [place] [id number] 17:24:00 Test Item Value Reference Range Interpretation Comments ACTIVATED CLOTTING TIME 494 sec : 74 -137 seconds, (BEAKER) (test code = Baseli ne: TESTED AT 441) [address], [address]: Digital Data Analyst/Techni suma ID = [id number] for [place] [id number] 17:23:00 Test Item Value Reference Range Interpretation Comments ACTIVATED CLOTTING TIME 527 sec : 74 -137 seconds, (BEAKER) (test code = Baseli ne: TESTED AT 441) [address], [facility] 30: Digital Data Analyst/Techni suma ID = [id number] for [place] PLATELET [id number] 17:14:00 Test Item Value Reference Range Interpretation Comments PLATELET COUNT (BEAKER) (test code 91 K/CU MM 150-450 L = 756) Digital Data Analyst ID - [id number] ID - [id number] 16:59:00 Test Item Value Reference Range Interpretation Comments FIBRINOGEN LEVEL (BEAKER) (test 233 mg/dl 225-434 code = 658) HGB/HCT (H&H) - STAT [id number] 16:40:00 Test Item Value Reference Range Interpretation Comments HEMOGLOBIN (BEAKER) (test code = 10.7 GM/DL 13.0-16.8 L 410) HEMATOCRIT (BEAKER) (test code = 31.0 % 40.0-50.0 L 411) CALCIUM, [id number] 16:39:00 Test Item Value Reference Range Interpretation Comments CALCIUM IONIZED (BEAKER) (test 1.17 mmol/L 1.12-1.27 code = 698) PH, BLOOD (BEAKER) (test code = 7.36 1810) POTASSIUM-STAT [id number] 16:39:00 Test Item Value Reference Range Interpretation Comments POTASSIUM (BEAKER) (test code = 5.0 meq/L 3.6-5.5 379) BLOOD GAS, [id number] 16:39:00 Test Item Value Reference Range Interpretation [...] (test code = 1819) 100.0 SODIUM NA-STAT [id number] 16:39:00 Test Item Value Reference Range Interpretation Comments SODIUM (BEAKER) (test code = 381) 131 meq/L 136-145 L GLUCOSE-STAT [id number] 16:39:00 Test Item Value Reference Range Interpretation Comments GLUCOSE RANDOM (BEAKER) (test code 156 mg/dL 70-110 H = 652) BLOOD GAS, [id number] 16:10:00 Test Item Value Reference Range Interpretation [...] (test code = 1819) 70.0 SODIUM NA-STAT [id number] 16:10:00 Test Item Value Reference Range Interpretation Comments SODIUM (BEAKER) (test code = 381) 129 meq/L 136-145 L POTASSIUM-STAT [id number] 16:10:00 Test Item Value Reference Range Interpretation Comments POTASSIUM (BEAKER) (test code = 5.6 meq/L 3.6-5.5 H 379) GLUCOSE-STAT [id number] 16:10:00 Test Item Value Reference Range Interpretation Comments GLUCOSE RANDOM (BEAKER) (test code 174 mg/dL 70-110 H = 652) HGB/HCT (H&H) - STAT [id number] 16:10:00 Test Item Value Reference Range Interpretation Comments HEMOGLOBIN (BEAKER) (test code = 10.5 GM/DL 13.0-16.8 L 410) HEMATOCRIT (BEAKER) (test code = 31.0 % 40.0-50.0 L 411) POTASSIUM-STAT [id number] 15:42:00 Test Item Value Reference Range Interpretation Comments POTASSIUM (BEAKER) (test code = 4.5 meq/L 3.6-5.5 379) BLOOD GAS, [id number] 15:42:00 Test Item Value Reference Range Interpretation [...] (test code = 1819) 60.0 SODIUM NA-STAT [id number] 15:42:00 Test Item Value Reference Range Interpretation Comments SODIUM (BEAKER) (test code = 381) 130 meq/L 136-145 L GLUCOSE-STAT [id number] 15:42:00 Test Item Value Reference Range Interpretation Comments GLUCOSE RANDOM (BEAKER) (test code 168 mg/dL 70-110 H = 652) HGB/HCT (H&H) - STAT [id number] 15:42:00 Test Item Value Reference Range Interpretation Comments HEMOGLOBIN (BEAKER) (test code = 10.7 GM/DL 13.0-16.8 L 410) HEMATOCRIT (BEAKER) (test code = 31.0 % 40.0-50.0 L 411) BLOOD GAS, [id number] 15:29:00 Test Item Value Reference Range Interpretation [...] (test code = 1819) 80.0 SODIUM NA-STAT [id number] 15:29:00 Test Item Value Reference Range Interpretation Comments SODIUM (BEAKER) (test code = 381) 125 meq/L 136-145 L HGB/HCT (H&H) - STAT [id number] 15:29:00 Test Item Value Reference Range Interpretation Comments HEMOGLOBIN (BEAKER) (test code = 9.8 GM/DL 13.0-16.8 L 410) HEMATOCRIT (BEAKER) (test code = 29.0 % 40.0-50.0 L 411) GLUCOSE-STAT [id number] 15:27:00 Test Item Value Reference Range Interpretation Comments GLUCOSE RANDOM (BEAKER) (test code = 91 mg/dL 70-110 652) POTASSIUM-STAT [id number] 15:27:00 Test Item Value Reference Range Interpretation Comments POTASSIUM (BEAKER) (test code = 3.9 meq/L 3.6-5.5 379) BLOOD GAS, [id number] 14:51:00 Test Item Value Reference Range Interpretation [...] (BEAKER) (test code = 1819) 100.0 CALCIUM, [id number] 14:51:00 Test Item Value Reference Range Interpretation Comments CALCIUM IONIZED (BEAKER) (test 1.11 mmol/L 1.12-1.27 L code = 698) PH, BLOOD (BEAKER) (test code = 7.43 1810) GLUCOSE-STAT [id number] 14:50:00 Test Item Value Reference Range Interpretation Comments GLUCOSE RANDOM (BEAKER) (test code 108 mg/dL 70-110 = 652) SODIUM NA-STAT [id number] 14:50:00 Test Item Value Reference Range Interpretation Comments SODIUM (BEAKER) (test code = 381) 137 meq/L 136-145 POTASSIUM-STAT [id number] 14:50:00 Test Item Value Reference Range Interpretation Comments POTASSIUM (BEAKER) (test code = 3.6 meq/L 3.6-5.5 379) HGB/HCT (H&H) - STAT [id number] 14:50:00 Test Item Value Reference Range Interpretation Comments HEMOGLOBIN (BEAKER) (test code = 14.6 GM/DL 13.0-16.8 410) HEMATOCRIT (BEAKER) (test code = 43.0 % 40.0-50.0 411) COMPREHENSIVE METABOLIC [id number] 14:15:00 Test Item Value Reference Range Interpretation [...] S NOT APPLICABLE FOR DIALYSIS PATIEN TS. Digital Data Analyst ID - [id number] W/PLT COUNT & AUTO [id number] 14:12:00 Test Item Value Reference Range Interpretation [...] PERCENT (BEAKER) (test code = 2801) PROTHROMBIN [id number] 14:09:00 Test Item Value Reference Range Interpretation Comments PROTIME (BEAKER) (test code = 13.1 seconds 11.9-14.2 759) INR (BEAKER) (test code = 370) 1.02 <=5.90 Effective 08/29/2018: PT Reference Range ChangeNew: 11.9-14.2 Previous: 11.7- 14.7RECOMMENDED COUMADIN/WARFARIN INR THERAPY RANGESSTANDARD DOSE: 2.0-3.0 Includes: PROPHYLAXIS for venous thrombosis, systemic embolization; TREATMENT for venous thrombosis and/or pulmonary embolus.HIGH RISK: Target INR is 2.5-3.5 for patients wiht mechanical heart valves.
[2022-11-23 16:39] LABS: Absolute Lymphocytes (CBC) 1.4 K/uL (0.7-4.9); Hematocrit 41.3 % (39.6-49.0); Lymphocytes % 18.4 % (15.3-44.8); MCV 89.3 fL (80-100); MPV 9.9 fL (7.6-11.3); Platelets 155 thou/uL (152-406); RBC Red Blood Cell Count 4.63 M/uL (4.33-5.43)
[2022-11-23 16:44] LABS: Protime INR 1.61
[2022-11-23 16:56] LABS: Albumin 3.7 g/dL (3.4-5.0); Bilirubin Total 0.7 mg/dL (0.2-1.0); Potassium 4.1 mEq/L (3.5-5.1); Protein, Total 7.1 g/dL (6.4-8.2)
--- NOTE | 2022-11-23 17:36 | RAD REPORT ---
EXAM DESCRIPTION: RAD - Chest Single View - 11/23/2022 5:30 pm CLINICAL HISTORY: Cough;Congestion Chest pain. COMPARISON: Chest Single View dated 06/19/2021; Chest Single View dated 06/14/2021; Chest Pa And Lat ( 2 Views) dated 09/17/2020; Chest Pa And Lat (2 Views) dated 04/29/2020 FINDINGS: Portable technique limits examination quality. The lungs are emphysematous but grossly clear. The heart is normal in size. No displaced fractures.St ernotomy. IMPRESSION: No acute intrathoracic process suspected.
[2022-11-23] MEDS ORDERED: NA CHLORIDE 0.9% 1,000 ML ONE (17:37)
--- NOTE | 2022-11-23 18:32 | ER ---
Nurse's Notes [facility] Name: Jacques Brown Age: 87 yrs Sex: Male : 1935 Arrival Date: 11/23/2022 Time: 16:03 Bed 8 Private MD: Diagnosis: SARS-associated coronavirus as the cause of diseases classified elsewhere Presentation: 11/23 16:10 Chief complaint: Patient states: Cough and breathing difficulties since yesterday, nj1 getting worse. Had fever today. Colonoscopy done yesterday. Pressure ulcer on tailbone, getting worse, first noticed about a month ago. Coronavirus screen: Vaccine status: Patient reports receiving the 2nd dose of the covid vaccine. Ebola Screen: Patient denies travel to an Ebola-affected area in the 21 days before illness onset. Initial Sepsis Screen: Does the patient meet any 2 criteria? HR > 90 bpm. No. Patient's initial sepsis screen is negative. Does the patient have a suspected source of infection? No. Patient's initial sepsis screen is negative. Risk Assessment: Do you want to hurt yourself or someone else? Patient reports no desire to harm self or others. Onset of symptoms was November 22, 2022. 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 - Social history:: Smoking status: Patient denies any tobacco usage or history of. Screenin:32 [facility] ED Fall Risk Assessment (Adult) Score/Fall Risk Level 0 - 2 = Low Risk hb Oriented to surroundings, Maintained a safe environment. Abuse screen: Denies threats or abuse. Denies injuries from another. Nutritional screening: No deficits noted. Tuberculosis screening: No symptoms or risk factors identified. Assessment: 16:30 General: Appears in no apparent distress. comfortable, Behavior is calm, cooperative. rs5 Pain: Denies pain. Neuro: Level of Consciousness is awake, alert, obeys commands, Oriented to person, place, time, situation. Cardiovascular: Heart tones S1 S2 Rhythm is regular. Respiratory: Airway is patent Respiratory effort is even, unlabored, Respiratory pattern is regular, symmetrical, Breath sounds are diminished bilaterally. GI: Abdomen is flat, non-distended, Bowel sounds present X 4 quads. : No signs and/or symptoms were reported regarding the genitourinary system. EENT: No signs and/or symptoms were reported regarding the EENT system. Derm: Skin is pink, warm \T\ dry. Musculoskeletal: Range of motion: intact in all extremities. Injury Description: Dime sized pressure injury type 2 noted to [facility] [place], no drainage exudate noted. Pt reports having injury for two months. Denies recent hospitalization or falling. Provider notified. 17:20 Reassessment: Patient and/or family updated on plan of care and expected duration. Pain rs5 level reassessed. Patient is alert, oriented x 3, equal unlabored respirations, skin warm/dry/pink. 17:25 Reassessment: Pt instructed to eat and drink because of blood glucose levels 65. rs5 18:10 Reassessment: Patient and/or family updated on plan of care and expected duration. Pain rs5 level reassessed. Patient is alert, oriented x 3, equal unlabored respirations, skin warm/dry/pink. Patient denies pain at this time. Pt consumed 1/2 peanut butter jelly sandwiches and drank two small juice boxes. 19:04 Reassessment: Patient and/or family updated on plan of care and expected duration. Pain rs5 level reassessed. Patient is alert, oriented x 3, equal unlabored respirations, skin warm/dry/pink. Vital Signs: 16:10 BP 130 / 74; Pulse 104; Resp 20; Temp 99.2(O); Pulse Ox 93% ; Weight 61.23 kg; Height 5 nj1 ft. 11 in. ; 16:30 BP 140 / 90; Pulse 106; Resp 20; Pulse Ox 94% on R/A; nj1 17:10 BP 134 / 71; Pulse 105; Resp 18; Pulse Ox 95% ; hb 18:31 BP 136 / 86; Pulse 105; Resp 24; Pulse Ox 95% ; hb 19:00 BP 134 / 71; Pulse 96; Resp 18; Temp 99.2; Pulse Ox 99% ; rs5 16:10 Body Mass Index 18.83 (61.23 kg, 180.34 cm) nj1 ED Course: 16:05 Patient arrived in ED. mg5 16:08 [facility]el[facility]C [facility] kb 16:08 Akhil Leonard MD is Attending Physician. kb 16:12 Triage completed. nj1 16:13 Arm band placed on right wrist. nj1 16:20 Inserted saline lock: 22 gauge in right antecubital area, using aseptic technique. nj1 ,using aseptic technique. Inserted by Jocelyn [facility]. 16:29 Flu Sent. nj1 16:29 COVID-19 SARS RT PCR Sent. nj1 16:59 Lars London, RN is Primary Nurse. rs5 17:32 Chest Single View XRAY In Process Unspecified. EDMS 18:32 Patient has correct armband on for positive identification. Bed in low position. Call hb light in reach. Provided Education on: . 19:10 No provider procedures requiring assistance completed. IV discontinued, intact, rs5 bleeding controlled, No redness/swelling at site. Pressure dressing applied, Both IV's DC'd. Administered Medications: 17:30 Drug: NS 0.9% IV 1000 ml Route: IV; Rate: 1000 ml; Site: left antecubital; rs5 17:41 Follow up: No adverse reaction noted rs5 18:41 Follow up: IV Status: Completed infusion rs5 Medication: 18:32 VIS not applicable for this client. hb Point of Care Testing: Blood Glucose: 17:20 Blood Glucose: 65 mg/dL; rs5 Ranges: Intake: Outcome: 18:32 Discharge ordered by . kb 19:08 Discharged to home via wheelchair. rs5 19:08 Condition: stable 19:08 Discharge instructions given to patient, Instructed on discharge instructions, follow up and referral plans. medication usage, Demonstrated understanding of instructions, follow-up care, medications, Prescriptions given X 2. 19:12 Patient left the ED. rs5 Signatures: Dispatcher [employer] EDOK Neealm Wooten FNP-C FNP-Ckb Baxter, Heather, RN RN Lars London, RN RN rs5 Tegan Chirinos RN RN nj1 Veronica Howard mg5 Corrections: (The following items were deleted from the chart) 16:14 16:10 Chief complaint: Patient states: Cough and breathing difficulties since nj1 yesterday, getting worse. Had fever today. Colonoscopy done yesterday. nj1 16:14 16:10 Pulse 104bpm; Resp 20bpm; Pulse Ox 93%; Temp 99.2F Oral; 61.23 kg; Height 5 ft. nj1 11 in.; BMI: 18.8; nj1 17:46 16:30 Injury Description: Quarter sized pressure injury noted to tailbone. Pt reports rs5 having injury for two months. Denies recent hospitalization and falling rs5 17:49 16:30 Injury Description: Quarter sized pressure injury noted to tailbone. Pt reports rs5 having injury for two months. Denies recent hospitalization and falling rs5 17:49 17:25 Reassessment: Pt instructed to eat and drink because of blood glucose levels 65. rs5 rs5 19:03 18:10 Reassessment: Patient and/or family updated on plan of care and expected rs5 duration. Pain level reassessed. Patient is alert, oriented x 3, equal unlabored respirations, skin warm/dry/pink. Patient denies pain at this time. Pt consumed 1/2 peanut butter jelly sandwiches and drank two small juice boxes reports chills, fingers are cold. rs5 19:04 18:10 Reassessment: Patient and/or family updated on plan of care and expected rs5 duration. Pain level reassessed. Patient is alert, oriented x 3, equal unlabored respirations, skin warm/dry/pink. Patient denies pain at this time. Pt consumed 1/2 peanut butter jelly sandwiches and drank two small juice boxes reports feeling cold. rs5 19:09 19:08 IV Status: Completed infusion rs5 rs5 19:11 19:10 IV discontinued, intact, bleeding controlled, No redness/swelling at site. rs5 Pressure dressing applied, rs5
--- NOTE | 2022-11-23 18:32 | EDPHYS ---
Physician Documentation [facility] Name: Jacques Brown Age: 87 yrs Sex: Male : 1935 Arrival Date: 11/23/2022 Time: 16:03 Bed 8 Private MD: AKILAH Physician Akhil Leonard HPI: 11/23 16:16 This 87 yrs old Male presents to ER via Ambulatory with complaints of Cough, Breathing kb Difficulty, Fever. 16:16 The patient or guardian reports cough, that is intermittent, described as moderate, kb difficulty breathing, flu symptoms, low-grade fever, myalgias. Onset: The symptoms/episode began/occurred this morning. Severity of symptoms: At their worst the symptoms were moderate, in the emergency department the symptoms are unchanged. Modifying factors: The symptoms are alleviated by nothing, the symptoms are aggravated by nothing. Associated signs and symptoms: Pertinent positives: fever, rhinorrhea, Pertinent negatives: chest pain, diarrhea, ear ache, nausea, sore throat, vomiting. The patient has not experienced similar symptoms in the past. The patient has been recently seen by a physician:. Pt reports cough, shortness of breath and fever up to 101 that started this morning. Reports he had a colonoscopy yesterday with polyp removal. Denies abd pain, n/v/d, bleeding. 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 - Social history:: Smoking status: Patient denies any tobacco usage or history of. ROS: 16:15 Abdomen/GI: Negative for abdominal pain, nausea, vomiting, diarrhea, and constipation. kb 16:15 Constitutional: Positive for fever. 16:15 Respiratory: Positive for cough, shortness of breath. 16:15 All other systems are negative. Exam: 16:15 Constitutional: This is a well developed, well nourished patient who is awake, alert, kb and in no acute distress. Head/Face: Normocephalic, atraumatic. ENT: Moist Mucous membranes Cardiovascular: Regular rate and rhythm with a normal S1 and S2. No gallops, murmurs, or rubs. No pulse deficits. Respiratory: Respirations even and unlabored. No increased work of breathing. Talking in full sentences Abdomen/GI: Soft, non-tender. No distention Skin: Warm, dry with normal turgor. Normal color. MS/ Extremity: Pulses equal, no cyanosis. Neurovascular intact. Full, normal range of motion. Neuro: Awake and alert, GCS 15, oriented to person, place, time, and situation. Moves all extremities. Normal gait. 16:33 ECG was reviewed by the Attending Physician. Vital Signs: 16:10 BP 130 / 74; Pulse 104; Resp 20; Temp 99.2(O); Pulse Ox 93% ; Weight 61.23 kg; Height 5 nj1 ft. 11 in. ; 16:30 BP 140 / 90; Pulse 106; Resp 20; Pulse Ox 94% on R/A; nj1 17:10 BP 134 / 71; Pulse 105; Resp 18; Pulse Ox 95% ; hb 18:31 BP 136 / 86; Pulse 105; Resp 24; Pulse Ox 95% ; hb 19:00 BP 134 / 71; Pulse 96; Resp 18; Temp 99.2; Pulse Ox 99% ; rs5 16:10 Body Mass Index 18.83 (61.23 kg, 180.34 cm) nj1 MDM: 16:08 Patient medically screened. kb 16:16 Differential Diagnosis: Other flu, covid, uri, pneumonia. Data reviewed: vital signs, kb nurses notes. 18:30 Consideration of Admission/Observation Escalation of care including kb admission/observation considered. admission considered, but oxygen saturation 95% on room air, pt is in no resp distress, chest x-ray normal. Management of patient was discussed with the following: Primary Care Provider: Dr Ng, recommends prednisone and paxlovid. Counseling: I had a detailed discussion with the patient and/or guardian regarding the historical points, exam findings, and any diagnostic results supporting the discharge/admit diagnosis, lab results, radiology results, the need for outpatient follow up, a family practitioner, to return to the emergency department if symptoms worsen or persist or if there are any questions or concerns that arise at home. 11/23 16:12 Order name: Blood Culture Adult (2) 11/23 16:12 Order name: CBC with Diff; Complete Time: 16:43 kb 11/23 16:12 Order name: CMP; Complete Time: 17:03 kb 11/23 16:12 Order name: Lactate w/ 2H reflex if indic.; Complete Time: 17:03 kb 11/23 16:12 Order name: Protime (+inr); Complete Time: 17:03 kb 11/23 16:12 Order name: Ptt, Activated; Complete Time: 17:03 kb 11/23 16:12 Order name: COVID-19 SARS RT PCR; Complete Time: 17:11 kb 11/23 16:12 Order name: Flu; Complete Time: 17:03 kb 11/23 17:33 Order name: Glucose, Ancillary Testing; Complete Time: 17:33 EDMS 11/23 16:12 Order name: Chest Single View XRAY; Complete Time: 17:38 kb 11/23 16:12 Order name: EKG; Complete Time: 16:13 kb 11/23 16:12 Order name: Accucheck; Complete Time: 17:05 kb 11/23 16:12 Order name: Cardiac monitoring; Complete Time: 17:04 kb 11/23 16:12 Order name: EKG - Nurse/Tech; Complete Time: 17:04 kb 11/23 16:12 Order name: IV Saline Lock - Large Bore; Complete Time: 16:30 kb 11/23 16:12 Order name: Labs collected and sent; Complete Time: 16:30 kb 11/23 16:12 Order name: O2 Per Protocol; Complete Time: 17:04 kb 11/23 16:12 Order name: O2 Sat Monitoring; Complete Time: 17:05 kb 11/23 16:12 Order name: Vital Signs; Complete Time: 17:05 kb 11/23 17:42 Order name: Misc. Order: ambulate and check sat; Complete Time: 17:55 kb EC:33 Rate is 117 beats/min. Rhythm is irregularly irregular. QRS [place] is Normal. QRS kb interval is normal at 68 msec. QT interval is normal at 432 msec. Administered Medications: 17:30 Drug: NS 0.9% IV 1000 ml Route: IV; Rate: 1000 ml; Site: left antecubital; rs5 17:41 Follow up: No adverse reaction noted rs5 18:41 Follow up: IV Status: Completed infusion rs5 Point of Care Testing: Blood Glucose: 17:20 Blood Glucose: 65 mg/dL; rs5 Ranges: Critical Glucose Levels:Adult <50 mg/dl or >400 mg/dl <40 mg/dl or >180 mg/dl Disposition Summary: 11/23/22 18:32 Discharge Ordered Location: Home Condition: Stable kb Diagnosis - SARS-associated coronavirus as the cause of diseases classified elsewhere kb Followup: kb - With: Emergency Department - When: As needed - Reason: Worsening of condition Followup: kb - With: Private Physician - When: 2 - 3 days - Reason: Recheck today's complaints, Continuance of care, Re-evaluation by your physician Discharge Instructions: - Discharge Summary Sheet kb - COVID-19 kb - Viral Illness, Adult kb Forms: - Medication Reconciliation Form kb - Thank You Letter kb - Antibiotic Education kb - Prescription Opioid Use kb - Patient Portal Instructions kb - Leadership Thank You Letter kb Prescriptions: - Paxlovid 300 mg (150 mg x 2)-100 mg Oral Tablet, Dose Pack - take 1 dose pack by ORAL route as directed on dose pack take TWO 150 mg tablets kb of nirmatrelvir with ONE 100 mg tablet of ritonavir twice daily for 5 days; 1 Pack; Refills: 0, Product Selection Permitted - prednisone 10 mg Oral tablet - take 3 tablet by ORAL route once daily for 3 days Take 3 tabs (30mg) daily for kb 3 days, then 2 tabs (20mg) for 3 days, then 1 tab (10mg) for 3 days; 18 tablet; Refills: 0, Product Selection Permitted Signatures: Dispatcher [employer] Neelam Dooley FNP-C FNP-Ckb Sotelo, Ricky RN RN rs5 Tegan Chirinos RN RN nj1
[2022-11-23 19:50] VITALS: TEMP 99.2
[2022-11-23 19:57] VITALS: BP 134/71; O2SAT 99
== END 2022-11-23 19:12 | disposition home or self-care (01) ==
LOC: ER 16:03
DX: U07.1 COVID-19 (principal); I48.91 Unspecified atrial fibrillation; Z95.1 Presence of aortocoronary bypass graft; Z88.8 Allergy status to other drugs, medicaments and biological substances; Z91.038 Other insect allergy status; Z91.048 Other nonmedicinal substance allergy status
CPT/HCPCS: 87040 ×2; 85025; 36415; 85610; 82947; 83605; 85730; 80053; 87635; 87804 ×2; 71045; J7030; 93005

== ENCOUNTER 2023-02-13 08:58 | Emergency (ER) | payer OTHER, BC ==
--- OUTSIDE RECORDS SUMMARY | 2023-02-13 09:02 | XMS REPORT | Continuity of Care Document ---
:1935 Author Organization [facility] t Address [address] [place] [address] [address] [place] [address] Care Team Providers Name Role Phone CRISTINA PRIEST Primary Care Physician NADEEM Mccauley Attending Clinician Unavailable NADEEM DE LA ROSA Admitting Clinician Unavailable Payers Payer Name Policy Type Policy Number Effective Date Expiration Date S [facility] MEDICARE A B [id number] [place] [id number] 2001 OS 00:00:00 Problems Condition Condition Condition Status Onset Resolution Last Treating Co mments Source Name Details Category Date Date Treatment Clinician Date Coronary Coronary Disease Active 2019-04 [facility] S t artery artery 05-04 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 Nola De La Rosa [facility] Acute Acute Disease Active [facility] respirator respirator Millie kes y y Medical insufficie insufficie Ce nter ncy ncy Acute Acute Disease Active [facility] blood loss blood loss Millie kes anemia anemia [facility] Acute Acute Disease Active [facility] post-opera post-opera Millie kes tive pain tive pain [facility] Allergies, Adverse Reactions, Alerts Allergy Allergy Status Severity Reaction(s) Onset Inactive Treating Comm ents Source Name Type Date Date Clinician NO KNOWN Allergy Active [facility] Social History Social Habit Start Date Stop Date Quantity Comments Source Sexual orientation [facility] Sex Assigned At [address] [facility] 00:00:00 [facility]00 [facility] Medications Ordered Filled [...] 11:04: (two) Medical 11 times Center daily. potassium 2019-04 Yes 20meq QD Take 20 [...] Cent er capsule mouth via inhaler daily. aspirin 81 2019-04 Yes 81mg QD [...] 12 250-50 (twelve) mcg/dose hours. diskus inhaler amiodarone 2019-04 Yes 200mg Q.5D Take 1 [...] Medical Ce nter Vaccine (#1)] Future Scheduled 2022-12-02 Influenza Vaccine (#1) [facility] 00:[facility]00 [code = Influenza Medical Ce nter Vaccine (#1)] Future Scheduled 2022-04-[address] [facility] 00:00:00 (12+) [code = Medical Center DEPRESSION SCREENING (12+)] Future Scheduled 2022-04-03 FALLS RISK SCREENING [facility] 00:00:00 [code = FALLS RISK Medical C enter SCREENING] Future Scheduled 2022-04-[address] [...] FIRST YEAR if no IPPE)] Future Scheduled 2002-04-[address] [facility] 00:00:00 WELLNESS (YEAR 2 or Medical Center FIRST YEAR if no IPPE) [code = MEDICARE ANNUAL WELLNESS (YEAR 2 or FIRST YEAR if no IPPE)] Future Scheduled 1986 SHINGLES VACCINES ([address] [facility] 00:00:00 of 2) [code = SHINGLES Medic al Center VACCINES (1 of 2)] Future Scheduled 1986 SHINGLES VACCINES ([address] [facility] 00:00:00 of 2) [code = SHINGLES Medic al Center VACCINES (1 of 2)] Future Scheduled 1955 DTAP/TDAP/TD VACCINES [facility] 00:00:00 (1 - Tdap) [code = Medical C enter DTAP/TDAP/TD VACCINES (1 - Tdap)] Future Scheduled 1955 DTAP/TDAP/TD VACCINES [facility] 00:00:00 (1 - Tdap) [code = Medical C enter DTAP/TDAP/TD VACCINES (1 - Tdap)] Future Scheduled [address] [facility] Test 00:00:00 Counseling and Medical Cente r Screening (12+) [code = Tobacco Cessation Counseling and Screening (12+)] Future Scheduled [address] [facility] Test 00:00:00 Counseling and Medical Cente r Screening (12+) [code = Tobacco Cessation Counseling and Screening (12+)] Future Scheduled 1942 PNEUMOCOCCAL 65+ YRS [facility] Test 00:00:00 (1 - PCV) [code = Medical Ce nter PNEUMOCOCCAL 65+ YRS (1 - PCV)] Future Scheduled 1942 PNEUMOCOCCAL 65+ YRS [facility] Test 00:00:00 (1 - PCV) [code = Medical Ce nter PNEUMOCOCCAL 65+ YRS (1 - PCV)] Future Scheduled 1935 COVID-19 VACCINE (#1) [facility] 00:00:00 [code = COVID-[address] VACCINE (#1)] Future Scheduled 1935 COVID-19 VACCINE (#1) [facility] 00:00:00 [code = COVID-[address] VACCINE (#1)] Encounters Start End Encounter Admission Attending Care Care Encounter Source Date/Time Date/Time Type Type Clinicians Facility Department ID 2021-01-08 Inpatient ER HIRA DE LA ROSA Surgery [id number] [facility] 18:20:23 NADEEM 2020-03-18 2020-03-18 Outpatient HIRA SANTIAGO [facility] [id number] [facility] 00:00:00 00:00:00 NADEEM 2020-03-16 2020-03-16 Outpatient CHATO DE LA ROSA [facility] [id number] SLE 00:00:00 00:00:00 NADEEM Results Test Description Test Time Test Comments Results Result Comments Source TISSUE EXAM 2020-03-09 Surgical Pathology 16:17:00 Report Case: [id number] Authorizing Provider: Estrella Nadeem Nguyen, Collected: 03/03/2020 03:01 PM Ordering Location: [facility] ASHLIE HOWARD Received: 03/04/2020 08:21 AM PERIOPERATIVE SERVICES Pathologist: Tre Eugene MD Specimen: Chest, Mole in chest SKIN, CHEST, EXCISION: - SEBORRHEIC KERATOSIS, IRRITATED AND INFLAMED Signing Pathologist Direct Phone Line: [phone] ically signed by Tre Eugene MD on 03/09/2020 at 4:17 [id number] artery disease with angina pectoris, unspecified vessel [...] Test Item Value Reference Range Interpretation Comme [facility] POC-GLUCOSE METER (BEAKER) 135 mg/dL 70-110 H : TESTED AT [facility] [address] [facility] (test code = 1538) CARRILLO [place], [address]: Wind Turbine Mechanical Engineer/Techni suma ID = [id number] for MO DUGGAN BASIC METABOLIC [id number] 07:18:00 Test Item Value Reference Range Interpretation [...] S NOT APPLICABLE FOR DIALYSIS PATIEN TS. Wind Turbine Mechanical Engineer ID - FIDEL [id number] 07:18:00 Test Item Value Reference Range Interpretation Comments MAGNESIUM (BEAKER) (test code = 1.7 mg/dL 1.6-2.6 627) Wind Turbine Mechanical Engineer ID - FIDEL [id number] 07:18:00 Test Item Value Reference Range Interpretation Comments PHOSPHORUS (BEAKER) (test code = 2.7 mg/dL 2.3-4.7 604) Wind Turbine Mechanical Engineer ID - FIDEL LPOCT-GLUCOSE [id number] 07:02:00 Test Item Value Reference Range Interpretation Comments POC-GLUCOSE METER 116 mg/dL 70-110 H : TESTED A T [facility] [address] (BEAKER) (test code = [facility] Keypr [facility], 1538) [address]: Wind Turbine Mechanical Engineer/Techni suma ID = [id number] for FLOYD LIN POCT-GLUCOSE [id number] 07:01:00 Test Item Value Reference Range Interpretation Comments POC-GLUCOSE METER 124 mg/dL 70-110 H : TESTED A T [facility] [address] (BEAKER) (test code = [facility], 1538) [address]: Wind Turbine Mechanical Engineer/Techni suma ID = [id number] for FLOYD LIN CBC (HEMOGRAM ONLY)2020-03-08 06:44:00 [...] 0-0 (BEAKER) (test code = 413) POCT-GLUCOSE [id number] 21:50:00 Test Item Value Reference Range Interpretation Comments POC-GLUCOSE METER 122 mg/dL 70-110 H : TESTED A T [facility] [address] ([facility]) (test code = [place], 1538) [address]: Wind Turbine Mechanical Engineer/Techni suma ID = [id number] for PE RALES, EDGARDO CT, CHEST, WITHOUT [id number] 09:41:00Unlisted Reason for Exam - Click Yes and Enter Reason Below->No [facility] : 1935 Sex: MFINAL REPORT [...] MDReport Verified Date/Time: 03/07/2020 09:41:32 Reading Location: [address] Consult Reading Room POCT-GLUCOSE [id number] 08:43:00 Test Item Value Reference Range Interpretation Comments POC-GLUCOSE METER 110 mg/dL 70-110 : TESTED A T [facility] [address] (BEAKER) (test code = [place], 1538) [address]: Wind Turbine Mechanical Engineer/Techni suma ID = [id number] for FLOYD LIN BASIC METABOLIC [id number] 05:39:00 Test Item Value Reference Range Interpretation [...] S NOT APPLICABLE FOR DIALYSIS PATIEN TS. Wind Turbine Mechanical Engineer ID - [id number] 05:39:00 Test Item Value Reference Range Interpretation Comments MAGNESIUM (BEAKER) (test code = 1.7 mg/dL 1.6-2.6 627) Wind Turbine Mechanical Engineer ID - [id number] 05:39:00 Test Item Value Reference Range Interpretation Comments PHOSPHORUS (BEAKER) (test code = 2.5 mg/dL 2.3-4.7 604) Wind Turbine Mechanical Engineer ID - EDASICBC (HEMOGRAM ONLY)2020-03-07 05:00:00 Test [...] (test code = 413) BUN AND CREATININE [id number] 17:55:00 Test Item Value Reference Range Interpretation Comments BLOOD UREA NITROGEN 12 mg/dL 7-21 (BEAKER) (test code = 354) CREATININE (BEAKER) 0.84 mg/dL 0.57-1.25 (test code = 358) BUN/CREAT RATIO 14 For a normal (BEAKER) (test code individu al on a = 4427201939) normal diet, t he reference inter karol for the mass ra casie ranges between 12:1 and 20:1 (BUN i n mg/dL/creatinin e in mg/dL) EGFR (BEAKER) (test 87 mL/min/1.73 ESTIMA LULU GFR IS code = 1092) sq m NOT ACCURATE CREATININE CLEARANCE IN PREDICTING GLOMERULAR FILTRATION RATE . ESTIMATED GFR I S NOT APPLICABLE FOR DIALYSIS PATIEN TS. Wind Turbine Mechanical Engineer ID - ADMINPOCT-GLUCOSE [id number] 16:29:00 Test Item Value Reference Range Interpretation Comments POC-GLUCOSE METER 139 mg/dL 70-110 H : TESTED A T [facility] [address] ([employer]) (test code = CALE Frye [facility], 1538) [address]: Wind Turbine Mechanical Engineer/Techni smua ID = [id number] for Vineet, Roxanne POCT-GLUCOSE [id number] 12:23:00 Test Item Value Reference Range Interpretation Comments POC-GLUCOSE METER 143 mg/dL 70-110 H : TESTED A T [facility] [address] ([employer]) (test code = CALE [place]e [facility], 1538) [address]: Wind Turbine Mechanical Engineer/Techni suma ID = [id number] for Vineet, Roxanne POCT-GLUCOSE [id number] 08:52:00 Test Item Value Reference Range Interpretation Comments POC-GLUCOSE METER 132 mg/dL 70-110 H : TESTED A T [facility] [address] (BEHexago) (test code = CALE Frye [facility], 1538) [address]: Wind Turbine Mechanical Engineer/Techni suma ID = [id number] for Roxanne Manley BASIC METABOLIC [id number] 06:11:00 Test Item Value Reference Range Interpretation [...] S NOT APPLICABLE FOR DIALYSIS PATIEN TS. Wind Turbine Mechanical Engineer ID - [id number] 06:11:00 Test Item Value Reference Range Interpretation Comments PHOSPHORUS (BEAKER) (test code = 2.1 mg/dL 2.3-4.7 L 604) Wind Turbine Mechanical Engineer ID - ADMINCBC W/PLT COUNT & AUTO [id number] 05:34:00 Test Item Value Reference Range Interpretation [...] PERCENT (BEAKER) (test code = 2801) POCT-GLUCOSE [id number] 22:09:00 Test Item Value Reference Range Interpretation Comments POC-GLUCOSE METER 127 mg/dL 70-110 H : TESTED A T [facility] [address] (BEAKER) (test code = [place], 1538) [address]: Wind Turbine Mechanical Engineer/Techni suma ID = [id number] for Re yes, Sairy POCT-GLUCOSE [id number] 17:18:00 Test Item Value Reference Range Interpretation Comments POC-GLUCOSE METER 129 mg/dL 70-110 H : TESTED A T [facility] [address] (BEAKER) (test code = CALE [place] [facility], 1538) [address]: Wind Turbine Mechanical Engineer/Techni suma ID = [id number] for VITA NELSON (Sharyn)JG POCT-GLUCOSE [id number] 12:42:00 Test Item Value Reference Range Interpretation Comments POC-GLUCOSE METER 151 mg/dL 70-110 H : TESTED A T [facility] 67[address] (YVONNEBANNER) (test code = CALE Frye [facility], 1538) [address]: Wind Turbine Mechanical Engineer/Techni suma ID = [id number] for OR STONEY RAZO RAD, CHEST, 1 VIEW, NON [id number] 10:28:00Reason for exam:->shortness of breathShould this be performed at the bedside?->Yes [facility] : 1935 Sex: MFINAL REPORT INDICATION: shortness of breath COMPARISON: March 04, 2020 TECHNIQUE:Single frontal view of the chest. FINDINGS: Lungs and pleura: Clear lungs. No effusion.Heart and mediastinum: Normal heart size. Unremarkable mediastinal contours.Osseous structures: No acute abnormality.Other: None. IMPRESSION: No acute intrathoracic abnormality. Signed: Eddie Khalil MDReport Verified Date/Time: 03/05/2020 10:28:06 Reading Location: [facility] Radiology Reading Room POCT-GLUCOSE [id number] 08:12:00 Test Item Value Reference Range Interpretation Comments POC-GLUCOSE METER 100 mg/dL 70-110 : TESTED A T [facility] [address] (YVONNEAKER) (test code = [place], 1538) [address]: Wind Turbine Mechanical Engineer/Techni suma ID = [id number] for OR DUNGKIARAIS BASIC METABOLIC [id number] 06:22:00 Test Item Value Reference Range Interpretation [...] S NOT APPLICABLE FOR DIALYSIS PATIEN TS. Wind Turbine Mechanical Engineer ID - JEFRY [id number] 06:22:00 Test Item Value Reference Range Interpretation Comments MAGNESIUM (BEAKER) (test code = 1.9 mg/dL 1.6-2.6 627) Wind Turbine Mechanical Engineer ID - JEFRY [id number] 06:22:00 Test Item Value Reference Range Interpretation Comments PHOSPHORUS (BEAKER) (test code = 2.0 mg/dL 2.3-4.7 L 604) Wind Turbine Mechanical Engineer ID - JEFRY MCBC (HEMOGRAM ONLY)2020-03-05 05:14:00 [...] WBC 0-0 (test code = 413) POCT-GLUCOSE [id number] 21:40:00 Test Item Value Reference Range Interpretation Comments POC-GLUCOSE METER 134 mg/dL 70-110 H : TESTED A T [facility] [address] (BEAKER) (test code = [facility], 1538) [address]: Wind Turbine Mechanical Engineer/Techni suma ID = [id number] for Re yes, Sairy POCT-GLUCOSE [id number] 17:30:00 Test Item Value Reference Range Interpretation Comments POC-GLUCOSE METER 117 mg/dL 70-110 H : TESTED A T [facility] 67[address] (BEAKER) (test code = [facility], 1538) [address]: Wind Turbine Mechanical Engineer/Techni suma ID = [id number] for MU RPHY, BERNY [id number] 11:56:00 Test Item Value Reference Range Interpretation Comments MAGNESIUM (BEAKER) (test code = 2.1 mg/dL 1.6-2.6 627) Wind Turbine Mechanical Engineer ID - AAHAMIDPOCT-GLUCOSE [id number] 10:28:00 Test Item Value Reference Range Interpretation Comments POC-GLUCOSE METER 136 mg/dL 70-110 H : TESTED A T [facility] [address] (BEAKER) (test code = [facility], 1538) [address]: Wind Turbine Mechanical Engineer/Techni suma ID = [id number] for MU RPHY, BERNY LACTIC ACID, [id number] 05:34:00 Test Item Value Reference Range Interpretation Comments LACTATE BLOOD ARTERIAL (2) 1.2 mmol/L 0.5-2.2 (BEAKER) (test code = 2874) Wind Turbine Mechanical Engineer ID - FRANCHESCAOOD GAS, [id number] 05:19:00 Test Item Value Reference Range Interpretation [...] (BEAKER) (test code = 1819) 36.0 POCT-GLUCOSE [id number] 05:17:00 Test Item Value Reference Range Interpretation Comments POC-GLUCOSE METER 168 mg/dL 70-110 H : TESTED A T [facility] [address] (BEAKER) (test code = [place], 1538) [address]: Wind Turbine Mechanical Engineer/Techni suma ID = [id number] for Jv Domingo, CHEST, 1 VIEW, NON [id number] 03:28:00while patient is intubated or has chest tubes.Reason for exam:->Status post CV SurgeryShould thisbe performed at the bedside?->Yes [facility]ACK[facility] : 1935 Sex: MFINAL REPORT [...] MDReport Verified Date/Time: 03/04/2020 03:28:16 BASIC METABOLIC [id number] 03:25:00 Test Item Value Reference Range Interpretation [...] S NOT APPLICABLE FOR DIALYSIS PATIEN TS. Wind Turbine Mechanical Engineer ID - [id number] 03:09:00 Test Item Value Reference Range Interpretation Comments MAGNESIUM (BEAKER) (test code = 1.8 mg/dL 1.6-2.6 627) Wind Turbine Mechanical Engineer ID - [id number] 03:09:00 Test Item Value Reference Range Interpretation Comments PHOSPHORUS (BEAKER) (test code = 3.1 mg/dL 2.3-4.7 604) Wind Turbine Mechanical Engineer ID - EDASICBC (HEMOGRAM ONLY)2020-03-04 02:54:00 Test [...] 0-0 (test code = 413) LACTIC ACID, [id number] 00:26:00 Test Item Value Reference Range Interpretation Comments LACTATE BLOOD ARTERIAL (2) 1.6 mmol/L 0.5-2.2 (BEAKER) (test code = 2874) Wind Turbine Mechanical Engineer ID - JEFRY MPOCT-GLUCOSE [id number] 00:19:00 Test Item Value Reference Range Interpretation Comments POC-GLUCOSE METER 171 mg/dL 70-110 H : TESTED A T [facility] [address] (BEAKER) (test code = [place], 1538) [address]: Wind Turbine Mechanical Engineer/Techni suma ID = [id number] for Jv Domingo BLOOD GAS, [id number] 00:16:00 Test Item Value Reference Range Interpretation [...] (test code = 1819) 36.0 BLOOD GAS, [id number] 21:27:00 Test Item Value Reference Range Interpretation [...] (test code = 1819) 40.0 LACTIC ACID, [id number] 19:55:00 Test Item Value Reference Range Interpretation Comments LACTATE BLOOD 2.3 mmol/L 0.5-2.2 H Specimen sligh tly ARTERIAL (2) (BEAKER) hemoly zed (test code = 2874) Wind Turbine Mechanical Engineer ID - BSCBC W/PLT COUNT & AUTO [id number] 19:39:00 Test Item Value Reference Range Interpretation [...] PERCENT (BEAKER) (test code = 2801) CALCIUM, [id number] 19:36:00 Test Item Value Reference Range Interpretation Comments CALCIUM IONIZED (BEAKER) (test 1.06 mmol/L 1.12-1.27 L code = 698) PH, BLOOD (BEAKER) (test code = 7.42 1810) BLOOD GAS, [id number] 19:36:00 Test Item Value Reference Range Interpretation [...] (BEAKER) (test code = 1819) 40.0 GLUCOSE-STAT [id number] 19:36:00 Test Item Value Reference Range Interpretation Comments GLUCOSE RANDOM (BEAKER) (test code 148 mg/dL 70-110 H = 652) HGB/HCT (H&H) - STAT [id number] 19:36:00 Test Item Value Reference Range Interpretation Comments HEMOGLOBIN (BEAKER) (test code = 12.0 GM/DL 13.0-16.8 L 410) HEMATOCRIT (BEAKER) (test code = 35.0 % 40.0-50.0 L 411) SODIUM NA-STAT [id number] 19:35:00 Test Item Value Reference Range Interpretation Comments SODIUM (BEAKER) (test code = 381) 135 meq/L 136-145 L POTASSIUM-STAT [id number] 19:35:00 Test Item Value Reference Range Interpretation Comments POTASSIUM (BEAKER) (test code = 4.2 meq/L 3.6-5.5 379) SARS-COV2/RT-PCR ([facility])2020-03-03 18:50:00 Test Item Value Reference Range Interpretation Comments SARS-COV2/RT-PCR (test Negative Not Detected, Negative, code = 2291358) See external report for linked test SARS-COV-2 PERFORMING LAB [facility] (test code = 7592240) Negative result for this test determines that [...] of the Act.Fact Sheet for Healthcare Prov iders:https://www.[employer]/sites/default/files/product/documents/Fact_Sheet_HC _Dcanvvmnu_Dfhp_BFWL-NvK-1.pdfFact Sheet for Healthcare Patients:https://www.[employer]/sites/default/files/product/docume nts/Ubfh_Juwld_Pdgcfkky_Oulb_TYZZ-VqA-8.pdfPerforming Laboratory:[facility] [place], [place] [id number] 18:18:00 Test Item Value Reference Range Interpretation [...] is 2.5-3.5 for patients wiht mechanical heart valves.[id number] 18:02:00 Test Item Value Reference Range Interpretation Comments MAGNESIUM (BEAKER) 1.9 mg/dL 1.6-2.6 Specimen slightly (test code = 627) hemolyzed Wind Turbine Mechanical Engineer ID - [id number] 18:02:00 Test Item Value Reference Range Interpretation Comments PHOSPHORUS (BEAKER) 3.3 mg/dL 2.3-4.7 Specimen slightly (test code = 604) hemolyzed Wind Turbine Mechanical Engineer ID - [id number] 18:00:00 Test Item Value Reference Range Interpretation Comments MAGNESIUM (BEAKER) 2.3 mg/dL 1.6-2.6 Specimen slightly (test code = 627) hemolyzed Wind Turbine Mechanical Engineer ID - [id number] 18:00:00 Test Item Value Reference Range Interpretation Comments PHOSPHORUS (BEAKER) 2.6 mg/dL 2.3-4.7 Specimen slightly (test code = 604) hemolyzed Wind Turbine Mechanical Engineer ID - BSBASIC METABOLIC [id number] 18:00:00 Test Item Value Reference Range Interpretation [...] S NOT APPLICABLE FOR DIALYSIS PATIEN TS. Wind Turbine Mechanical Engineer ID - BSRAD, CHEST, 1 VIEW, NON [id number] 18:00:00Reason for exam:- >s/p cv surgery [facility] : 1935 Sex: MFINAL REPORT [...] [place] Verified Date/Time: 03/03/2020 18:00:39 Reading Location: [address] Transitional Reading Room IC ACID, [id number] 17:56:00 Test Item Value Reference Range Interpretation Comments LACTATE BLOOD 1.2 mmol/L 0.5-2.2 Specimen sligh tly ARTERIAL (2) (TONY) hemoly zed (test code = 2874) Wind Turbine Mechanical Engineer ID - ADMINPROTHROMBIN [id number] 17:50:00 Test Item Value Reference Range Interpretation [...] is 2.5-3.5 for patients wiht mechanical heart valves.[id number] 17:50:00 Test Item Value Reference Range Interpretation Comments FIBRINOGEN LEVEL (BEAKER) (test 233 mg/dl 225-434 code = 658) [id number] 17:50:00 Test Item Value Reference Range Interpretation Comments PARTIAL THROMBOPLASTIN TIME 28.3 seconds 22.5-36.0 (BEAKER) (test code = 760) CBC W/PLT COUNT & AUTO [id number] 17:47:00 Test Item Value Reference Range Interpretation [...] PERCENT (BEAKER) (test code = 2801) POTASSIUM-STAT [id number] 17:34:00 Test Item Value Reference Range Interpretation Comments POTASSIUM (BEAKER) (test code = 4.7 meq/L 3.6-5.5 379) OXYGEN SATURATION, [id number] 17:34:00 Test Item Value Reference Range Interpretation Comments O2 SATURATION (MEASURED) (BEAKER) 69.3 % (test code = 1455) CALCIUM, [id number] 17:34:00 Test Item Value Reference Range Interpretation Comments CALCIUM IONIZED (BEAKER) (test 1.34 mmol/L 1.12-1.27 H code = 698) PH, BLOOD (BEAKER) (test code = 7.45 1810) BLOOD GAS, [id number] 17:34:00 Test Item Value Reference Range Interpretation [...] (test code = 1819) 50.0 SODIUM NA-STAT [id number] 17:34:00 Test Item Value Reference Range Interpretation Comments SODIUM (BEAKER) (test code = 381) 133 meq/L 136-145 L GLUCOSE-STAT [id number] 17:34:00 Test Item Value Reference Range Interpretation Comments GLUCOSE RANDOM (BEAKER) (test code 137 mg/dL 70-110 H = 652) HGB/HCT (H&H) - STAT [id number] 17:34:00 Test Item Value Reference Range Interpretation Comments HEMOGLOBIN (BEAKER) (test code = 12.8 GM/DL 13.0-16.8 L 410) HEMATOCRIT (BEAKER) (test code = 38.0 % 40.0-50.0 L 411) [id number] 17:24:00 Test Item Value Reference Range Interpretation Comments ACTIVATED CLOTTING TIME 109 sec : 74 -137 seconds, (BEAKER) (test code = Baseli ne: TESTED AT 441) [address], [facility] 30: Wind Turbine Mechanical Engineer/Techni suma ID = [id number] for LETHRIDGE, [place] [id number] 17:24:00 Test Item Value Reference Range Interpretation Comments ACTIVATED CLOTTING TIME 488 sec : 74 -137 seconds, (BEAKER) (test code = Baseli ne: TESTED AT 441) [address], [address]70 30: Wind Turbine Mechanical Engineer/Techni suma ID = [id number] for LETHRIDGE, [place] [id number] 17:24:00 Test Item Value Reference Range Interpretation Comments ACTIVATED CLOTTING TIME 494 sec : 74 -137 seconds, (BEAKER) (test code = Baseli ne: TESTED AT 441) [address] [place], [address]: Wind Turbine Mechanical Engineer/Techni suma ID = [id number] for MASON TRAVIS [id number] 17:23:00 Test Item Value Reference Range Interpretation Comments ACTIVATED CLOTTING TIME 527 sec : 74 -137 seconds, (BEAKER) (test code = Vanei ne: TESTED AT 441) [facility] [address] [facility], [address] 30: Wind Turbine Mechanical Engineer/Techni suma ID = [id number] for MASON TRAVIS PLATELET [id number] 17:14:00 Test Item Value Reference Range Interpretation Comments PLATELET COUNT (BEAKER) (test code 91 K/CU MM 150-450 L = 756) Wind Turbine Mechanical Engineer ID - [id number] ID - [id number] 16:59:00 Test Item Value Reference Range Interpretation Comments FIBRINOGEN LEVEL (BEAKER) (test 233 mg/dl 225-434 code = 658) HGB/HCT (H&H) - STAT [id number] 16:40:00 Test Item Value Reference Range Interpretation Comments HEMOGLOBIN (BEAKER) (test code = 10.7 GM/DL 13.0-16.8 L 410) HEMATOCRIT (BEAKER) (test code = 31.0 % 40.0-50.0 L 411) CALCIUM, [id number] 16:39:00 Test Item Value Reference Range Interpretation Comments CALCIUM IONIZED (BEAKER) (test 1.17 mmol/L 1.12-1.27 code = 698) PH, BLOOD (BEAKER) (test code = 7.36 1810) POTASSIUM-STAT [id number] 16:39:00 Test Item Value Reference Range Interpretation Comments POTASSIUM (BEAKER) (test code = 5.0 meq/L 3.6-5.5 379) BLOOD GAS, [id number] 16:39:00 Test Item Value Reference Range Interpretation [...] (test code = 1819) 100.0 SODIUM NA-STAT [id number] 16:39:00 Test Item Value Reference Range Interpretation Comments SODIUM (BEAKER) (test code = 381) 131 meq/L 136-145 L GLUCOSE-STAT [id number] 16:39:00 Test Item Value Reference Range Interpretation Comments GLUCOSE RANDOM (BEAKER) (test code 156 mg/dL 70-110 H = 652) BLOOD GAS, [id number] 16:10:00 Test Item Value Reference Range Interpretation [...] (test code = 1819) 70.0 SODIUM NA-STAT [id number] 16:10:00 Test Item Value Reference Range Interpretation Comments SODIUM (BEAKER) (test code = 381) 129 meq/L 136-145 L POTASSIUM-STAT [id number] 16:10:00 Test Item Value Reference Range Interpretation Comments POTASSIUM (BEAKER) (test code = 5.6 meq/L 3.6-5.5 H 379) GLUCOSE-STAT [id number] 16:10:00 Test Item Value Reference Range Interpretation Comments GLUCOSE RANDOM (BEAKER) (test code 174 mg/dL 70-110 H = 652) HGB/HCT (H&H) - STAT [id number] 16:10:00 Test Item Value Reference Range Interpretation Comments HEMOGLOBIN (BEAKER) (test code = 10.5 GM/DL 13.0-16.8 L 410) HEMATOCRIT (BEAKER) (test code = 31.0 % 40.0-50.0 L 411) POTASSIUM-STAT [id number] 15:42:00 Test Item Value Reference Range Interpretation Comments POTASSIUM (BEAKER) (test code = 4.5 meq/L 3.6-5.5 379) BLOOD GAS, [id number] 15:42:00 Test Item Value Reference Range Interpretation [...] (test code = 1819) 60.0 SODIUM NA-STAT [id number] 15:42:00 Test Item Value Reference Range Interpretation Comments SODIUM (BEAKER) (test code = 381) 130 meq/L 136-145 L GLUCOSE-STAT [id number] 15:42:00 Test Item Value Reference Range Interpretation Comments GLUCOSE RANDOM (BEAKER) (test code 168 mg/dL 70-110 H = 652) HGB/HCT (H&H) - STAT [id number] 15:42:00 Test Item Value Reference Range Interpretation Comments HEMOGLOBIN (BEAKER) (test code = 10.7 GM/DL 13.0-16.8 L 410) HEMATOCRIT (BEAKER) (test code = 31.0 % 40.0-50.0 L 411) BLOOD GAS, [id number] 15:29:00 Test Item Value Reference Range Interpretation [...] (test code = 1819) 80.0 SODIUM NA-STAT [id number] 15:29:00 Test Item Value Reference Range Interpretation Comments SODIUM (BEAKER) (test code = 381) 125 meq/L 136-145 L HGB/HCT (H&H) - STAT [id number] 15:29:00 Test Item Value Reference Range Interpretation Comments HEMOGLOBIN (BEAKER) (test code = 9.8 GM/DL 13.0-16.8 L 410) HEMATOCRIT (BEAKER) (test code = 29.0 % 40.0-50.0 L 411) GLUCOSE-STAT [id number] 15:27:00 Test Item Value Reference Range Interpretation Comments GLUCOSE RANDOM (BEAKER) (test code = 91 mg/dL 70-110 652) POTASSIUM-STAT [id number] 15:27:00 Test Item Value Reference Range Interpretation Comments POTASSIUM (BEAKER) (test code = 3.9 meq/L 3.6-5.5 379) BLOOD GAS, [id number] 14:51:00 Test Item Value Reference Range Interpretation [...] (BEAKER) (test code = 1819) 100.0 CALCIUM, [id number] 14:51:00 Test Item Value Reference Range Interpretation Comments CALCIUM IONIZED (BEAKER) (test 1.11 mmol/L 1.12-1.27 L code = 698) PH, BLOOD (BEAKER) (test code = 7.43 1810) GLUCOSE-STAT [id number] 14:50:00 Test Item Value Reference Range Interpretation Comments GLUCOSE RANDOM (BEAKER) (test code 108 mg/dL 70-110 = 652) SODIUM NA-STAT [id number] 14:50:00 Test Item Value Reference Range Interpretation Comments SODIUM (BEAKER) (test code = 381) 137 meq/L 136-145 POTASSIUM-STAT [id number] 14:50:00 Test Item Value Reference Range Interpretation Comments POTASSIUM (BEAKER) (test code = 3.6 meq/L 3.6-5.5 379) HGB/HCT (H&H) - STAT [id number] 14:50:00 Test Item Value Reference Range Interpretation Comments HEMOGLOBIN (BEAKER) (test code = 14.6 GM/DL 13.0-16.8 410) HEMATOCRIT (BEAKER) (test code = 43.0 % 40.0-50.0 411) COMPREHENSIVE METABOLIC [id number] 14:15:00 Test Item Value Reference Range Interpretation [...] S NOT APPLICABLE FOR DIALYSIS PATIEN TS. [employer] Mechanical Engineer ID - ROSIANGCBC W/PLT COUNT & AUTO [id number] 14:12:00 Test Item Value Reference Range Interpretation [...] PERCENT (BEAKER) (test code = 2801) PROTHROMBIN [id number] 14:09:00 Test Item Value Reference Range Interpretation [...]
[2023-02-13 09:44] LABS: Absolute Lymphocytes (CBC) 1.3 K/uL (0.7-4.9); Hematocrit 41.4 % (39.6-49.0); Lymphocytes % 14.9 % (15.3-44.8); MCV 87.7 fL (80-100); MPV 10.4 fL (7.6-11.3); Platelets 157 thou/uL (152-406); RBC Red Blood Cell Count 4.72 M/uL (4.33-5.43)
[2023-02-13 09:59] LABS: Potassium 4.4 mEq/L (3.5-5.1)
--- NOTE | 2023-02-13 10:45 | RAD REPORT ---
EXAM DESCRIPTION: CT - CTFBWCON CLINICAL HISTORY: Left sided parotic/ submandibular pain/ swelling COMPARISON: Sinus Wo Cont dated 12/26/2022; SINUS W O CONTRAST dated 04/30/2014 TECHNIQUE: Axial thin cut CT images of the face were obtained, following administration of 70 mL Iso amber-300 intravenously, with sagittal and coronal reconstruction images. All CT scans are performed using dose optimization technique as appropriate and may include automated exposure control or mA/KV adjustment according to patient size. FINDINGS: Asymmetric enlargement and hyperenhancement of the left submandibular gland. Intra and ext ra glandular ductal dilation, with the distal [place]'s duct measuring up to 8 millimeter in caliber. A 5 millimeter ovoid calculus is present at the orifice of the duct along the floor of the mouth, be st appreciated on sagittal image 58/110. Moderate adjacent soft tissue swelling and fat stranding in the floor of mouth and overlying subcutaneous soft tissues. No acute facial bone fracture is seen.The mandible is intact. The globes and orbital contents are grossly unremarkable.The paranasal sinuses and mastoids are clear . IMPRESSION: Sequelae of left mandibular sialoadenitis, with a 5 millimeter calculus at the left [place] duct orifice, resulting in intra and extra glandular ductal dilation. The findings were communicated to Gaetano Licona on 02/13/2023 at 10:36 hours.
--- NOTE | 2023-02-13 10:53 | EDPHYS ---
Physician Documentation [facility] Name: Jacques Brown Age: 87 yrs Sex: Male : 1935 Arrival Date: 02/13/2023 Time: 08:58 Bed 7 Private MD: Wanda Ng C ED Physician Gideon Rubio HPI: 02/13 10:52 This 87 yrs old Male presents to ER via Wheelchair with complaints of Mouth Problem. ms3 10:52 87-year-old man with past medical history of atrial fibrillation, restless leg ms3 syndrome, shingles presents to the emergency department for mouth pain that is been ongoing for 1 week. Patient states he saw his dentist prior to arrival was told it was on his teeth. Patient states pain is 7/10. Patient is taken tramadol with relief. 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 - Social history:: Smoking status: Patient denies any tobacco usage or history of. Patient/guardian denies using alcohol. ROS: 10:52 Constitutional: Negative for fever, and chills. Neck: Negative for injury, pain, and ms3 swelling, Cardiovascular: Negative for chest pain, and palpitations. Respiratory: Negative for shortness of breath, cough, wheezing, and pleuritic chest pain, Abdomen/GI: Negative for abdominal pain, nausea, vomiting, diarrhea, and constipation, MS/Extremity: Negative for injury and deformity, 10:52 ENT: Positive for Mouth pain, Exam: 10:52 Constitutional: This is a well developed, well nourished patient who is awake, alert, ms3 and in no acute distress. 10:52 Chest/axilla: Normal chest wall appearance and motion. Nontender with no deformity. Cardiovascular: Regular rate and rhythm with a normal S1 and S2. No gallops, murmurs, or rubs. Normal PMI, no JVD. No pulse deficits. Respiratory: Lungs have equal breath sounds bilaterally, clear to auscultation and percussion. No rales, rhonchi or wheezes noted. No increased work of breathing, no retractions or nasal flaring. Abdomen/GI: Soft, non-tender, with normal bowel sounds. No distension or tympany. No guarding or rebound. No evidence of tenderness throughout. Skin: Warm, dry with normal turgor. Normal color with no rashes, no lesions, and no evidence of cellulitis. MS/ Extremity: Pulses equal, no cyanosis. Neurovascular intact. Full, normal range of motion. 10:52 Head/face: Noted is swelling, of the left jaw, tenderness, of the mouth, Vital Signs: 09:11 BP 117 / 71; Pulse 49; Resp 18; Temp 97.9(TE); Pulse Ox 99% on R/A; Weight 58.97 kg; ld1 Height 5 ft. 11 in. ; Pain 5/10; 09:49 BP 112 / 63; Pulse 79; Resp 19; Pulse Ox 96% on R/A; tm6 10:43 BP 110 / 76; Pulse 78; Pulse Ox 97% on R/A; tm6 09:11 Body Mass Index 18.13 (58.97 kg, 180.34 cm) ld1 09:11 Pain Scale: Adult ld1 MDM: 09:27 Patient medically screened. ms3 10:52 Differential diagnosis: Parotiditis versus sialolithiasis versus dental pain. Data ms3 reviewed: vital signs, nurses notes, lab test result(s), radiologic studies, CT scan, and as a result, I will discharge patient. Management of patient was discussed with the following: International Specialist: Dr. Ferguson. I considered the following discharge prescriptions or medication management in the emergency department Medications were administered in the Emergency Department. See MAR. Independent interpretation of the following test(s) in the Emergency Department CT Scan: My interpretation is CT images reviewed by me showing stone in submandibular duct. Historians other than the Patient: Spouse/Significant Other: Patient's . Counseling: I had a detailed discussion with the patient and/or guardian regarding the historical points, exam findings, and any diagnostic results supporting the discharge/admit diagnosis, lab results, radiology results, the need for outpatient follow up, to return to the emergency department if symptoms worsen or persist or if there are any questions or concerns that arise at home. Special discussion: I discussed with the patient/guardian in detail that at this point there is no indication for admission to the hospital. It is understood, however, that if the symptoms persist or worsen the patient needs to return immediately for re-evaluation. ED course: Discussed case with Dr. Ferguson and patient to follow-up in her clinic today. Patient and his understand and agree with plan. All questions were answered. Return precautions discussed include worsening symptoms, or any other concerns. 02/13 09:27 Order name: CBC with Diff; Complete Time: 10: ms3 02/13 09:27 Order name: BMP; Complete Time: 10: ms3 02/13 09:27 Order name: Facial Bones W/ Con \T\ MPR CT; Complete Time: 10:46 ms3 Administered Medications: 10:48 Drug: morphine IVP or IV 2 mg IVP once over 4 mins Route: IVP; Infused Over: 4 mins; tm6 Site: right forearm; Disposition Summary: 02/13/23 10:52 Discharge Ordered Notes: Location: Home ms3 Condition: Stable ms3 Diagnosis - Sialolithiasis ms3 - Mouth pain ms3 Followup: ms3 - With: Griselda Ferguson MD - When: Today - Reason: Continuance of care Discharge Instructions: - Discharge Summary Sheet ms3 - Salivary Stone ms3 Forms: - Medication Reconciliation Form ms3 - Thank You Letter ms3 - Antibiotic Education ms3 - Prescription Opioid Use ms3 - Patient Portal Instructions ms3 - Leadership Thank You Letter ms3 Signatures: Dispatcher [employer] EDGideon Mcdermott DO DO ms3 Leyda Rubio RN RN ld1 Ortega Moctezuma RN RN tm6
--- NOTE | 2023-02-13 10:53 | ER ---
Nurse's Notes [facility] Name: Jacques Brown Age: 87 yrs Sex: Male : 1935 Arrival Date: 02/13/2023 Time: 08:58 Bed 7 Private MD: Wanda Ng C Diagnosis: Sialolithiasis;Mouth pain Presentation: 02/13 09:11 Chief complaint: Patient states: Sent from Dr. Turner for possible abscess to left side ld1 of mouth. Pt reports abscess for 1 week, pain to throat. Unable to eat or drink due to pain. Coronavirus screen: At this time, the client does not indicate any symptoms associated with coronavirus-19. Ebola Screen: No symptoms or risks identified at this time. Initial Sepsis Screen: Does the patient meet any 2 criteria? No. Patient's initial sepsis screen is negative. Does the patient have a suspected source of infection? No. Patient's initial sepsis screen is negative. Risk Assessment: Do you want to hurt yourself or someone else? Patient reports no desire to harm self or others. Onset of symptoms was February 13, 2023. 09:11 Method Of Arrival: Wheelchair ld1 09:11 Acuity: FRAN 3 ld1 Triage Assessment: 09:14 General: Appears in no apparent distress. uncomfortable, Behavior is calm, cooperative, ld1 appropriate for age. Pain: Complains of pain in mouth, chin and left jaw Pain does not radiate. Pain currently is 5 out of 10 on a pain scale. at worst was 10 out of 10 on a pain scale. Quality of pain is described as aching. EENT: Reports pain in mouth, chin and left jaw. Neuro: Level of Consciousness is awake, alert, obeys commands, Oriented to person, place, time, situation. Cardiovascular: Capillary refill < 3 seconds Patient's skin is warm and dry. Respiratory: Airway is patent Respiratory effort is even, unlabored. GI: Abdomen is flat, non-distended, Reports intolerance of fluids, intolerance of food. : No signs and/or symptoms were reported regarding the genitourinary system. Derm: No signs and/or symptoms reported regarding the dermatologic system. Musculoskeletal: No signs and/or symptoms reported regarding the musculoskeletal system. 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 - Social history:: Smoking status: Patient denies any tobacco usage or history of. Patient/guardian denies using alcohol. Screenin:12 [facility] ED Fall Risk Assessment (Adult) History of falling in the last 3 months, mb9 including since admission No falls in past 3 months (0 pts) Confusion or Disorientation No (0 pts) Intoxicated or Sedated No (0 pts) Impaired Gait No (0 pts) Mobility Assist Device Used No (0 pt) Altered Elimination No (0 pt) Score/Fall Risk Level 0 - 2 = Low Risk Oriented to surroundings, Maintained a safe environment, Educated pt \T\ family on fall prevention, incl call for assistance when getting out of bed. Abuse screen: Denies threats or abuse. Nutritional screening: No deficits noted. Tuberculosis screening: No symptoms or risk factors identified. Assessment: 09:15 Reassessment: See triage assessment. ld1 09:50 Reassessment: Patient appears in no apparent distress at this time. Patient and/or tm6 family updated on plan of care and expected duration. Pain level reassessed. Patient is alert, oriented x 3, equal unlabored respirations, skin warm/dry/pink. 10:43 Reassessment: Patient appears in no apparent distress at this time. Patient and/or tm6 family updated on plan of care and expected duration. Pain level reassessed. Patient is alert, oriented x 3, equal unlabored respirations, skin warm/dry/pink. Vital Signs: 09:11 BP 117 / 71; Pulse 49; Resp 18; Temp 97.9(TE); Pulse Ox 99% on R/A; Weight 58.97 kg; ld1 Height 5 ft. 11 in. ; Pain 5/10; 09:49 BP 112 / 63; Pulse 79; Resp 19; Pulse Ox 96% on R/A; tm6 10:43 BP 110 / 76; Pulse 78; Pulse Ox 97% on R/A; tm6 09:11 Body Mass Index 18.13 (58.97 kg, 180.34 cm) ld1 09:11 Pain Scale: Adult 1 ED Course: 08:59 Patient arrived in ED. rg4 09:01 Wanda Ng MD is Private Physician. rg4 09:04 Ortega Moctezuma, RN is Primary Nurse. tm6 09:07 Gideon Rubio DO is Attending Physician. ms3 09:11 Arm band placed on. mb9 09:12 Placed in gown. Bed in low position. Call light in reach. Side rails up X 1. Client mb9 placed on continuous cardiac and pulse oximetry monitoring. NIBP monitoring applied. 09:14 Triage completed. ld1 09:15 No provider procedures requiring assistance completed. ld1 09:39 BMP Sent. tm6 09:39 CBC with Diff Sent. tm6 09:50 Provided Education on: plan of care. Warm blanket given. tm6 09:50 Inserted saline lock: 20 gauge in right forearm, using aseptic technique. tm6 10:14 Facial Bones W/ Con \T\ MPR CT In Process Unspecified. EDMS 10:52 Griselda Ferguson MD is Referral Physician. ms3 10:58 IV discontinued, intact, bleeding controlled, No redness/swelling at site. ap3 Administered Medications: 10:48 Drug: morphine IVP or IV 2 mg IVP once over 4 mins Route: IVP; Infused Over: 4 mins; tm6 Site: right forearm; Medication: 10:58 VIS not applicable for this client. ap3 Outcome: 10:52 Discharge ordered by . ms3 10:58 Discharged to home via wheelchair, with family, ap3 10:58 Condition: stable 10:58 Discharge instructions given to patient, Instructed on discharge instructions, follow up and referral plans. Demonstrated understanding of instructions, follow-up care, 11:08 Patient left the ED. tm6 Signatures: Dispatcher [employer] EDMS Ksenia Olivares rg4 Sharron Durand RN RN ap3 Gideon Rubio DO DO ms3 Leyda Rubio RN RN ld1 Tamra Taylor RN RN mb9 Ortega Moctezuma, BINH RN tm6
[2023-02-13] MEDS ORDERED: MORPHINE 2 MG/ML SYR ONE (10:58)
[2023-02-13 11:40] VITALS: TEMP 97.9
[2023-02-13 11:44] VITALS: BP 110/76; O2SAT 97
== END 2023-02-13 11:08 | disposition home or self-care (01) ==
LOC: ER 08:58
DX: K11.5 Sialolithiasis (principal); Z88.8 Allergy status to other drugs, medicaments and biological substances; Z91.048 Other nonmedicinal substance allergy status; Z95.1 Presence of aortocoronary bypass graft
CPT/HCPCS: 85025; 80048; 36415; 70487; 76377; 96374; 99284; Q9967; J2270

== ENCOUNTER 2023-11-22 06:31 | Day surgery (SDC) | payer OTHER, BC ==
[2023-11-20 15:33] LABS: Absolute Basophils 0.1 K/uL (0-0.5); Absolute Eosinophils 0.1 K/uL (0-0.5); Absolute Lymphocytes (CBC) 1.1 K/uL (0.7-4.9); Absolute Monocytes 0.5 K/uL (0.1-1.3); Absolute Neutrophil 3.9 K/uL (1.8-8.0); Basophils % 0.9 % (0-1.3); Eosinophils % 1.7 % (0-4.4); Hemoglobin 10.9 g/dL (13.6-17.9); Lymphocytes % 19.9 % (15.3-44.8); MCH 26.9 pg (27.0-35.0); MCHC 32.1 g/dL (32.0-36.0); MCV 83.9 fL (80-100); Monocytes % 9.4 % (3.3-12.3); Neutrophils % 68.1 % (41.7-73.7); Platelets 178 thou/uL (152-406); RBC Red Blood Cell Count 4.05 M/uL (4.33-5.43); Red Cell Distribution Width 16.2 % (12.1-15.2)
[2023-11-20 15:40] LABS: PT Prothrombin Time 20.1 SECONDS (9.4-12.5); PTT, Activated Partial Thromb 38.7 SECONDS (24.3-36.9); Protime INR 1.83
[2023-11-20 15:44] LABS: Anion Gap 7.7 mEq/L (5.0-15.0); Potassium 4.7 mEq/L (3.5-5.1)
--- NOTE | 2023-11-21 17:47 | EKG ---
Test Date: 2023-11-20 Test Time: 15:10:54 Department Secretary: NABIL MEASUREMENT RESULTS: Intervals: Rate: 82 [place]: QRSD: 82 QT: 378 QTc: 441 [place]: P: [place]: QRS: 117 T: 22 INTERPRETIVE STATEMENTS: Atrial fibrillation Left posterior fascicular block Nonspecific T wave abnormality, probably digitalis effect Abnormal ECG Compared to ECG 11/20/2023 15:09:35 Left posterior fascicular block now present T-wave abnormality now present Right-axis deviation no longer present Myocardial infarct finding no longer present Electronically Signed On 11-21-23 17:45:23 CDT by Yaniv Andres
[2023-11-22] MEDS: Ringers Lactate 1,000 ML IV ONE (06:45)
[2023-11-22] MEDS ORDERED: EPINEPHRINE 1 MG/ML VIAL ONE (07:20)
[2023-11-22] MEDS ORDERED: propofoL 200 MG/20 ML VIAL IV ONE ×2 (08:14→08:15)
[2023-11-22] MEDS ORDERED: LIDOCAINE 1% MPF 5 ML VIAL ONE (08:14)
[2023-11-22 10:45] VITALS: TEMP 97.1; O2SAT 100
[2023-11-22 10:46] VITALS: BP 103/62
--- NOTE | 2023-11-22 17:01 | EKG ---
Test Date: 2023-11-20 Test Time: 15:09:35 Credit Review Manager: NABIL MEASUREMENT RESULTS: Intervals: Rate: 91 [place]: 128 QRSD: 64 QT: 354 QTc: 435 [place]: P: 98 [place]: 128 QRS: 119 T: 75 INTERPRETIVE STATEMENTS: Suspect arm lead reversal, interpretation assumes no reversal Undetermined rhythm, lot of artifact Right axis deviation Septal infarct, age undetermined Abnormal ECG Compared to ECG 11/23/2022 16:30:50 Right-axis deviation now present Myocardial infarct finding now present Atrial fibrillation no longer present Ventricular premature complex(es) no longer present Left posterior fascicular block no longer present ST (T wave) deviation no longer present Electronically Signed On 11-22-23 16:58:45 CDT by Yaniv Andres
== END 2023-11-22 10:35 | disposition home or self-care (01) ==
LOC: OR 06:31
PROVIDERS: ATTEND Internal Medicine Gastroenterology
DX: R13.10 Dysphagia, unspecified (principal); F45.8 Other somatoform disorders; Z53.8 Procedure and treatment not carried out for other reasons
CPT/HCPCS: 93005 ×2; 85025; 80048; 36415; 85610; 85730; J2704; J2001; J7120; J0171

== ENCOUNTER 2023-12-13 06:18 | Day surgery (SDC) | payer OTHER, BC ==
[2023-12-13] MEDS ORDERED: Ringers Lactate 1,000 ML IV ONE (06:47)
[2023-12-13] MEDS ORDERED: LIDOCAINE 1% MPF 5 ML VIAL ONE (07:57)
[2023-12-13] MEDS ORDERED: propofoL 200 MG/20 ML VIAL IV ONE (07:58)
[2023-12-13 10:17] VITALS: BP 111/64; TEMP 97.9; O2SAT 98
== END 2023-12-13 09:15 | disposition home or self-care (01) ==
LOC: OR 06:18
PROVIDERS: ATTEND Internal Medicine Gastroenterology
PROC: 0DB68ZX Excision of Stomach, Via Natural or Artificial Opening Endoscopic, Diagnostic (ICD-10-PCS; 2023-12-13)
PROC: 0DB78ZX Excision of Stomach, Pylorus, Via Natural or Artificial Opening Endoscopic, Diagnostic (ICD-10-PCS; 2023-12-13)
PROC: 0D728ZZ Dilation of Middle Esophagus, Via Natural or Artificial Opening Endoscopic (ICD-10-PCS; principal; 2023-12-13 07:30)
DX: R13.10 Dysphagia, unspecified (principal); K22.2 Esophageal obstruction; K21.00 Gastro-esophageal reflux disease with esophagitis, without bleeding; B37.81 Candidal esophagitis; K29.50 Unspecified chronic gastritis without bleeding
CPT/HCPCS: 88312; 88305; 43248; 43239; J2704; J2001; J7120

== ENCOUNTER 2024-03-11 06:46 | Day surgery (SDC) | payer OTHER, BC ==
--- NOTE | 2024-03-11 07:21 | RAD REPORT ---
Procedure: Chest Single View HISTORY: Preop for port removal. COMPARISON: 2022 FINDINGS: The lungs appear clear of acute infiltrate. Lungs are markedly hyperaerated. No significant pleural effusion noted. The heart is normal size.. Post surgical changes involve the chest. IMPRESSION: COPD without visualization acute abnormality.
[2024-03-11] MEDS ORDERED: LIDOCAINE 1% 20 ML MDV ONE (07:43)
[2024-03-11] MEDS: Ringers Lactate 1,000 ML IV ONE (07:45)
[2024-03-11 07:46] LABS: Absolute Basophils 0.1 K/uL (0-0.5); Absolute Eosinophils 0.2 K/uL (0-0.5); Absolute Lymphocytes (CBC) 1.8 K/uL (0.7-4.9); Absolute Monocytes 0.6 K/uL (0.1-1.3); Absolute Neutrophil 3.8 K/uL (1.8-8.0); Basophils % 0.9 % (0-1.3); Hematocrit 34.9 % (39.6-49.0); Hemoglobin 10.9 g/dL (13.6-17.9); Lymphocytes % 27.3 % (15.3-44.8); MCH 26.8 pg (27.0-35.0); MCHC 31.1 g/dL (32.0-36.0); MPV 9.5 fL (7.6-11.3); Monocytes % 9.7 % (3.3-12.3); Neutrophils % 59.1 % (41.7-73.7); Platelets 184 thou/uL (152-406); RBC Red Blood Cell Count 4.05 M/uL (4.33-5.43); Red Cell Distribution Width 22.2 % (12.1-15.2)
[2024-03-11 07:58] LABS: Anion Gap 8.2 mEq/L (5.0-15.0); Potassium 4.2 mEq/L (3.5-5.1)
[2024-03-11] MEDS ORDERED: propofoL 200 MG/20 ML VIAL IV ONE (08:27)
[2024-03-11] MEDS: CEFAZOLIN SODIUM 2 GM/VIAL ONE (08:38)
--- NOTE | 2024-03-11 09:34 | P.OP ---
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 MAC anesthesia began. Patient prepped and draped in usual sterile fashion. Marcaine 0.5% infiltrated locally. 15 blade used to make approximately a 5 x 3 cm incision around this 2.5 cm ulcerated mass raised. Subcutaneous tissue divided with cautery. Entire mass excised and sent to pathology for frozen section. Frozen section revealed squamous cell carcinoma with margins free. Wound irrigated and bleeding controlled with cautery. Flaps created. 4-0 chromic used to reapproximate subcutaneous tissue. And 5-0 Prolene used to close skin. Sterile dressing applied. Patient awakened and taken to recovery room in good general condition. CC:
[2024-03-11 09:44] VITALS: O2SAT 100
[2024-03-11 09:51] LABS: Blood Morphology Comment NOTED (NOT SEEN); Platelet Estimate ADEQ; White Blood Cell Scan OK (OK)
[2024-03-11 09:52] LABS: ACANTHOCYTE 1+; Anisocytosis 1+
[2024-03-11 11:17] VITALS: BP 116/64; TEMP 97.6
== END 2024-03-11 11:05 | disposition home or self-care (01) ==
LOC: OR 06:46
PROVIDERS: ATTEND Surgery
PROC: 0JBH0ZZ Excision of Left Lower Arm Subcutaneous Tissue and Fascia, Open Approach (ICD-10-PCS; principal; 2024-03-11 08:30)
DX: D04.62 Carcinoma in situ of skin of left upper limb, including shoulder (principal)
CPT/HCPCS: 85025; 80048; 36415; 88331; 88332; 88305; 71045; 11606; J2704; J7120; 93005; J2003

== ENCOUNTER 2024-06-04 00:04 | Emergency (ER) | payer OTHER, BC ==
[2024-06-04] MEDS ORDERED: OXYMETAZOLINE HCL 0.05% 30ML NAS ONE (00:15)
--- NOTE | 2024-06-04 00:39 | ER ---
Nurse's Notes [facility] Name: Jacques Brown Age: 89 yrs Sex: Male : 1935 Arrival Date: 06/04/2024 Time: 00:04 Bed 5 Private MD: Diagnosis: Epistaxis Presentation: 06/04 00:23 Chief complaint: EMS states: Pt reports a nose bleed that started at 2200. Bleeding jb4 seems to have slowed. Coronavirus screen: At this time, the client does not indicate any symptoms associated with coronavirus-19. Ebola Screen: No symptoms or risks identified at this time. Initial Sepsis Screen: Does the patient meet any 2 criteria? No. Patient's initial sepsis screen is negative. Does the patient have a suspected source of infection? No. Patient's initial sepsis screen is negative. Risk Assessment: Do you want to hurt yourself or someone else? Patient reports no desire to harm self or others. Onset of symptoms was June 04, 2024. 00:23 Method Of Arrival: Ambulatory jb4 00:23 Acuity: FRAN 4 jb4 Historical: - Allergies: 00:29 Albuterol; jb4 00:29 dust mites; jb4 00:29 MOLD; jb4 - PMHx: 00:29 Atrial fibrillation; restless leg syndrome; shingles; jb4 - PSHx: 00:29 Coronary artery bypass graft; jb4 - Immunization history:: Adult Immunizations up to date. - Infectious Disease History:: Denies. - Social history:: Smoking status: Patient denies any tobacco usage or history of. Screenin:29 [facility] ED Fall Risk Assessment (Adult) History of falling in the last 3 months, bp including since admission No falls in past 3 months (0 pts) Confusion or Disorientation No (0 pts) Intoxicated or Sedated No (0 pts) Impaired Gait No (0 pts) Mobility Assist Device Used No (0 pt) Altered Elimination No (0 pt) Score/Fall Risk Level 0 - 2 = Low Risk Oriented to surroundings. Abuse screen: Denies threats or abuse. Denies injuries from another. Nutritional screening: No deficits noted. Tuberculosis screening: No symptoms or risk factors identified. Assessment: 00:30 General: Appears in no apparent distress. comfortable, Behavior is calm, cooperative, jb4 appropriate for age, bleeding appears to have stopped. Pain: Denies pain. Neuro: Level of Consciousness is awake, alert, obeys commands, Oriented to person, place, time, situation. Cardiovascular: Patient's skin is warm and dry. Respiratory: Airway is patent Respiratory effort is even, unlabored, Respiratory pattern is regular, symmetrical. Derm: Skin is intact, Skin is pink, warm \T\ dry. Musculoskeletal: Circulation, motion, and sensation intact. Range of motion: intact in all extremities. 01:22 Reassessment: Patient appears in no apparent distress at this time. Patient and/or jb4 family updated on plan of care and expected duration. Pain level reassessed. Patient is alert, oriented x 3, equal unlabored respirations, skin warm/dry/pink. D/c pending due to pt now bleeding again. 02:46 Reassessment: Patient appears in no apparent distress at this time. Patient and/or jb4 family updated on plan of care and expected duration. Pain level reassessed. Patient is alert, oriented x 3, equal unlabored respirations, skin warm/dry/pink. Pt still bleeding, no longer up for discharge. 07:29 Reassessment: RECD REPORT FROM DONAL PURCELL. ENT C/S PENDING. bp 07:45 Reassessment: DR GUADARRAMA WITH ENT AT B/S. bp Vital Signs: 00:23 BP 133 / 75; Pulse 96; Resp 16; Temp 97.3(TE); Pulse Ox 98% on R/A; Weight 56.7 kg (R); jb4 Height 5 ft. 11 in. (R); 01:00 BP 130 / 64; Pulse 95; Resp 16; Pulse Ox 95% on 2.5 lpm NC; jb4 02:45 BP 156 / 76; Pulse 86; Resp 20; Pulse Ox 98% on 3 lpm NC; jb4 07:28 BP 130 / 81; Pulse 100; Resp 18; Pulse Ox 100% ; bp 07:42 BP 126 / 86; Pulse 102; Resp 20; Pulse Ox 95% on NC; rs6 08:21 BP 136 / 80; Pulse 102; Pulse Ox 96% on NC; rs6 00:23 Body Mass Index 17.43 (56.70 kg, 180.34 cm) jb4 ED Course: 00:05 Patient arrived in ED. jj6 00:06 Sherwin Petersen MD is Attending Physician. sp3 00:29 Triage completed. jb4 00:29 Arm band placed on right wrist. jb4 02:43 Troponin HS Sent. jb4 02:43 PT-INR Sent. jb4 02:43 CBC with Diff Sent. jb4 02:43 Basic Metabolic Panel Sent. jb4 03:09 No provider procedures requiring assistance completed. Assist provider with nosebleed bm8 control using Afrin sprays, direct pressure, nasal clamp, rhino rocket placed for extensive packing needs, Bleeding from right nares. Set up for procedure. Performed by Sherwin Petersen MD Bleeding continues Patient tolerated poorly. Inserted saline lock: 18 gauge in right forearm, using aseptic technique. Blood collected. Flushed with 10 mL NS. O2 via 3l orally placed due to rhino rocket. 03:47 Donal Graham, RN is Primary Nurse. bm8 07:06 Attending Physician role handed off by Sherwin Petersen MD ms3 07:06 Gideon Rubio DO is Attending Physician. ms3 07:29 Patient has correct armband on for positive identification. bp 07:43 Assisted with urinal. rs6 08:26 Nelsy Guadarrama MD is Referral Physician. ms3 08:41 IV discontinued, intact, bleeding controlled, No redness/swelling at site. Pressure bp dressing applied. 08:42 Provided Education on: NA. bp Administered Medications: 00:22 Drug: Oxymetazoline Intranasal Drops (0.05 %) 1 sprays Intranasal once {Note: jb4 administered 3 sprays per ER physicians instructions. .} Route: Intranasal; Site: right nare; 03:09 CANCELLED (Physician Discretion): Andexxa 400 mg IV at calculated rate once; administer bm8 at a rate of 30 mg/minute 03:09 CANCELLED (Physician Discretion): Andexxa 480 mg IV at calculated rate once; administer bm8 at a rate of 4 mg/min for up to 120 minutes 03:53 Drug: traMADol PO 50 mg PO once Route: PO; vc1 08:43 Follow up: Response: No adverse reaction bp 05:31 Not Given (Other Intervention Used): [id number] mg PO once vc1 05:31 Drug: Ativan IVP 1 mg IVP once Route: IVP; Site: right upper arm; vc1 08:43 Follow up: Response: No adverse reaction bp Medication: 08:42 VIS not applicable for this client. bp Outcome: 00:39 Discharge ordered by . sp3 08:27 Discharge ordered by . ms3 08:41 Discharged to home via wheelchair, with family, bp 08:41 Condition: stable 08:41 Discharge instructions given to patient, Instructed on discharge instructions, follow up and referral plans. medication usage, Demonstrated understanding of instructions, follow-up care, medications, Prescriptions given X 1, 08:43 Patient left the ED. bp Signatures: Boy Laguna, RN RN jb4 Yvan Cota, RN RN bp Gideon Rubio DO DO ms3 Sherwin Petersen MD MD sp3 Mraylin Pickens jj6 Fernanda Barreto RN RN vc1 Donal Grahma, RN RN bm8 Gerard Alcantar rs6
--- NOTE | 2024-06-04 00:39 | EDPHYS ---
Physician Documentation [facility] Name: Jacques Brown Age: 89 yrs Sex: Male : 1935 Arrival Date: 06/04/2024 Time: 00:04 Bed 5 Private MD: ED Physician Gideon Rubio HPI: 06/04 00:18 This 89 yrs old Male presents to ER via Unassigned with complaints of Nose Bleed. sp3 00:18 89-year-old male with history of atrial fibrillation now status post watchman's still sp3 on Eliquis with tomorrow being his last day presents via EMS for spontaneous epistaxis of the right nare. No trauma, injury or other bleeding reported. ROS otherwise negative.. Historical: - Allergies: 00:29 Albuterol; jb4 00:29 dust mites; jb4 00:29 MOLD; jb4 - PMHx: 00:29 Atrial fibrillation; restless leg syndrome; shingles; jb4 - PSHx: 00:29 Coronary artery bypass graft; jb4 - Immunization history:: Adult Immunizations up to date. - Infectious Disease History:: Denies. - Social history:: Smoking status: Patient denies any tobacco usage or history of. ROS: 00:22 Constitutional: Negative for fever, chills, and weight loss, Eyes: Negative for injury, sp3 pain, redness, and discharge, Neck: Negative for injury, pain, and swelling, Cardiovascular: Negative for chest pain, palpitations, and edema, Respiratory: Negative for shortness of breath, cough, wheezing, and pleuritic chest pain, Abdomen/GI: Negative for abdominal pain, nausea, vomiting, diarrhea, and constipation, Back: Negative for injury and pain, MS/Extremity: Negative for injury and deformity, Skin: Negative for injury, rash, and discoloration, Neuro: Negative for headache, weakness, numbness, tingling, and seizure, 00:22 All other systems are negative, Exam: 00:22 Constitutional: This is a well developed, well nourished patient who is awake, alert, sp3 and in no acute distress. Head/Face: Normocephalic, atraumatic. Eyes: Pupils equal round and reactive to light, extra-ocular motions intact. Lids and lashes normal. Conjunctiva and sclera are non-icteric and not injected. Cornea within normal limits. Periorbital areas with no swelling, redness, or edema. Neck: Trachea midline, no thyromegaly or masses palpated, and no cervical lymphadenopathy. Supple, full range of motion without nuchal rigidity, or vertebral point tenderness. No Meningismus. Chest/axilla: Normal chest wall appearance and motion. Nontender with no deformity. No lesions are appreciated. Cardiovascular: Regular rate and rhythm with a normal S1 and S2. No gallops, murmurs, or rubs. Normal PMI, no JVD. No pulse deficits. Respiratory: Lungs have equal breath sounds bilaterally, clear to auscultation and percussion. No rales, rhonchi or wheezes noted. No increased work of breathing, no retractions or nasal flaring. Abdomen/GI: Soft, non-tender, with normal bowel sounds. No distension or tympany. No guarding or rebound. No evidence of tenderness throughout. Back: No spinal tenderness. No costovertebral tenderness. Full range of motion. Skin: Warm, dry with normal turgor. Normal color with no rashes, no lesions, and no evidence of cellulitis. MS/ Extremity: Pulses equal, no cyanosis. Neurovascular intact. Full, normal range of motion. Neuro: Awake and alert, GCS 15, oriented to person, place, time, and situation. Cranial nerves II-XII grossly intact. Motor strength 5/5 in all extremities. Sensory grossly intact. Cerebellar exam normal. Normal gait. Psych: Awake, alert, with orientation to person, place and time. Behavior, mood, and affect are within normal limits. 00:22 ENT: Nose: Fresh clots right near. No active bleeding noted., Vital Signs: 00:23 BP 133 / 75; Pulse 96; Resp 16; Temp 97.3(TE); Pulse Ox 98% on R/A; Weight 56.7 kg (R); jb4 Height 5 ft. 11 in. (R); 01:00 BP 130 / 64; Pulse 95; Resp 16; Pulse Ox 95% on 2.5 lpm NC; jb4 02:45 BP 156 / 76; Pulse 86; Resp 20; Pulse Ox 98% on 3 lpm NC; jb4 07:28 BP 130 / 81; Pulse 100; Resp 18; Pulse Ox 100% ; bp 07:42 BP 126 / 86; Pulse 102; Resp 20; Pulse Ox 95% on NC; rs6 08:21 BP 136 / 80; Pulse 102; Pulse Ox 96% on NC; rs6 00:23 Body Mass Index 17.43 (56.70 kg, 180.34 cm) jb4 MDM: 00:06 Medical Screening Exam initiated sp3 00:23 Data reviewed: vital signs, nurses notes. ED course: Spontaneous epistaxis of the right sp3 nare. We will spray Afrin no spray and patient applied direct pressure externally. Vital signs normal. As long as no recurrence of bleeding, we will safely discharge patient home. Will stop Eliquis now.. 01:52 ED course: Prior to discharge patient had recurrent bleeding. That did not stop with sp3 Afrin. Rhino Rocket was placed after soaking in sterile water and filled with air. Patient to follow-up with the ENT which patient has. Eliquis has been stopped. Antibiotics will be given.. 02:22 ED course: Patient with continued bleeding posteriorly. We will await a little bit sp3 longer to see if anterior Rhino Rocket works. now back with med list and demonstrates Xarelto not Eliquis, and Plavix. We will need to administer Andexxa if bleeding does not stop. Patient has already had a Watchman procedure and risk of clotting is low and he is set to stop the Xarelto tomorrow anyways.. 02:49 ED course: Now is saying that the last dose of Xarelto was 4 months ago and only sp3 thing he is on his aspirin and Plavix with last dose earlier today. We do not have platelets available at this facility. Current plan is not going to be to check his labs and keep patient in the ED until ENT can see him in the morning.. 05:33 ED course: Discussed with Dr. Easley who will be in to see patient this morning.. sp3 07:06 Transition of care: Care assumed from Sherwin Petersen MD. ms3 08:27 ED course: Dr. Easley has seen patient and discussed case with Dr. Alan. Patient to ms3 discontinue Plavix at this time. Patient to continue baby aspirin. She recommends patient be placed on Augmentin. Patient to follow-up in her clinic on or Monday for packing removal. Discussed plan with patient and his and they understand and agree with plan. Patient is alert, in no apparent distress, nontoxic-appearing, without epistaxis at this time.. 06/04 02:26 Order name: Basic Metabolic Panel; Complete Time: 03:18 sp3 06/04 02:26 Order name: CBC with Diff; Complete Time: 03:18 sp3 06/04 02:26 Order name: PT-INR; Complete Time: 03:18 sp3 06/04 02:26 Order name: Troponin HS; Complete Time: 03:18 sp3 06/04 02:26 Order name: Ptt, Activated; Complete Time: 03:18 sp3 06/04 00:14 Order name: NPO; Complete Time: 00:23 sp3 06/04 02:26 Order name: IV Saline Lock; Complete Time: 03:09 sp3 06/04 02:26 Order name: Labs collected and sent; Complete Time: 02:43 sp3 06/04 02:26 Order name: O2 Per Protocol; Complete Time: 02:43 sp3 06/04 02:26 Order name: O2 Sat Monitoring; Complete Time: 02:43 sp3 Administered Medications: 00:22 Drug: Oxymetazoline Intranasal Drops (0.05 %) 1 sprays Intranasal once {Note: jb4 administered 3 sprays per ER physicians instructions. .} Route: Intranasal; Site: right nare; 03:09 CANCELLED (Physician Discretion): Andexxa 400 mg IV at calculated rate once; administer bm8 at a rate of 30 mg/minute 03:09 CANCELLED (Physician Discretion): Andexxa 480 mg IV at calculated rate once; administer bm8 at a rate of 4 mg/min for up to 120 minutes 03:53 Drug: traMADol PO 50 mg PO once Route: PO; vc1 08:43 Follow up: Response: No adverse reaction bp 05:31 Not Given (Other Intervention Used): [id number] mg PO once vc1 05:31 Drug: Ativan IVP 1 mg IVP once Route: IVP; Site: right upper arm; vc1 08:43 Follow up: Response: No adverse reaction bp Disposition Summary: 06/04/24 08:27 Discharge Ordered Notes: Location: Home(06/04/24 08:27) ms3 Condition: Stable(06/04/24 08:27) ms3 Diagnosis - Epistaxis(06/04/24 08:27) ms3 Followup: ms3 - With: Nelsy Easley MD - When: 2 - 3 days - Reason: Recheck today's complaints Discharge Instructions: - Discharge Summary Sheet ms3 - Nosebleed, Adult ms3 Forms: - Medication Reconciliation Form ms3 - Antibiotic Education ms3 - Prescription Opioid Use ms3 - Patient Portal Instructions ms3 - Leadership Thank You Letter ms3 Prescriptions: - Augmentin 875-125 mg Oral tablet - take 1 tablet ORAL route every 12 hours for 7 days; 14 tablet; Refills: 0, ms3 Product Selection Permitted Signatures: Dispatcher [employer] EDBoy Stanford RN RN jb4 Yvan Cota RN RN Gideon Haynes DO DO ms3 Sherwin Petersen MD MD sp3 Fernanda Barreto RN RN vc1 Harman Graham RN bm8 Corrections: (The following items were deleted from the chart) 02:22 00:39 Home sp3 sp3 02:22 00:39 Stable sp3 sp3 02:22 00:39 Epistaxis sp3 sp3 03:09 02:29 Andexxa 400 mg IV at calculated rate once; administer at a rate of 30 mg/minute bm8 ordered. sp3 03:09 02:29 Andexxa 480 mg IV at calculated rate once; administer at a rate of 4 mg/min for bm8 up to 120 minutes ordered. sp3
[2024-06-04] MEDS ORDERED: WATER FOR INJ,STERILE 0 ML ONE (01:44)
[2024-06-04 03:01] LABS: Absolute Basophils 0.1 K/uL (0-0.5); Absolute Eosinophils 0.2 K/uL (0-0.5); Absolute Lymphocytes (CBC) 1.8 K/uL (0.7-4.9); Absolute Monocytes 0.8 K/uL (0.1-1.3); Absolute Neutrophil 6.7 K/uL (1.8-8.0); Basophils % 0.6 % (0-1.3); Eosinophils % 1.6 % (0-4.4); Hematocrit 42.4 % (39.6-49.0); Hemoglobin 14.1 g/dL (13.6-17.9); Lymphocytes % 19.5 % (15.3-44.8); MCH 30.1 pg (27.0-35.0); MCHC 33.2 g/dL (32.0-36.0); MCV 90.7 fL (80-100); MPV 9.4 fL (7.6-11.3); Neutrophils % 70.3 % (41.7-73.7); Platelets 150 thou/uL (152-406); RBC Red Blood Cell Count 4.67 M/uL (4.33-5.43); Red Cell Distribution Width 15.8 % (12.1-15.2)
[2024-06-04 03:05] LABS: PT Prothrombin Time 12.1 SECONDS (10.0-13.0); PTT, Activated Partial Thromb 28.6 SECONDS (24.3-36.9); Protime INR 1.06
[2024-06-04 03:15] LABS: Anion Gap 8.5 mEq/L (5.0-15.0); Potassium 4.5 mEq/L (3.5-5.1); Troponin High Sensitivity 23.2 pg/mL (<58.9)
[2024-06-04] MEDS ORDERED: TRAMADOL HCL 50 MG TAB ONE (03:45)
[2024-06-04] MEDS ORDERED: LORazepam 2 MG/ML VIAL ONE (05:22)
[2024-06-04 09:01] VITALS: TEMP 97.3
[2024-06-04 09:11] VITALS: BP 136/80; O2SAT 96
--- NOTE | 2024-06-04 10:19 | CON ---
Date of Consultation: 06/04/2024 Reason For Consultation: Nosebleed. History Of Present Illness: Mr. Brown presented to the emergency room around midnight with nasal ble eding from the right side, which started around 10 p.m. He was treated by the emergency room, includ ing placement of a Rhino Rocket after failed topical oxymetazoline. The patient was reported to have continued posterior bleeding, and ENT consult was requested. Of note, the patient has a history of atrial fibrillation and was previously treated by Dr. Alan, including ablations and a Watchman proc edure approximately 4 months ago. He has since been taken off Xarelto, but continues on Plavix and 8 1 mg of aspirin daily. He has not had any prior significant nosebleed. He has a history of restless legs. Had a fall from his chair while sleeping approximately 2 days ago, but did not have any nasal bleeding at that time. The patient's also notes he has a history of some sinus concerns and in quires about the utility of a CT scan. Physical Examination: The patient is sedated, having recently received Ativan and tramadol. He has a Rhino Rocket in the r ight nasal cavity with no active bleeding anteriorly. The left nasal cavity is clear. His oral exam demonstrates dried blood on the soft palate with a 1 cm clot hanging from the nasopharynx and visibl e behind the palate. However, there is no active blood noted at this time. Assessment: 1. Right epistaxis with concurrent use of antiplatelet medications and history of atrial fibrillation . Care coordination is undertaken with Dr. Alan regarding this patient's care. He confirmed that given the duration since the Watchman and the current nosebleed, he can discontinue the Plavix, but s hould continue daily aspirin 81 mg. Additionally, he said there was no contraindication to the use o f TXA should it be necessary in the future. At this time, since the patient's bleeding appears to huynh ve stopped with current treatment, I do not recommend surgical or pharmacologic treatment at this wil e. I recommended they continue the current Rhino Rocket and follow up in my office on Monday for rem oval of packing. If the patient has recurrence of bleeding, he should return to the emergency room a t which time I would recommend a one-time dose of tranexamic acid IV with close monitoring with alter natives for surgical intervention, including nasal endoscopy with control of epistaxis if more conser vative measures are inadequate. 2. Chronic sinus complaints. Given the acuity of the patient's condition with recent severe noseblee d, CT of the sinuses is unlikely to be clinically useful at this time and I would recommend outpatien t evaluation for sinus complaints. PAIGE/ILIANA Voice ID: [id number] Report ID: [id number]
== END 2024-06-04 08:43 | disposition home or self-care (01) ==
LOC: ER 00:04
DX: R04.0 Epistaxis (principal); I48.91 Unspecified atrial fibrillation; Z79.01 Long term (current) use of anticoagulants; Z95.1 Presence of aortocoronary bypass graft; Z95.818 Presence of other cardiac implants and grafts
CPT/HCPCS: 36415; 80048; 84484; 85025; 85610; 85730